=== PATIENT | female | born 1930 | race Caucasian/White ===

== ENCOUNTER 2017-06-04 07:03 | Inpatient (IN) ==
[2017-06-04] MEDS ORDERED: DiltiaZEM 25 MG/5 ML INJECTION IVP ONE ×3 (07:15→07:56)
[2017-06-04] MEDS ORDERED: NS 1,000 ML IV ONE (07:15)
--- OUTSIDE RECORDS SUMMARY | 2017-06-04 07:19 | External Medical Summary | Referral Summary ---
:1930 Author Organization [facility] [place] [address] Care Team Providers Name Role Phone Pankaj Arora V Primary Care Physician Encounter [facility] [id number] Date(s): 04/29/15 - 04/29/15 [facility] [place] [phone] [place] Discharge Diagnosis: Screening Discharge Diagnosis: Myalgia Discharge Diagnosis: Need for pneumococcal vaccination Discharge Diagnosis: Hyperlipidemia Discharge Diagnosis: Depression Discharge Diagnosis: Benign essential tremor Discharge Diagnosis: Urine frequency Discharge Diagnosis: Degenerative joint disease involving multiple joints Discharge Diagnosis: Night sweats Discharge Diagnosis: Benign essential hypertension Discharge Disposition: 01-Home or Self Care Attending Physician: Pankaj Arora MD Admitting Physician: Pankaj Arora MD Vital Signs Most recent to oldest [Reference Range]: 1 Temperature Tympanic [36.6-38.1 degC] 35.9 degC *LOW* (04/29/15 9:35 AM) Peripheral Pulse Rate [60-100 bpm] 69 bpm (04/29/15 9:35 AM) Blood Pressure [90-140/60-90 mmHg] 130/60 mmHg (04/29/15 9:35 AM) Problem List Condition Effective Dates Status Health Status Informant Acute cystitis (disorder)(Confirmed) Active Acute cystitis(Confirmed) Active Allergic rhinitis Active (disorder)(Confirmed) Allergic rhinitis(Confirmed) Active Allergies(Confirmed) Active Benign essential hypertension Active (disorder)(Confirmed) Benign essential tremor(Confirmed) Active Generalized osteoarthritis Active (disorder)(Confirmed) Depression(Confirmed) Active Diagnosis - PVSC(Confirmed) Active ESSENTIAL AND OTHER SPECIFIED FORMS OF Active TREMOR(Confirmed) H/O fracture of humerus Active left(Confirmed) Hyperlipidemia(Confirmed) Active Hypertension(Confirmed) Active Malignant neoplasm of skin(Confirmed) Active Normal pressure 2001 Active hydrocephalus(Confirmed) Normal pressure Active hydrocephalus(Confirmed) Osteoarthritis(Confirmed) Active OTHER PREMATURE BEATS(Confirmed) Active Postmenopausal(Confirmed)1 Active Postmenopausal state Active (finding)(Confirmed) Problems with sight(Confirmed) Active Recurrent cystitis(Confirmed) Active Skin cancer(Confirmed) Active 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 Vision problems(Confirmed) Active 1Age Related - natural Allergies, Adverse Reactions, Alerts No Known Medication Allergies Medications amLODIPine 5 mg oral tablet 5 mg, Oral, Daily, # 90 Each, 3 Refill(s), Pharmacy: [facility], 5 mg Oral Daily Start Date: 11/13/14 Status: Orderedatenolol 100 mg oral tablet 1 tabs, Oral, Daily, # 90 tabs, 3 Refill(s), Pharmacy: [facility], 1 tabs Oral Daily Start Date: 08/31/14 Status: OrderedCalcium 600+D See Instructions, 1 tabs Oral every other day, 0 Refill(s) Start Date: 04/23/14 Status: OrderedFish Oil oral capsule 1 caps, Oral, Daily, # 100 caps, 0 Refill(s) Start Date: 04/23/14 Status: OrderedFluvirin [id number] intramuscular suspension 0 Refill(s) Start Date: 04/23/14 Status: Orderedhydrochlorothiazide 12.5 mg oral capsule 12.5 mg 1 caps, Oral, Daily, # 90 caps, 3 Refill(s), Pharmacy: [facility], 1caps Oral Daily Start Date: 05/10/15 Status: Orderedlosartan 100 mg oral tablet 0.5 tabs, Oral, Daily, # 45 tabs, 3 Refill(s), Pharmacy: [facility], 0.5 tabs Oral Daily Start Date: 09/24/14 Status: Orderedpravastatin 40 mg oral tablet 40 mg, Oral, Bedtime (once a day), # 90 tabs, 0 Refill(s), Pharmacy: [facility], 40 mg Oral Bedtime (once a day) Start Date: 03/12/15 Status: Orderedsertraline 100 mg oral tablet 100 mg 1 tabs, Oral, Daily, # 90 tabs, 1 Refill(s), Pharmacy: [facility], 1 tabs Oral Daily Start Date: 04/10/15 Status: OrderedVitamin C 0 Refill(s) Start Date: 04/23/14 Status: Ordered Results No data available for this section Immunizations Vaccine Date Refusal Reason tetanus/diphth/pertuss (Tdap) adult/adol 03/15/13 hepatitis A adult vaccine 11/08/96 influenza virus vaccine, H1N1, inactivat 09/25/09 influenza virus vaccine, inactivated 07/02/15 influenza virus vaccine, inactivated 06/28/14 influenza virus vaccine, live 06/09/13 influenza virus vaccine, live 06/01/12 influenza virus vaccine, live 06/10/11 pneumococcal 13-valent conjugate vaccine 07/02/15 pneumococcal 13-valent conjugate vaccine 04/29/15 pneumococcal 23-polyvalent vaccine 05/21/03 tetanus-diphth toxoids (Td) adult/adol 03/18/01 Procedures Procedure Date Related Diagnosis Body Site Mammogram - screening 01/05/12 Open reduction with internal fixation 2010 DEXA - Diagnostic 04/25/09 Mammogram diagnostic 03/18/09 Colonoscopy 01/23/02 Shunt 2002 Appendectomy Cataract extraction Perineal tear repair Tonsillectomy Social History Social History Type Response Smoking Status Never smoker Assessment and Plan Extracted from: Title: CRMMP Author: Pankaj Arora MD Date: 04/29/15 Assessment/Plan Benign essential hypertension Stable. Continue present care. Ordered: Basic Metabolic Panel CBC w/ Differential Benign essential tremor Degenerative joint disease involving multiple joints Depression Hyperlipidemia Ordered: Lipid Panel Myalgia Ordered: Creatine Kinase Need for pneumococcal vaccination Ordered: pneumococcal 13-valent conjugate vaccine, 0.5 mL, IntraMuscular, Daily, Order Duration: 1 doses, First Dose: 04/29/15 10:26:00 CDT, Stop Date: 04/30/15 8:59: 00 CDT, Form: Syringe Night sweats Ordered: Sedimentation Rate Screening Ordered: MG Mammogram Routine Screening Bilat Urine frequency Ordered: Urinalysis with Culture if Indicated Orders: MG Mammogram Routine Screening Bilat She has multiple issues but overall seems to be fairly stable. The night sweats raise a concern about an inflammatory process and we will do CBC and sedimentation rate. Myalgias and arthralgias als o raises a concern about statin-induced myopathy and we will check a CPK level. Obtain urinalysis to rule out treatable/infectious cause of her urine frequency. She'll come in fasting another day fo r the labs. Continue current medications. Follow-up 6 months or sooner if needed.
--- OUTSIDE RECORDS SUMMARY | 2017-06-04 07:19 | External Medical Summary | Referral Summary ---
:1930 Author Organization [facility] [place] [address] Care Team Providers Name Role Phone Pankaj Arora V Primary Care Physician Encounter [facility] [id number] Date(s): 04/29/15 - 04/29/15 [facility] [address] [place] [phone] [place] Discharge Diagnosis: [...] Daily, # 90 Each, 3 Refill(s), [facility], 5 mg Oral Daily Start Date: 11/13/14 Status: Orderedatenolol 100 mg oral tablet 1 tabs, Oral, Daily, # 90 tabs, 3 Refill(s), Pharmacy: [facility], 1 tabs Oral Daily Start Date: 08/31/14 Status: OrderedCalcium 600+D See Instructions, 1 tabs Oral every other day, 0 Refill(s) Start Date: 04/23/14 Status: OrderedFish Oil oral capsule 1 caps, Oral, Daily, # 100 caps, 0 Refill(s) Start Date: 04/23/14 Status: OrderedFluvirin [id number] intramuscular suspension 0 Refill(s) Start Date: 04/23/14 Status: Orderedhydrochlorothiazide 12.5 mg oral capsule 12.5 mg 1 caps, Oral, Daily, # 90 caps, 3 Refill(s), Pharmacy: [facility], 1caps Oral Daily Start Date: 05/10/15 Status: Orderedlosartan 100 mg oral tablet 0.5 tabs, Oral, Daily, # 45 tabs, 3 Refill(s), [facility], 0.5 tabs Oral Daily Start Date: 09/24/14 Status: Orderedpravastatin 40 mg oral tablet 40 mg, Oral, Bedtime (once a day), # 90 tabs, 0 Refill(s), [facility], 40 mg Oral Bedtime (once a day) Start Date: 03/12/15 Status: Orderedsertraline 100 mg oral tablet 100 mg 1 tabs, Oral, Daily, # 90 tabs, 1 Refill(s), Pharmacy: [email or web address], 1 tabs Oral Daily [...]
--- OUTSIDE RECORDS SUMMARY | 2017-06-04 07:20 | External Medical Summary | Referral Summary ---
:1930 Author Organization [facility] [address] [place] [address] Care Team Providers Name Role Phone Pankaj Arora V Primary Care Physician Encounter [facility] [id number] Date(s): 07/18/15 - 07/18/15 [facility] [address] [place] [phone] [place] Discharge Diagnosis: Visit for wound care Discharge Disposition: 01-Home or Self Care Attending Physician: Pankaj Arora MD Admitting Physician: Pankaj Arora MD Vital Signs Most recent to oldest [Reference Range]: 1 Peripheral Pulse Rate [60-100 bpm] 69 bpm (07/18/15 1:55 PM) Blood Pressure [90-140/60-90 mmHg] 122/60 mmHg (07/18/15 1:55 PM) Problem List Condition Effective Dates Status Health [...] Malignant neoplasm of skin(Confirmed) Active Normal pressure Active hydrocephalus(Confirmed) Normal pressure 2001 Active hydrocephalus(Confirmed) Osteoarthritis(Confirmed) Active OTHER PREMATURE BEATS(Confirmed) Active Postmenopausal state Active (finding)(Confirmed) Postmenopausal(Confirmed)1 Active Problems with sight(Confirmed) Active Recurrent cystitis(Confirmed) Active Skin cancer(Confirmed) Active 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 Vision problems(Confirmed) Active 1Age Related - natural Allergies, Adverse Reactions, Alerts No Known Medication Allergies Medications amLODIPine 5 mg oral tablet See Instructions, TAKE 1 TABLET EVERY DAY, # 90 tabs, 3 Refill(s), eRx: [facility], TAKE 1 TABLET EVERY DAY Start Date: 08/14/15 Status: Orderedatenolol 100 mg oral tablet See Instructions, TAKE 1 TABLET EVERY DAY, # 90 tabs, 1 Refill(s), eRx: [facility], TAKE 1 TABLET EVERY DAY Start Date: 11/11/15 Status: OrderedCalcium 600+D See Instructions, 1 tabs Oral every other day, 0 Refill(s) Start Date: 04/23/14 Status: OrderedFish Oil oral capsule 1 caps, Oral, Daily, # 100 caps, 0 Refill(s) Start Date: 04/23/14 Status: OrderedFluvirin [id number] intramuscular suspension 0 Refill(s) Start Date: 04/23/14 Status: Orderedhydrochlorothiazide 12.5 mg oral capsule 12.5 mg 1 caps, Oral, Daily, # 90 caps, 3 Refill(s), Pharmacy: [facility], 1caps Oral Daily Start Date: 05/10/15 Status: Orderedlosartan 100 mg oral tablet See Instructions, TAKE 1/2 TABLET EVERY DAY, # 45 tabs, 1 Refill(s), eRx: [facility], TAKE 1/2 TABLET EVERY DAY Start Date: 11/11/15 Status: Orderedpravastatin 40 mg oral tablet 40 mg, Oral, Bedtime (once a day), # 90 tabs, 0 Refill(s), [facility]acy: [facility], 40 mg Oral Bedtime (once a day) Start Date: 03/12/15 Status: Orderedsertraline 100 mg oral tablet 100 mg 1 tabs, Oral, Daily, # 90 tabs, 1 Refill(s), Pharmacy: [facility], 1 tabs Oral Daily Start [...] smoker Assessment and Plan Extracted from: Title: Office Visit Note Author: Pankaj Arora MD Date: 07/18/15 Assessment/Plan Visit for wound care New Telfa dressing provided. Reassurance that this is proceeding as expected and I encouraged/described ongoing wound care for her at home. At this point I don't think any further follow-up is need ed in light she has further questions. Follow-up when necessary.
--- OUTSIDE RECORDS SUMMARY | 2017-06-04 07:20 | External Medical Summary | Referral Summary ---
:1930 Author Organization [facility] [place] [address] Care Team Providers Name Role Phone Pankaj Arora V Primary Care Physician Encounter [facility] Date(s): 06/17/15 - 06/17/15 [facility] [address] [place] [phone] [place] Discharge Diagnosis: Pain of right breast Discharge Disposition: 01-Home or Self Care Attending Physician: Dilan Beltran APRN Admitting Physician: Dilan Beltran APRN Referring Physician: Pankaj Arora MD Vital Signs Most recent to oldest [Reference Range]: 1 Peripheral Pulse Rate [60-100 bpm] 67 bpm (06/17/15 8:28 AM) Respiratory Rate [14-20 br/min] 16 br/min (06/17/15 8:28 AM) Blood Pressure [90-140/60-90 mmHg] 110/60 mmHg (06/17/15 8:28 AM) SpO2 96 % (06/17/15 8:28 AM) Problem List Condition Effective Dates Status [...] Active Normal pressure Active hydrocephalus(Confirmed) Normal pressure 2002 Active hydrocephalus(Confirmed) Osteoarthritis(Confirmed) Active OTHER PREMATURE BEATS(Confirmed) Active Postmenopausal state Active (finding)(Confirmed) Postmenopausal(Confirmed)1 Active Problems with sight(Confirmed) Active Recurrent cystitis(Confirmed) Active Skin cancer(Confirmed) Active 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 Vision problems(Confirmed) Active 1Age Related - natural Allergies, Adverse Reactions, Alerts No Known Medication Allergies Medications amLODIPine 5 mg oral tablet See Instructions, TAKE 1 TABLET EVERY DAY, # 90 tabs, 3 Refill(s), eRx: [facility], TAKE 1 TABLET EVERY DAY Start Date: 08/14/15 Status: Orderedatenolol 100 mg oral tablet See Instructions, TAKE 1 TABLET EVERY DAY, # 90 tabs, 1 Refill(s), eRx: [facility], TAKE 1 TABLET EVERY DAY Start Date: 11/11/15 Status: OrderedCalcium 600+D See Instructions, 1 tabs Oral every other day, 0 Refill(s) Start Date: 04/23/14 Status: OrderedFish Oil oral capsule 1 caps, Oral, Daily, # 100 caps, 0 Refill(s) Start Date: 04/23/14 Status: OrderedFluvirin [id number] intramuscular suspension 0 Refill(s) Start Date: 04/23/14 Status: Orderedhydrochlorothiazide 12.5 mg oral capsule 12.5 mg 1 caps, Oral, Daily, # 90 caps, 3 Refill(s), Pharmacy: [facility], 1caps Oral Daily Start Date: 05/10/15 Status: Orderedlosartan 100 mg oral tablet See Instructions, TAKE 1/2 TABLET EVERY DAY, # 45 tabs, 1 Refill(s), eRx: [facility], TAKE 1/2 TABLET EVERY DAY Start Date: 11/11/15 Status: Orderedpravastatin 40 mg oral tablet 40 mg, Oral, Bedtime (once a day), # 90 tabs, 0 Refill(s), Pharmacy: [facility], 40 mg Oral Bedtime (once a day) Start Date: 03/12/15 Status: Orderedsertraline 100 mg oral tablet 100 mg 1 tabs, Oral, Daily, # 90 tabs, 1 Refill(s), Pharmacy: [facility], 1 tabs Oral Daily [...] Extracted from: Title: Office Visit Note Author: Dilan Beltran WIRE WELDER Date: 06/17/15 Assessment/Plan 1.Pain of right breast Upon further review of her past medical history, it was found that a screening mammogram picked up a cyst in her right breast, not the left, in the 5 o'clock position. [facility] and[facility]ogram revealed a stable and well marginalized 3 mm cyst in the right breast at the 5 o'clock position as well as an additional cyst at the 9 o 'clock position. Both of these were determined to be benign in nature. These records were found in [facility]. I think it is likely that some of the discomfort she is experiencing is related to at least the cyst in the 5 o'clock position. This corresponds with the physical exam of her breast tissue. Additionally we discussed that at this time a bra without an underwire that instead uses elastic sup port may be helpful in alleviating some of the symptoms she is experiencing.
--- OUTSIDE RECORDS SUMMARY | 2017-06-04 07:20 | External Medical Summary | Referral Summary ---
:1930 Author Organization [facility] [address] [place] [address] Care Team Providers Name Role Phone Pankaj Arora V Primary Care Physician Encounter [facility] [id number] Date(s): 07/18/15 - 07/18/15 [facility] [address] [place] [phone] [place] Discharge Diagnosis: Visit for [...] Daily, # 90 Each, 3 Refill(s), Pharmacy: [facility], 5 mg Oral Daily Start Date: 11/13/14 Status: Orderedatenolol 100 mg oral tablet 1 tabs, Oral, Daily, # 90 tabs, 3 Refill(s), Pharmacy: [facility], 1 tabs Oral Daily Start Date: 08/31/14 Status: OrderedCalcium 600+D See Instructions, 1 tabs Oral every other day, 0 Refill(s) Start Date: 04/23/14 Status: OrderedFish Oil oral capsule 1 caps, Oral, Daily, # 100 caps, 0 Refill(s) Start Date: 04/23/14 Status: OrderedFluvirin [id number] intramuscular suspension 0 Refill(s) Start Date: 04/23/14 Status: Orderedhydrochlorothiazide 12.5 mg oral capsule 12.5 mg 1 caps, Oral, Daily, # 90 caps, 3 Refill(s), Pharmacy: [facility], 1caps Oral Daily Start Date: 05/10/15 Status: Orderedlosartan 100 mg oral tablet 0.5 tabs, Oral, Daily, # 45 tabs, 3 Refill(s), Pharmacy: [facility], 0.5 tabs Oral Daily Start Date: 09/24/14 Status: Orderedpravastatin 40 mg oral tablet 40 mg, Oral, Bedtime (once a day), # 90 tabs, 0 Refill(s), [facility], 40 mg Oral Bedtime (once a day) Start Date: 03/12/15 Status: Orderedsertraline 100 mg oral tablet 100 mg 1 tabs, Oral, Daily, # 90 tabs, 1 Refill(s), Pharmacy: [facility], 1 tabs Oral Daily Start Date: 04/10/15 Status: OrderedVitamin C 0 Refill(s) Start Date: 04/23/14 Status: Ordered Results No data available for this section Immunizations Vaccine Date Refusal Reason tetanus/diphth/pertuss (Tdap) adult/adol 03/15/13 hepatitis A adult vaccine 2/12/97 influenza virus vaccine, H1N1, inactivat 09/25/09 influenza [...] 04/25/09 Mammogram diagnostic 03/18/09 Colonoscopy 01/23/02 Shunt 2001 Appendectomy Cataract extraction Perineal tear repair Tonsillectomy [...]
--- OUTSIDE RECORDS SUMMARY | 2017-06-04 07:20 | External Medical Summary | Referral Summary ---
:1930 Author Organization [facility] [place] [address] Care Team Providers Name Role Phone Pankaj Arora V Primary Care Physician Encounter [facility] Date(s): 07/15/15 - 07/15/15 [facility] [address] [place] [address]- Discharge Diagnosis: Laceration of forearm Discharge Diagnosis: Traumatic hematoma of forearm Discharge Disposition: 01-Home or Self Care Attending Physician: Pankaj Arora MD Admitting Physician: Pankaj Arora MD Vital Signs Most recent to oldest [Reference Range]: 1 Temperature Tympanic [36.6-38.1 degC] 36.6 degC (07/15/15 2:16 PM) Peripheral Pulse Rate [60-100 bpm] 66 bpm (07/15/15 2:16 PM) Problem List Condition Effective Dates Status [...] Malignant neoplasm of skin(Confirmed) Active Normal pressure 2002 Active hydrocephalus(Confirmed) Normal pressure Active hydrocephalus(Confirmed) Osteoarthritis(Confirmed) [...] Daily, # 90 Each, 3 Refill(s), Pharmacy: [facility], 5 mg Oral Daily Start Date: [...] 0 Refill(s) Start Date: 04/23/14 Status: OrderedFluvirin [id number] intramuscular suspension 0 Refill(s) Start Date: 04/23/14 Status: Orderedhydrochlorothiazide 12.5 mg oral capsule 12.5 mg 1 caps, Oral, Daily, # 90 caps, 3 Refill(s), Pharmacy: [facility], 1caps Oral Daily Start Date: 05/10/15 Status: Orderedlosartan 100 mg oral tablet 0.5 tabs, Oral, Daily, # 45 tabs, 3 Refill(s), Pharmacy: [facility], 0.5 tabs Oral Daily Start Date: 09/24/14 Status: Orderedpravastatin 40 mg oral tablet 40 mg, Oral, Bedtime (once a day), # 90 tabs, 0 Refill(s), [facility], 40 mg Oral Bedtime (once a day) Start Date: 03/12/15 Status: Orderedsertraline 100 mg oral tablet 100 mg 1 tabs, Oral, Daily, # 90 tabs, 1 Refill(s), Pharmacy: [facility], 1 tabs Oral Daily [...] Visit Note Author: Pankaj Arora MD Date: 07/15/15 Assessment/Plan Laceration of forearm Traumatic hematoma of forearm We discussed wound care. Advised that she may carefully cleaned this with soap and water as needed. I placed a Telfa gauze over the laceration and wrapped it with cleaning. I advised that she may changes every 24-48 hours. She was quite uncomfortable with the moving management and we will see her back in a few days to check back on this. We reviewed signs of infection to watch for. We als o discussed the hematoma and the possibility that this could liquefy and possibly even need her seizure for drainage. We will have to watch this over time. Follow-up as above or sooner if needed.
--- OUTSIDE RECORDS SUMMARY | 2017-06-04 07:20 | External Medical Summary | Referral Summary ---
:1930 Author Organization [facility] [place] [address] Care Team Providers Name Role Phone Pankaj Arora V Primary Care Physician Encounter [facility] Date(s): 11/14/15 - 11/14/15 [facility] [address] [place] [phone] [place] Discharge Diagnosis: Abnormal ultrasound of breast Discharge Disposition: 01-Home or Self Care Attending Physician: Pankaj Arora MD Admitting Physician: Pankaj Arora MD Vital Signs Most recent to oldest [Reference Range]: 1 Temperature Tympanic [36.6-38.1 degC] 36.1 degC *LOW* (11/14/15 10:57 AM) Peripheral Pulse Rate [60-100 bpm] 77 bpm (11/14/15 10:57 AM) Blood Pressure [90-140/60-90 mmHg] 52/68 mmHg *LOW* (11/14/15 10:57 AM) Problem List Condition Effective Dates Status [...] DAY, # 90 tabs, 3 Refill(s), eRx: [facility], TAKE 1 TABLET EVERY DAY Start Date: 08/14/15 Status: Orderedatenolol 100 mg oral tablet See Instructions, TAKE 1 TABLET EVERY DAY, # 90 tabs, 1 Refill(s), eRx: [facility], TAKE 1 TABLET EVERY DAY Start Date: 11/11/15 Status: OrderedCalcium 600+D See Instructions, 1 tabs Oral every other day, 0 Refill(s) Start Date: 04/23/14 Status: OrderedFish Oil oral capsule 1 caps, Oral, Daily, # 100 caps, 0 Refill(s) Start Date: 04/23/14 Status: OrderedFluvirin [id number] intramuscular suspension 0 Refill(s) Start Date: 04/23/14 Status: Orderedhydrochlorothiazide 12.5 mg oral capsule 12.5 mg 1 caps, Oral, Daily, # 90 caps, 3 Refill(s), Pharmacy: [facility], 1caps Oral Daily Start Date: 05/10/15 Status: Orderedlosartan 100 mg oral tablet See Instructions, TAKE 1/2 TABLET EVERY DAY, # 45 tabs, 1 Refill(s), eRx: [facility], TAKE 1/2 TABLET EVERY DAY Start Date: 11/11/15 Status: Orderedpravastatin 40 mg oral tablet 40 mg, Oral, Bedtime (once a day), # 90 tabs, 0 Refill(s), Pharmacy: [facility], 40 mg Oral Bedtime (once a day) Start Date: 03/12/15 Status: Orderedsertraline 100 mg oral tablet 100 mg 1 tabs, Oral, Daily, # 90 tabs, 1 Refill(s), Pharmacy: [facility], 1 tabs Oral Daily [...] Visit Note Author: Pankaj Arora MD Date: 11/14/15 Assessment/Plan Abnormal ultrasound of breast Orders: US Breast Left Arrange follow-up repeat ultrasound as recommended by radiologist. Additional follow-up as needed based on those results.
--- OUTSIDE RECORDS SUMMARY | 2017-06-04 07:20 | External Medical Summary | Summary of Care ---
:1930 Author Name Thanh Vides M.D. 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 Refills: 0 Started ActiveCalcium 500 MG Oral Tablet Take 1 tablet daily Quantity: 0 Refills: 0 Started ActiveHydrochlorothiazide 12.5 MG Oral Tablet TAKE 1 TABLET DAILY. Refills: 0 Started ActiveFish Oil 1000 MG Oral Capsule TAKE 1 CAPSULE DAILY. Quantity: 0 Refills: 0 Started ActiveSertraline HCl - 100 MG Oral Tablet TAKE 1 TABLET DAILY. Quantity: 0 Refills: 0 Started ActiveAmLODIPine Besylate 5 MG Oral Tablet TAKE 1 TABLET DAILY. Refills: 0 Started 15-Jul-2010 ActiveVitamin D3 1000 UNIT Oral Capsule TAKE DIRECTED. Refills: 0 Started 15-Jul-2010 ActiveLosartan Potassium TABS Refills: 0 Started 27-Jul-2011 ActiveTylenol TABS Refills: 0 Started 27-Jul-2011 ActivePravastatin Sodium 40 MG Oral Tablet TAKE 1 TABLET DAILY. Refills: 0 Started 25-Jan-2012 Active Allergies and Adverse Reactions Name Dates Details No Known Drug Allergies Status: Active Procedures Procedure Dates Details Procedures not documented Immunization Name Dates Details Immunizations not documented Family History Mother Name Dates Details Family history of Healthy adult (V70.0, Z00.00) Status: Active Father Name Dates Details Family history of Healthy adult (V70.0, Z00.00) Status: Active Social History Name Dates Details Smoking StatusUnknown if ever smokedNever smoker Vital Signs Date Test Result Details 22-Jul-2015 09:05 BP Systolic 124 mm[Hg] Status: BP Diastolic 76 mm[Hg] Status: Heart Rate 72 /min Status: Height 64 in Status: Weight 156.4 lb Status: Body Mass Index Calculated 26.85 kg/m2 Status: Body Surface Area Calculated 1.76 m2 Status: Results Date Description Value Details Results not documented Plan of Care Planned Observations Name Dates Details Planned Goals not documented Goal Planned Encounters Appointment; Provider: Maxx Vides On 27-Jan-2016 08:45 Appointment; Provider: Maxx Vides On 20-Jan-2016 10:45 Instructions Instructions not documented Encounters Appointment; Maxx Vides On 22-Jul-2015 Encounter Diagnosis: Problem not documented 08:45 Appointment; Maxx Vides On 21-Jan-2015 Encounter Diagnosis: Problem not documented 10:45 Appointment; Maxx Vides On 22-Jan-2014 Encounter Diagnosis: Problem not documented 14:15
--- OUTSIDE RECORDS SUMMARY | 2017-06-04 07:20 | External Medical Summary | Referral Summary ---
:1930 Author Organization [facility] [place] [address] Care Team Providers Name Role Phone Pankaj Arora V Primary Care Physician Encounter [facility] [id number] Date(s): 04/29/15 - 04/29/15 [facility] [place] [phone] [place] Discharge Diagnosis: [...] Daily, # 90 Each, 3 Refill(s), Pharmacy: [facility], 5 mg Oral Daily Start Date: 11/13/14 Status: Orderedatenolol 100 mg oral tablet 1 tabs, Oral, Daily, # 90 tabs, 3 Refill(s), Pharmacy: [facility], 1 tabs Oral Daily Start Date: 08/31/14 Status: OrderedCalcium 600+D See Instructions, 1 tabs Oral every other day, 0 Refill(s) Start Date: 04/23/14 Status: OrderedFish Oil oral capsule 1 caps, Oral, Daily, # 100 caps, 0 Refill(s) Start Date: 04/23/14 Status: OrderedFluvirin [id number] intramuscular suspension 0 Refill(s) Start Date: 04/23/14 Status: Orderedhydrochlorothiazide 12.5 mg oral capsule 12.5 mg 1 caps, Oral, Daily, # 90 caps, 3 Refill(s), Pharmacy: [facility], 1caps Oral Daily Start Date: 05/10/15 Status: Orderedlosartan 100 mg oral tablet 0.5 tabs, Oral, Daily, # 45 tabs, 3 Refill(s), Pharmacy: [facility], 0.5 tabs Oral Daily Start Date: 09/24/14 Status: Orderedpravastatin 40 mg oral tablet 40 mg, Oral, Bedtime (once a day), # 90 tabs, 0 Refill(s), Pharmacy: [facility], 40 mg Oral Bedtime (once a day) Start Date: 03/12/15 Status: Orderedsertraline 100 mg oral tablet 100 mg 1 tabs, Oral, Daily, # 90 tabs, 1 Refill(s), Pharmacy: [facility], 1 tabs Oral Daily [...]
--- OUTSIDE RECORDS SUMMARY | 2017-06-04 07:20 | External Medical Summary | Referral Summary ---
:1930 Author Organization [facility] [address] [place] [address] Care Team Providers Name Role Phone Pankaj Arora V Primary Care Physician Encounter Date(s): 07/15/15 - 07/15/15 [facility] [address] [place] [phone] [place] Discharge Diagnosis: Laceration of forearm Discharge Diagnosis: [...] DAY, # 90 tabs, 3 Refill(s), eRx: [facility], TAKE 1 TABLET EVERY DAY Start Date: 08/14/15 Status: Orderedatenolol 100 mg oral tablet See Instructions, TAKE 1 TABLET EVERY DAY, # 90 tabs, 1 Refill(s), eRx: [facility], TAKE 1 TABLET EVERY DAY Start Date: 11/11/15 Status: OrderedCalcium 600+D See Instructions, 1 tabs Oral every other day, 0 Refill(s) Start Date: 04/23/14 Status: OrderedFish Oil oral capsule 1 caps, Oral, Daily, # 100 caps, 0 Refill(s) Start Date: 04/23/14 Status: OrderedFluvirin [id number] intramuscular suspension 0 Refill(s) Start Date: 04/23/14 Status: Orderedhydrochlorothiazide 12.5 mg oral capsule 12.5 mg 1 caps, Oral, Daily, # 90 caps, 3 Refill(s), Pharmacy: [facility], 1caps Oral Daily Start Date: 05/10/15 Status: Orderedlosartan 100 mg oral tablet See Instructions, TAKE 1/2 TABLET EVERY DAY, # 45 tabs, 1 Refill(s), eRx: [facility], TAKE 1/2 TABLET EVERY DAY Start Date: 11/11/15 Status: Orderedpravastatin 40 mg oral tablet 40 mg, Oral, Bedtime (once a day), # 90 tabs, 0 Refill(s), Pharmacy: [facility], 40 mg Oral Bedtime (once a day) Start Date: 03/12/15 Status: Orderedsertraline 100 mg oral tablet 100 mg 1 tabs, Oral, Daily, # 90 tabs, 1 Refill(s), Pharmacy: [facility], 1 tabs Oral Daily [...]
--- OUTSIDE RECORDS SUMMARY | 2017-06-04 07:20 | External Medical Summary | Referral Summary ---
:1930 Author Organization [facility] [place] [address] Care Team Providers Name Role Phone Pankaj Arora V Primary Care Physician Encounter [facility] [id number] Date(s): 04/27/16 - 04/27/16 [facility] [place] [phone] [place] Discharge Diagnosis: Urine frequency Discharge Diagnosis: Benign essential hypertension Discharge Diagnosis: Hyperlipidemia Discharge Diagnosis: Normal pressure hydrocephalus Discharge Diagnosis: Depression Discharge Diagnosis: Benign essential tremor Discharge Diagnosis: Encounter for medication monitoring Discharge Disposition: 01-Home or Self Care Attending Physician: Pankaj Arora MD Admitting Physician: Pankaj Arora MD Vital Signs Most recent to oldest [Reference Range]: 1 Temperature Tympanic [36.6-38.1 degC] 36.8 degC (04/27/16 10:25 AM) Peripheral Pulse Rate [60-100 bpm] 68 bpm (04/27/16 10:25 AM) Blood Pressure [90-140/60-90 mmHg] 126/70 mmHg (04/27/16 10:25 AM) SpO2 98 % (04/27/16 10:25 AM) Problem List Condition Effective Dates Status Health Status Informant Acute cystitis (disorder)(Confirmed) Active Acute cystitis(Confirmed) Active Allergic rhinitis Active (disorder)(Confirmed) Allergic rhinitis(Confirmed) Active Allergies(Confirmed) Active Benign essential hypertension Active (disorder)(Confirmed) Benign essential tremor(Confirmed) Active Generalized osteoarthritis Active (disorder)(Confirmed) Depression(Confirmed) Active Diagnosis - PVSC(Confirmed) Active ESSENTIAL AND OTHER SPECIFIED FORMS < 06/15/14 Resolved OF TREMOR(Confirmed) H/O fracture of humerus Active left(Confirmed) Hyperlipidemia(Confirmed) Active Hypertension(Confirmed) Active Malignant neoplasm of Active skin(Confirmed) Normal pressure Active hydrocephalus(Confirmed) Normal pressure 2001 Active hydrocephalus(Confirmed) Osteoarthritis(Confirmed) Active OTHER PREMATURE BEATS(Confirmed) Active Postmenopausal state Active (finding)(Confirmed) Postmenopausal(Confirmed)1 Active Problems with sight(Confirmed) Active Recurrent cystitis(Confirmed) Active Skin cancer(Confirmed) Active 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 Vision problems(Confirmed) Active 1Age Related - natural Allergies, Adverse Reactions, Alerts No Known Medication Allergies Medications Aleve mg, Oral, 0 Refill(s) Start Date: 04/27/16 Status: OrderedamLODIPine 5 mg oral tablet See Instructions, TAKE 1 TABLET EVERY DAY, # 90 tabs, 3 Refill(s), eRx: [facility], TAKE 1 TABLET EVERY DAY Start Date: 08/14/15 Status: Orderedaspirin 81 mg oral tablet mg tabs, Oral, Daily, 0 Refill(s) Start Date: 01/31/16 Status: Orderedatenolol 100 mg oral tablet See Instructions, TAKE 1 TABLET EVERY DAY, # 90 tabs, 1 Refill(s), eRx: [facility], TAKE 1 TABLET EVERY DAY Start Date: 11/11/15 Status: OrderedCalcium 600+D See Instructions, 1 tabs Oral every other day, 0 Refill(s) Start Date: 04/23/14 Status: OrderedFish Oil oral capsule 1 caps, Oral, Daily, # 100 caps, 0 Refill(s) Start Date: 04/23/14 Status: OrderedFluvirin 8209-0939 intramuscular suspension 0 Refill(s) Start Date: 04/23/14 Status: Orderedhydrochlorothiazide 12.5 mg oral capsule 12.5 mg 1 caps, Oral, Daily, # 90 caps, 3 Refill(s), Pharmacy: [facility], 1caps Oral Daily Start Date: 05/10/15 Status: Orderedlosartan 100 mg oral tablet See Instructions, TAKE 1/2 TABLET EVERY DAY, # 45 tabs, 1 Refill(s), eRx: [facility], TAKE 1/2 TABLET EVERY DAY Start Date: 11/11/15 Status: Orderedpravastatin 40 mg oral tablet See Instructions, TAKE 1 TABLET AT BEDTIME ONE TIME DAILY, # 90 tabs, eRx: [facility], TAKE 1 TABLET AT BEDTIME ONE TIME DAILY Start Date: 03/10/16 Status: Orderedsertraline 50 mg oral tablet 50 mg 1 tabs, Oral, Daily, # 90 tabs, 2 Refill(s), Pharmacy: [id number], 1 tabs OralDaily Start Date: 04/27/16 Status: OrderedValium 0 Refill(s) Start Date: 01/31/16 Status: OrderedVitamin C 0 Refill(s) Start Date: [...] Title: CRMMP Author: Pankaj Arora MD Date: 04/27/16 Impression and Plan Diagnosis Benign essential hypertension (RBF08-PW I10, Discharge, Medical). Depression (QFX81-HD F32.9, Discharge, Medical). Benign essential tremor (QRI06-JQ G25.0, Discharge, Medical). Hyperlipidemia (LUB46-KJ E78.5, Discharge, Medical). Urine frequency (SGK26-AB R35.0, Discharge, Medical). Normal pressure hydrocephalus (QYG56-GM G91.2, Discharge, Medical). Encounter for medication monitoring (NHG36-NG Z51.81, Discharge, Medical). Orders Orders (Selected) Outpatient Orders Future (On Hold) BMP: Fasting Lipid Profile: Prescriptions Prescribed sertraline 50 mg oral tablet: 50 mg=1 tabs, Oral, Daily, 90 tabs, 2 Refill(s).
--- OUTSIDE RECORDS SUMMARY | 2017-06-04 07:20 | External Medical Summary | Referral Summary ---
:1930 Author Organization [facility] [place] [address] Care Team Providers Name Role Phone Pankaj Arora V Primary Care Physician Encounter [facility] [id number] Date(s): 10/29/16 - 10/29/16 [facility] [place] [phone] [place] Discharge Diagnosis: Pulse irregularity Discharge Diagnosis: Polypharmacy Discharge Diagnosis: Benign essential hypertension Discharge Diagnosis: Frequent falls Discharge Diagnosis: Contusion of left hand Discharge Diagnosis: Normal pressure hydrocephalus Discharge Diagnosis: Chronic subdural hematoma Discharge Diagnosis: Urine frequency Discharge Diagnosis: Depression Discharge Diagnosis: Poor memory Discharge Disposition: 01-Home or Self Care Attending Physician: Pankaj Arora MD Vital Signs Most recent to oldest [Reference Range]: 1 Peripheral Pulse Rate [60-100 bpm] 91 bpm (10/29/16 2:26 PM) Blood Pressure [90-140/60-90 mmHg] 160/72 mmHg *HI* (10/29/16 2:26 PM) Problem List Condition Effective Dates Status [...] skin(Confirmed) Normal pressure Active hydrocephalus(Confirmed) Normal pressure 2002 [...] TAKE 1 TABLET EVERY DAY Start Date: 08/19/16 Status: Orderedaspirin 81 mg oral tablet mg [...] 0 Refill(s) Start Date: 04/23/14 Status: OrderedFluvirin [id number] intramuscular suspension 0 Refill(s) Start Date: 04/23/14 Status: Orderedhydrochlorothiazide 12.5 mg oral capsule See Instructions, TAKE 1 CAPSULE EVERY DAY, # 90 caps, 1 Refill(s), eRx: [facility], TAKE 1 CAPSULE EVERY DAY Start Date: 06/23/16 Status: Orderedlosartan 100 mg oral tablet See Instructions, TAKE 1 TABLET EVERY DAY, # 45 tabs, 1 Refill(s), eRx: [facility] Start Date: 11/11/15 Status: Orderedpravastatin 40 mg oral tablet See Instructions, TAKE 1 TABLET AT BEDTIME ONE TIME DAILY(DUE FOR LIPIDS IN APRIL), # 90 tabs, 1 Refill(s), eRx: [facility], TAKE 1 TABLET AT BEDTIME ONE TIME DAILY(DUE FOR LIPIDS IN APRIL) Start Date: 06/23/16 Status: Orderedsertraline 50 mg oral tablet 50 mg 1 tabs, Oral, Daily, # 90 tabs, 2 Refill(s), [id number], 1 tabs OralDaily Start Date: 04/27/16 Status: OrderedValium 0 Refill(s) Start Date: 01/31/16 Status: OrderedVitamin C 0 Refill(s) Start Date: 04/23/14 Status: Ordered Results Chemistry Most recent to oldest [Reference Range]: 1 Sodium Lvl [135-144 mEq/L] 145 mEq/L *HI* (10/29/16 4:15 PM) Potassium Lvl [3.5-5.2 mEq/L] 4.1 mEq/L (10/29/16 4:15 PM) Chloride [99-111 mEq/L] 105 mEq/L (10/29/16 4:15 PM) CO2 [22-31 mEq/L] 28 mEq/L (10/29/16 4:15 PM) AGAP [3-20] 12 (10/29/16 4:15 PM) BUN [10-20 mg/dL] 27 mg/dL *HI* (10/29/16 4:15 PM) Glucose Lvl [70-99 mg/dL] 102 mg/dL *HI* (10/29/16 4:15 PM) Creatinine Lvl [0.57-1.11 mg/dL] 0.92 mg/dL (10/29/16 4:15 PM) eGFR [>60 mL/min] 58 mL/min 1 *ABN* (10/29/16 4:15 PM) Calcium Lvl [8.9-10.5 mg/dL] 9.0 mg/dL (10/29/16 4:15 PM) 1Result Comment: Multiply eGFR results by 1.21 for race.Urinalysis Most recent to oldest [Reference Range]: 1 UA Color Yellow (10/29/16 4:20 PM) UA Appear Cloudy *ABN* (10/29/16 4:20 PM) UA pH [5.0-8.0] 7.0 (10/29/16 4:20 PM) UA Leuk Est [Negative] Negative (10/29/16 4:20 PM) UA Nitrite [Negative] Negative (10/29/16 4:20 PM) UA Protein [Negative] Pos 1+ *ABN* (10/29/16 4:20 PM) UA Glucose [Negative] Negative (10/29/16 4:20 PM) UA Ketones [Negative] Negative (10/29/16 4:20 PM) UA Urobilinogen [<1.0 mg/dL] 0.2 mg/dL (10/29/16 4:20 PM) UA Bili [Negative] Negative (10/29/16 4:20 PM) UA Blood [Negative] Pos 3+ *ABN* (10/29/16 4:20 PM) UA Spec Grav [1.003-1.030] 1.018 (10/29/16 4:20 PM) Type Clean Catch (10/29/16 4:20 PM) UA WBC [0-4] 5-10 *ABN* (10/29/16 4:20 PM) UA RBC [0-4 /HPF] >50 /HPF *ABN* (10/29/16 4:20 PM) Epithelial Cells 0-2 (10/29/16 4:20 PM) Immunizations Given and Recorded Vaccine Date Status Refusal Reason tetanus/diphth/pertuss (Tdap) adult/adol 03/15/13 Recorded hepatitis A adult vaccine 11/08/96 Given influenza virus vaccine, H1N1, inactivat 09/25/09 Given influenza virus vaccine, inactivated 06/25/16 Recorded influenza virus vaccine, inactivated 07/02/15 Recorded influenza virus vaccine, inactivated 06/28/14 Recorded influenza virus vaccine, live 06/09/13 Given influenza virus vaccine, live 06/01/12 Given influenza virus vaccine, live 06/10/11 Given pneumococcal 13-valent conjugate vaccine 07/02/15 Recorded pneumococcal 13-valent conjugate vaccine 04/29/15 Given pneumococcal 23-polyvalent vaccine 05/21/03 Recorded tetanus-diphth toxoids (Td) adult/adol 03/18/01 Given Procedures Procedure Date Related Diagnosis Body Site Mammogram - screening 01/05/12 Open reduction with internal fixation 2010 DEXA - Diagnostic 04/25/09 Mammogram diagnostic 03/18/09 Colonoscopy 01/23/02 Shunt 2002 Appendectomy Cataract extraction Perineal tear repair Tonsillectomy Social History Social History Type Response Smoking Status Never smoker Assessment and Plan Extracted from: Title: 6 Month CDM Author: Pankaj Arora MD Date: 10/29/16 Impression and Plan Diagnosis Benign essential hypertension ([id number]-IO I10, Discharge, Medical). Chronic subdural hematoma (AAV77-IJ I62.03, Discharge, Medical). Contusion of left hand (SXJ96-OB S60.222A, Discharge, Medical). Depression (AAU98-FE F32.9, Discharge, Medical). Frequent falls (FUJ35-TE R29.6, Discharge, Medical). Normal pressure hydrocephalus (OEI52-AQ G91.2, Discharge, Medical). Polypharmacy (IEO82-CH Z79.899, Discharge, Medical). Poor memory (VNY93-NE R41.3, Discharge, Medical). Pulse irregularity (BOU91-LS R09.89, Discharge, Medical). Urine frequency (EJI99-GS R35.0, Discharge, Medical). Patient Instructions: Counseled: Diet. Orders Orders (Selected) Outpatient Orders Future (On Hold) BMP: Urinalysis with Culture if Indicated: Prescriptions Prescribed amLODIPine 5 mg oral tablet: See Instructions, TAKE 1 TABLET EVERY DAY, 90 tabs , 1 Refill(s).
--- OUTSIDE RECORDS SUMMARY | 2017-06-04 07:20 | External Medical Summary | Summary of Care ---
:1930 Author Name Thanh Vides M.D. Address [address], [place] [id number] Care Team Providers Name Role Phone Pankaj Arora Primary Care Provider Unavailable Unavailable Unavailable Unavailable Functional Status Functional Status Health Issues Name Dates Details Functional status health issues are not documented Status: Cognitive Status Health Issues Name Dates Details Cognitive status health issues are not documented Status: Problems Name Dates Details Hydrocephalus (331.4, G91.9) Status: Active Urinary incontinence (788.30, R32) Status: Active Chronic subdural hematoma (432.1, I62.03) Status: Active Normal pressure hydrocephalus (331.5, G91.2) Status: Active Medications Name Dates Details Atenolol [...] Immunization Name Dates Details Immunizations not documented Social History Name Dates Details Smoking StatusUnknown if ever smokedNever smoker Vital Signs Date Test Result Details 21-Jan-2015 10:56 BP Systolic 120 mm[Hg] Status: BP Diastolic 62 mm[Hg] Status: Heart Rate 66 /min Status: Weight 154.6 lb Status: Results Date Description Value Details Results not documented Plan of Care Planned Observations Name Dates Details Planned Goals not documented Goal Instructions Instructions not documented Encounters Appointment; Maxx Vides On 21-Jan-2015 Encounter Diagnosis: Problem not documented 10:45 Appointment; Maxx Vides On 22-Jan-2014 Encounter Diagnosis: Problem not documented 14:15 Appointment; Maxx Vides On 23-Jan-2013 Encounter Diagnosis: Problem not documented 15:15
--- OUTSIDE RECORDS SUMMARY | 2017-06-04 07:21 | External Medical Summary | Referral Summary ---
:1930 Author Organization [facility] [place] [address] Care Team Providers Name Role Phone Pankaj Arora V Primary Care Physician Encounter [facility] Date(s): 01/31/16 - 01/31/16 [facility] [address] [place] [phone] [place] Discharge Diagnosis: Dizziness Discharge Disposition: 01-Home or Self Care Attending Physician: Pankaj Arora MD Admitting Physician: Pankaj Arora MD Vital Signs Most recent to oldest [Reference Range]: 1 Temperature Tympanic [36.6-38.1 degC] 36.2 degC *LOW* (01/31/16 10:41 AM) Peripheral Pulse Rate [60-100 bpm] 80 bpm (01/31/16 10:41 AM) Blood Pressure [90-140/60-90 mmHg] 150/69 mmHg *HI* (01/31/16 10:41 AM) Problem List Condition Effective Dates Status [...] DAY, # 90 tabs, 3 Refill(s), eRx: [facility], TAKE 1 TABLET EVERY DAY Start Date: 08/14/15 Status: Orderedaspirin 81 mg oral tablet mg tabs, Oral, Daily, 0 Refill(s) Start Date: 01/31/16 Status: Orderedatenolol 100 mg oral tablet See Instructions, TAKE 1 TABLET EVERY DAY, # 90 tabs, 1 Refill(s), eRx: [facility], TAKE 1 TABLET EVERY DAY Start Date: 11/11/15 Status: OrderedCalcium 600+D See Instructions, 1 tabs Oral every other day, 0 Refill(s) Start Date: 04/23/14 Status: OrderedFish Oil oral capsule 1 caps, Oral, Daily, # 100 caps, 0 Refill(s) Start Date: 04/23/14 Status: OrderedFluvirin [id number] intramuscular suspension 0 Refill(s) Start Date: 04/23/14 Status: Orderedhydrochlorothiazide 12.5 mg oral capsule 12.5 mg 1 caps, Oral, Daily, # 90 caps, 3 Refill(s), Pharmacy: [facility], 1caps Oral Daily Start Date: 05/10/15 Status: Orderedlosartan 100 mg oral tablet See Instructions, TAKE 1/2 TABLET EVERY DAY, # 45 tabs, 1 Refill(s), eRx: [facility], TAKE 1/2 TABLET EVERY DAY Start Date: 11/11/15 Status: Orderedpravastatin 40 mg oral tablet 40 mg, Oral, Bedtime (once a day), # 90 tabs, 0 Refill(s), Pharmacy: [facility], 40 mg Oral Bedtime (once a day) Start Date: 03/12/15 Status: Orderedsertraline 100 mg oral tablet 100 mg 1 tabs, Oral, Daily, # 90 tabs, 1 Refill(s), Pharmacy: [facility], 1 tabs Oral Daily Start Date: 04/10/15 Status: OrderedValium 0 Refill(s) Start Date: 01/31/16 [...] smoker Assessment and Plan Extracted from: Title: Post ER Follow Up Author: Pankaj Arora MD Date: 01/31/16 Impression and Plan Diagnosis Dizziness (TVH65-MU R42, Discharge, Medical). Plan: Reassurance that no major problem identified, observe and follow up as needed. I think the respiratory symptoms of taking a deep breath or just due to of physiologic "sigh". Home O2 not indicated at this time, patient is at 97% on room air. .
--- OUTSIDE RECORDS SUMMARY | 2017-06-04 07:21 | External Medical Summary | Summary of Care ---
:1930 Author Name Thanh Vides M.D. Address Unavailable Unavailable , Care Team Providers Name Role Phone Thanh Vides M.D. 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 Refills: 0 Start Active Calcium 500 MG TABS Take 1 tablet daily Quantity: 0 Refills: 0 Start Active HydroCHLOROthiazide 12.5 MG Oral Tablet TAKE 1 TABLET DAILY. Refills: 0 Start Active Fish Oil 1000 MG Oral Capsule TAKE 1 CAPSULE DAILY. Quantity: 0 Refills: 0 Start Active Sertraline HCl - 100 MG Oral Tablet TAKE 1 TABLET DAILY. Quantity: 0 Refills: 0 Start Active AmLODIPine Besylate 5 MG Oral Tablet TAKE 1 TABLET DAILY. Refills: 0 Start 15-Jul-2010 Active Vitamin D3 1000 UNIT Oral Capsule TAKE DIRECTED. Refills: 0 Start 15-Jul-2010 Active Losartan Potassium 100 MG Oral Tablet TAKE 1 TABLET DAILY. Refills: 0 Start 27-Jul-2011 Active Tylenol TABS Refills: 0 Start 27-Jul-2011 Active Pravastatin Sodium 40 MG Oral Tablet TAKE 1 TABLET DAILY. Refills: 0 Start 25-Jan-2012 Active Vitamin C 500 MG Oral Capsule Take 2 capsules a day. Refills: 0 Maxx Vides M.D. Start 20-Jan-2016 Active Donepezil HCl - 10 MG Oral Tablet Take one tab daily after completing 5mg daily times one month. Quantity: 30 Refills: 5 Maxx Vides M.D. Start 10-Nov-2016 Active Allergies and Adverse Reactions Name Dates Details No Known Drug Allergies (Allergy) Status: Active Procedures Procedure Dates Details Procedures not documented Immunization Name Dates Details Immunizations not documented Family History Mother Name Dates Details Family history of Healthy adult Status: Active Father Name Dates Details Family history of Healthy adult Status: Active Social History Name Dates Details - Status: Smoking Status Name Dates Details Unknown if ever smoked Never smoker Vital Signs Date Test Result Details 19-Jan-2017 16:03 BP Systolic 128 mm[Hg] Status: Comments: Location: LUE; Position: Sitting BP Diastolic 70 mm[Hg] Status: Comments: Location: LUE; Position: Sitting Heart Rate 72 /min Status: Comments: Location: ; Weight 157.0 lb Status: Physical Findings 98 Status: Comments: O2 Saturation Body Mass Index Calculated 26.95 kg/m2 Status: Body Surface Area Calculated 1.76 m2 Status: Results Date Description Value Details Results not documented Plan of Care Name Dates Details Planned Observations Planned Goals not documented Planned Encounters Appointment; Provider: Maxx Vides M.D. On 20-Jul-2017 15:15 Interventions Provided Medication ChangesDonepezil HCl - 5 MG Oral Tablet - Completed Instructions Name Dates Details Instructions not documented Encounters Appointment; Maxx Vides M.D. On 10-Nov-2016 Encounter Diagnosis: Problem not documented 16:15 Appointment; Maxx Vides M.D. On 20-Jan-2016 Encounter Diagnosis: Problem not documented 10:45 Appointment; Maxx Vides M.D. On 22-Jul-2015 Encounter Diagnosis: Problem not documented 08:45 Appointment; Maxx Vides M.D. On 21-Jan-2015 Encounter Diagnosis: Problem not documented 10:45
--- OUTSIDE RECORDS SUMMARY | 2017-06-04 07:21 | External Medical Summary | Referral Summary ---
:1930 Author Organization [facility] [place] [address] Care Team Providers Name Role Phone Pankaj Arora V Primary Care Physician Encounter [facility] [id number] Date(s): 10/28/15 - 10/28/15 [facility] [address] [place] [address] Discharge Diagnosis: Benign essential hypertension Discharge Diagnosis: Encounter for medication monitoring Discharge Diagnosis: Depression Discharge Diagnosis: Normal pressure hydrocephalus Discharge Diagnosis: Degenerative joint disease involving multiple joints Discharge Disposition: 01-Home or Self Care Attending Physician: Pankaj Arora MD Admitting Physician: Pankaj Arora MD Vital Signs Most recent to oldest [Reference Range]: 1 Temperature Tympanic [36.6-38.1 degC] 36 degC *LOW* (10/28/15 8:45 AM) Peripheral Pulse Rate [60-100 bpm] 75 bpm (10/28/15 8:45 AM) Blood Pressure [90-140/60-90 mmHg] 185/80 mmHg *HI* (10/28/15 8:45 AM) Problem List Condition Effective Dates Status [...] DAY, # 90 tabs, 3 Refill(s), eRx: [facility], TAKE 1 TABLET EVERY DAY Start Date: 08/14/15 Status: Orderedatenolol 100 mg oral tablet See Instructions, TAKE 1 TABLET EVERY DAY, # 90 tabs, eRx: [facility], TAKE 1 TABLET EVERY DAY Start Date: 09/12/15 Status: OrderedCalcium 600+D See Instructions, 1 tabs Oral every other day, 0 Refill(s) Start Date: 04/23/14 Status: OrderedFish Oil oral capsule 1 caps, Oral, Daily, # 100 caps, 0 Refill(s) Start Date: 04/23/14 Status: OrderedFluvirin [id number] intramuscular suspension 0 Refill(s) Start Date: 04/23/14 Status: Orderedhydrochlorothiazide 12.5 mg oral capsule 12.5 mg 1 caps, Oral, Daily, # 90 caps, 3 Refill(s), Pharmacy: [facility], 1caps Oral Daily Start Date: 05/10/15 Status: Orderedlosartan 100 mg oral tablet See Instructions, TAKE 1/2 TABLET EVERY DAY, # 45 tabs, eRx: [facility], TAKE 1/2TABLET EVERY DAY Start Date: 09/12/15 Status: Orderedpravastatin 40 mg oral tablet 40 mg, Oral, Bedtime (once a day), # 90 tabs, 0 Refill(s), Pharmacy: [facility], 40 mg Oral Bedtime (once a day) Start Date: 03/12/15 Status: Orderedsertraline 100 mg oral tablet 100 mg 1 tabs, Oral, Daily, # 90 tabs, 1 Refill(s), Pharmacy: [facility], 1 tabs Oral Daily Start Date: 04/10/15 Status: OrderedVitamin C 0 Refill(s) Start Date: 04/23/14 Status: Ordered Results Chemistry Most recent to oldest [Reference Range]: 1 Sodium Lvl [135-144 mEq/L] 139 mEq/L (10/28/15 10:45 AM) Potassium Lvl [3.5-5.2 mEq/L] 4.2 mEq/L (10/28/15 10:45 AM) Chloride [99-111 mEq/L] 100 mEq/L (10/28/15 10:45 AM) CO2 [22-31 mEq/L] 27 mEq/L (10/28/15 10:45 AM) AGAP [3-20] 12 (10/28/15 10:45 AM) BUN [10-20 mg/dL] 21 mg/dL *HI* (10/28/15 10:45 AM) Glucose Lvl [70-99 mg/dL] 98 mg/dL (10/28/15 10:45 AM) Creatinine Lvl [0.57-1.11 mg/dL] 0.80 mg/dL (10/28/15 10:45 AM) eGFR [>60 mL/min] >60 mL/min 1 (10/28/15 10:45 AM) Calcium Lvl [8.9-10.5 mg/dL] 8.7 mg/dL *LOW* (10/28/15 10:45 AM) 1Result Comment: Multiply eGFR results by 1.21 for race. Immunizations Vaccine Date Refusal Reason tetanus/diphth/pertuss (Tdap) [...] Visit Note Author: Pankaj Arora MD Date: 10/28/15 Assessment/Plan Benign essential hypertension Ordered: Basic Metabolic Panel Degenerative joint disease involving multiple joints Depression Encounter for medication monitoring Ordered: Basic Metabolic Panel Normal pressure hydrocephalus Today's blood pressure is elevated although it is likely an outlier. She's going to monitor blood pressures 2-3 times per week for a month and let us know how her blood pressures do. Otherwise we w ill continue present medications. Check BMP is monitoring. Follow-up 6 months or sooner if needed.
--- OUTSIDE RECORDS SUMMARY | 2017-06-04 07:21 | External Medical Summary | Referral Summary ---
:1930 Author Organization [facility] [address] [place] [address] Care Team Providers Name Role Phone Pankaj Arora V Primary Care Physician Encounter [facility] [id number] Date(s): 04/29/15 - 04/29/15 [facility] [address] [place] [address] [place] Discharge Diagnosis: [...] DAY, # 90 tabs, 3 Refill(s), eRx: [facility], TAKE 1 TABLET EVERY DAY Start Date: 08/14/15 Status: Orderedatenolol 100 mg oral tablet See Instructions, TAKE 1 TABLET EVERY DAY, # 90 tabs, eRx: [facility], TAKE 1 TABLET EVERY DAY Start Date: 09/12/15 Status: OrderedCalcium 600+D See Instructions, 1 tabs Oral every other day, 0 Refill(s) Start Date: 04/23/14 Status: OrderedFish Oil oral capsule 1 caps, Oral, Daily, # 100 caps, 0 Refill(s) Start Date: 04/23/14 Status: OrderedFluvirin [id number] intramuscular suspension 0 Refill(s) Start Date: 04/23/14 Status: Orderedhydrochlorothiazide 12.5 mg oral capsule 12.5 mg 1 caps, Oral, Daily, # 90 caps, 3 Refill(s), Pharmacy: [facility], 1caps Oral Daily Start Date: 05/10/15 Status: Orderedlosartan 100 mg oral tablet See Instructions, TAKE 1/2 TABLET EVERY DAY, # 45 tabs, eRx: [facility], TAKE 1/2TABLET EVERY DAY Start Date: 09/12/15 Status: Orderedpravastatin 40 mg oral tablet 40 mg, Oral, Bedtime (once a day), # 90 tabs, 0 Refill(s), Pharmacy: [facility], 40 mg Oral Bedtime (once a day) Start Date: 03/12/15 Status: Orderedsertraline 100 mg oral tablet 100 mg 1 tabs, Oral, Daily, # 90 tabs, 1 Refill(s), [facility], 1 tabs Oral [...]
--- OUTSIDE RECORDS SUMMARY | 2017-06-04 07:21 | External Medical Summary | Referral Summary ---
:1930 Author Organization [facility] [address] [place] [address] Care Team Providers Name Role Phone Pankaj Arora V Primary Care Physician Encounter [facility] [id number] Date(s): 04/29/15 - 04/29/15 [facility] [place] [address] [place] Discharge Diagnosis: [...] Daily, # 90 Each, 3 Refill(s), Pharmacy: [facility], 5 mg Oral Daily Start Date: 11/13/14 Status: Orderedatenolol 100 mg oral tablet 1 tabs, Oral, Daily, # 90 tabs, 3 Refill(s), Pharmacy: [facility], 1 tabs Oral Daily Start Date: 08/31/14 Status: OrderedCalcium 600+D See Instructions, 1 tabs Oral every other day, 0 Refill(s) Start Date: 04/23/14 Status: OrderedFish Oil oral capsule 1 caps, Oral, Daily, # 100 caps, 0 Refill(s) Start Date: 04/23/14 Status: OrderedFluvirin [id number] intramuscular suspension 0 Refill(s) Start Date: 04/23/14 Status: Orderedhydrochlorothiazide 12.5 mg oral capsule 12.5 mg 1 caps, Oral, Daily, # 90 caps, 3 Refill(s), Pharmacy: [facility], 1caps Oral Daily Start Date: 05/10/15 Status: Orderedlosartan 100 mg oral tablet 0.5 tabs, Oral, Daily, # 45 tabs, 3 Refill(s), Pharmacy: [facility], 0.5 tabs Oral Daily Start Date: 09/24/14 Status: Orderedpravastatin 40 mg oral tablet 40 mg, Oral, Bedtime (once a day), # 90 tabs, 0 Refill(s), Pharmacy: [facility], 40 mg Oral Bedtime (once a day) Start Date: 03/12/15 Status: Orderedsertraline 100 mg oral tablet 100 mg 1 tabs, Oral, Daily, # 90 tabs, 1 Refill(s), Pharmacy: [facility], 1 tabs Oral Daily [...]
--- OUTSIDE RECORDS SUMMARY | 2017-06-04 07:21 | External Medical Summary | Summary of Care ---
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 Start 20-Jan-2016 Active Donepezil HCl - 5 MG Oral Tablet 1 tablet daily x 1 mo x 4wks then increase to 10mg daily Quantity: 30 Refills: 0 Maxx Vides M.D. Start 10-Nov-2016 Active Donepezil HCl - 10 MG Oral [...] smoker Vital Signs Date Test Result Details 10-Nov-2016 16:17 BP Systolic 148 mm[Hg] Status: Comments: Location: LUE; Position: Sitting BP Diastolic 80 mm[Hg] Status: Comments: Location: LUE; Position: Sitting Heart Rate 98 /min Status: Comments: Location: ; Height 64 in Status: Weight 156.0 lb Status: Physical Findings 92 Status: Comments: O2 Saturation Body Mass Index Calculated 26.78 kg/m2 Status: Body Surface Area Calculated 1.76 m2 Status: Results Date Description Value Details Results not documented Plan of Care Name Dates Details Planned Observations Planned Goals not documented Planned Encounters Appointment; Provider: Mxax Vides M.D. On 19-Jan-2017 16:00 Interventions Provided Medication ChangesDonepezil HCl - 10 MG Oral Tablet - StartDonepezil HCl - 5 MG Oral Tablet - Start Instructions Name Dates Details Instructions not documented Encounters Appointment; Maxx Vides M.D. On 20-Jan-2016 Encounter Diagnosis: Problem not documented 10:45 Appointment; Maxx Vides M.D. On 22-Jul-2015 Encounter Diagnosis: Problem not documented 08:45 Appointment; Maxx Vides M.D. On 21-Jan-2015 Encounter Diagnosis: Problem not documented 10:45
--- OUTSIDE RECORDS SUMMARY | 2017-06-04 07:21 | External Medical Summary | Summary of Care ---
:1930 Author Name Thanh Vides M.D. 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
--- OUTSIDE RECORDS SUMMARY | 2017-06-04 07:21 | External Medical Summary | Referral Summary ---
:1930 Author Organization [facility] [address] [place] [address] Care Team Providers Name Role Phone Pankaj Arora V Primary Care Physician Encounter [facility] [id number] Date(s): 04/29/15 - 04/29/15 [facility] [address] [place] [address] [place] Discharge Diagnosis: [...] Daily, # 90 Each, 3 Refill(s), Pharmacy: [facility], 5 mg Oral Daily Start Date: 11/13/14 Status: Orderedatenolol 100 mg oral tablet 1 tabs, Oral, Daily, # 90 tabs, 3 Refill(s), Pharmacy: [facility], 1 tabs Oral Daily Start Date: 08/31/14 Status: OrderedCalcium 600+D See Instructions, 1 tabs Oral every other day, 0 Refill(s) Start Date: 04/23/14 Status: OrderedFish Oil oral capsule 1 caps, Oral, Daily, # 100 caps, 0 Refill(s) Start Date: 04/23/14 Status: OrderedFluvirin 4767-6115 intramuscular suspension 0 Refill(s) Start Date: 04/23/14 Status: Orderedhydrochlorothiazide 12.5 mg oral capsule 12.5 mg 1 caps, Oral, Daily, # 90 caps, 3 Refill(s), Pharmacy: [facility], 1caps Oral Daily Start Date: 05/10/15 Status: Orderedlosartan 100 mg oral tablet 0.5 tabs, Oral, Daily, # 45 tabs, 3 Refill(s), Pharmacy: [facility], 0.5 tabs Oral Daily Start Date: 09/24/14 Status: Orderedpravastatin 40 mg oral tablet 40 mg, Oral, Bedtime (once a day), # 90 tabs, 0 Refill(s), Pharmacy: [facility], 40 mg Oral Bedtime (once a day) Start Date: 03/12/15 Status: Orderedsertraline 100 mg oral tablet 100 mg 1 tabs, Oral, Daily, # 90 tabs, 1 Refill(s), Pharmacy: [facility], 1 tabs Oral Daily [...]
--- OUTSIDE RECORDS SUMMARY | 2017-06-04 07:21 | External Medical Summary | Referral Summary ---
:1930 Author Organization [facility] [place] [address] Care Team Providers Name Role Phone Pankaj Arora V Primary Care Physician Encounter [facility] [id number] Date(s): 04/29/15 - 04/29/15 [facility] [address] [place] [address] [place] Discharge Diagnosis: [...] Daily, # 90 Each, 3 Refill(s), Pharmacy: [facility], 5 mg Oral Daily Start Date: 11/13/14 Status: Orderedatenolol 100 mg oral tablet 1 tabs, Oral, Daily, # 90 tabs, 3 Refill(s), [facility], 1 tabs Oral Daily Start Date: 08/31/14 Status: OrderedCalcium 600+D See Instructions, 1 tabs Oral every other day, 0 Refill(s) Start Date: 04/23/14 Status: OrderedFish Oil oral capsule 1 caps, Oral, Daily, # 100 caps, 0 Refill(s) Start Date: 04/23/14 Status: OrderedFluvirin 9948-6639 intramuscular suspension 0 Refill(s) Start Date: 04/23/14 Status: Orderedhydrochlorothiazide 12.5 mg oral capsule 12.5 mg 1 caps, Oral, Daily, # 90 caps, 3 Refill(s), Pharmacy: [facility], 1caps Oral Daily Start Date: 05/10/15 Status: Orderedlosartan 100 mg oral tablet 0.5 tabs, Oral, Daily, # 45 tabs, 3 Refill(s), Pharmacy: [facility], 0.5 tabs Oral Daily Start Date: 09/24/14 Status: Orderedpravastatin 40 mg oral tablet 40 mg, Oral, Bedtime (once a day), # 90 tabs, 0 Refill(s), Pharmacy: [facility], 40 mg Oral Bedtime (once a day) Start Date: 03/12/15 Status: Orderedsertraline 100 mg oral tablet 100 mg 1 tabs, Oral, Daily, # 90 tabs, 1 Refill(s), Pharmacy: [facility], 1 tabs Oral Daily [...]
--- OUTSIDE RECORDS SUMMARY | 2017-06-04 07:21 | External Medical Summary | Summary of Care ---
:1930 Author Name Thanh Vides M.D. Address [address], [place] [id number] Care Team Providers Name Role Phone Thanh Vides M.D. Unavailable Unavailable Pankaj Arora Primary Care Provider Unavailable Unavailable [...] post ventriculoperitoneal shunt (V45.2, Z98.2) Status: Active Other urinary incontinence (788.39, N39.498) Status: Active Medications Name Dates Details Atenolol [...] 1 TABLET DAILY. Refills: 0 Started 25-Jan-2012 ActiveVitamin C 500 MG Oral Capsule Take 2 capsules a day. Refills: 0 Maxx Vides M.D. Started 20-Jan-2016 Active Allergies and Adverse Reactions Name Dates [...] smoker Vital Signs Date Test Result Details 20-Jan-2016 10:39 BP Systolic 118 mm[Hg] Status: BP Diastolic 64 mm[Hg] Status: Heart Rate 64 /min Status: Weight 164.0 lb Status: O2 SAT 98 % Status: Body Mass Index Calculated 28.15 kg/m2 Status: Body Surface Area Calculated 1.8 m2 Status: Results Date Description Value Details Results not documented Plan of Care Planned Observations Name Dates Details Planned Goals not documented Goal Planned Encounters Appointment; Provider: Maxx Vides On 18-Jan-2017 10:45 Instructions Instructions not documented Encounters Appointment; Maxx Vides On 20-Jan-2016 Encounter Diagnosis: Problem not documented 10:45 Appointment; Maxx Vides On 22-Jul-2015 Encounter Diagnosis: Problem not documented 08:45 Appointment; Maxx Vides On 21-Jan-2015 Encounter Diagnosis: Problem not documented 10:45 Appointment; Maxx Vides On 22-Jan-2014 Encounter Diagnosis: Problem not documented 14:15
[2017-06-04] MEDS: SALINE FLUSH 10ml SYRINGE IVF PRN ×2 (07:22→19:35)
[2017-06-04] MEDS ORDERED: METOPROLOL 5mg/5ml INJECTION IVP ONE (07:44)
[2017-06-04] MEDS: DiltiaZEM Drip 125 MG in NS 100 ML IV SCH ×2 (07:50→19:35)
--- NOTE | 2017-06-04 08:58 | Emergency Department Report ---
General Adult HPI - General Chief complaint: Arrhythmia/Palpitations Stated complaint: weak,cool,pale,diaphoretic Time Seen by Provider: 06/04/17 07:15 - History of Present Illness HPI narrative: 87-year-old female presents with shortness of breath and diaphoresis, onset this a.m. She was lying in bed, suddenly felt short of breath and felt like her heart was racing. Some very mild nausea, no vomiting. No chest pressure or pain. EMS was called and patient was brought to ER. On arrival in the ER she is very quiet, was obviously not feeling well, but pleasant. She states she has no history of heart problems, does take high blood pressure medication. She was uncertain what other medication she might take. Her found a couple bottles and wrote down hydrochlorothiazide, losartan, metoprolol. - Related Data Home Medications Medication Instructions Recorded Confirmed Atenolol 100 mg PO DAILY #0 08/30/11 Pravastatin Sodium 40 mg PO HS #0 08/30/11 hydroCHLOROthiazide 12.5 mg PO DAILY #0 08/30/11 [Hydrochlorothiazide] Cholecalciferol (Vitamin D) 400 unit PO 2XW #0 09/01/11 Calcium Carb/Vitamin D3/Vit K1 1 tab PO QOD #0 01/28/16 [Citracal Soft Chew] Losartan Potassium 50 mg PO HS #0 01/28/16 Aspirin 81 mg PO DAILY #0 01/30/16 Diazepam (Valium) 1 tab PO HS #0 01/30/16 Naproxen Sodium [Aleve] 220 mg PO BID PRN #0 01/30/16 Amlodipine Besylate 5 mg PO DAILY #0 11/09/16 Ascorbate Calcium [Vitamin C] 1 tab PO 2XW #0 11/09/16 [place]-3 Fatty Acids/Fish Oil [Fish 1,000 mg PO DAILY #0 11/09/16 Oil 1,000 mg Capsule] Sertraline HCl 100 mg PO DAILY #0 11/09/16 Allergies Allergy/AdvReac Type Severity Reaction Status Date / Time No Known Allergies Allergy Unverified 11/09/16 17:15 Review of Systems All systems: reviewed and negative except as stated PFSH Hypertension, hyperlipidemia. Other history uncertain. Surgical History: Uncertain - Social History Smoking status: Never smoker second hand exposure: No Substance use type: does not use Alcohol intake frequency: does not drink Physical Exam - Limitations Limitations: other (heart of hearing, personally uncertain of her health history.) - General General appearance: alert, other (quiet withdrawn) - Normal Exams: Head:: Normocephalic without trauma Chest/Respirations:: Clear all chow, with good airflow, and symmetry bilaterally Abdomen:: Bowel sounds positive, soft, non-tender, non-distended, no hepatosplenomegaly, masses or bruits noted Neurological:: Patient is alert, and oriented, cranial nerves, motor/sensory/ cerebellar, exams w/o gross deficits, to observation - Chest Chest inspection: Present: normal inspection, symmetric chest wall rise - Cardiovascular Cardiovascular exam: Present: tachycardia, irregular rhythm Course Vital Signs Pulse Rate 164 H 06/04/17 07:24 Temperature 97.0 F 06/04/17 08:12 Pulse Rate 71 06/04/17 08:27 Respiratory Rate 18 06/04/17 08:27 Blood Pressure 118/58 06/04/17 08:27 Pulse Oximetry 96 06/04/17 08:27 Medical Decision Making - [facility] Narrative Medical decision making narrative: Patient brought in by EMS, IV had been placed during transport, but it infiltrated. IV was replaced and 10 mg of Cardizem was given IV after labs were drawn. EKG obtained showing A. fib with RVR. Patient had minimal response to the 10 mg IV dose, 10 more milligrams of Cardizem was then given IV as well as 5 mg of metoprolol IV. Cardizem drip was ordered at 5 mg per hour. She did improve to approximately 120, having come in between 180 and 200. At 120 beats per minute, she was much more comfortable. Dr. Hudson was consulted and came immediately to see the patient. He recommended giving 5 more milligrams of Cardizem IV and increasing the Cardizem drip to 10 mg per hour. This was done. Patient has stabilized between 9000 bpm. Still in atrial fibrillation. Cardiac enzymes returned negative, CK is elevated as is d-dimer. These were discussed with the hospitalist. Patient is going to be admitted to ICU on Cardizem drip with consult to Dr. Hudson. - Lab Data Result diagrams: 06/04/17 08:27 06/04/17 08:27 Lab Results 06/04/17 06/04/17 06/04/17 Range/Units 08:27 08:27 08:27 WBC 9.0 (4.5-11.0) T/MM3 RBC 4.18 (4.00-5.20) M/MM3 Hgb 13.1 (12-16) GM/DL Hct 37.4 (36-46) % MCV 89.5 (80-100) UM3 MCH 31.3 (26-34) UUG MCHC 35.0 (31-37) GM/DL RDW Std Deviation 44.5 (36.9-50.2) FL Plt Count 164 (130-400) T/MM3 MPV 8.7 L (9.4-12.4) UM3 Immature Gran % (Auto) 0.2 (0.0-0.5) % Neut % (Auto) 79.5 H (33-66) % Lymph % (Auto) 11.3 L (23-45) % [place] % (Auto) 7.6 (0-9.0) % Eos % (Auto) 1.1 (0-4) % Baso % (Auto) 0.3 (0-2) % Neut # 7.1 (1.8-7.7) T/MM3 Lymph # 1.0 (1-4.8) T/MM3 [place] # 0.7 (0-0.8) T/MM3 Eos # 0.1 (0-0.5) T/MM3 Baso # 0.0 (0-0.2) T/MM3 Abs Immat Gran (auto) 0.02 (0.00-0.03) T/MM3 INR 1.06 (0.99-1.21) APTT 26.3 (24-36) SEC D-Dimer 336 H (0-230) NG/ML Turbidity < 20 (0-20) Sodium 146 H (134-144) MEQ/L Potassium 3.7 (3.6-5) MEQ/L Chloride 115 H (98-107) MEQ/L Carbon Dioxide 20 L (22-30) MEQ/L Anion Gap 11 (5-15) MEQ/L BUN 25.0 H (7-17) MG/DL Creatinine 1.1 (0.7-1.2) MG/DL GFR Calculation 47 BUN/Creatinine Ratio 23 (6-26) RATIO Glucose 110 (65-110) MG/DL Calculated Osmolality 286 H (261-280) MOSM/KG Calcium 8.7 (8.4-10.2) MG/DL Total Bilirubin 1.00 (0.20-1.30) MG/DL Icterus Index < 2 (0-7) AST 29 (14-36) U/L ALT 38 (9-52) U/L Alkaline Phosphatase 61 (38-126) U/L Creatine Kinase 312 H (30-135) U/L Troponin I 0.054 (0-0.12) ng/ml Total Protein 6.1 L (6.3-8.2) G/DL Albumin 3.9 (3.5-5.0) G/DL Globulin 2.2 L (2.4-3.6) G/DL Albumin/Globulin Ratio 1.8 (1.1-2.2) RATIO Specimen Hemolysis < 15 (0-25) Disposition Clinical Impression: Atrial fibrillation with RVR Disposition: 02 To [facility] Acute Care Condition: Improved Prescriptions: No Action Pravastatin Sodium 40 mg PO HS #0 Cholecalciferol (Vitamin D) 400 unit PO 2XW #0 Losartan Potassium 50 mg PO HS #0 Diazepam (Valium) 1 tab PO HS #0 Aspirin 81 mg PO DAILY #0 Amlodipine Besylate 5 mg PO DAILY #0 Sertraline HCl 100 mg PO DAILY #0 Ascorbate Calcium [Vitamin C] 1 tab PO 2XW #0 hydroCHLOROthiazide [Hydrochlorothiazide] 12.5 mg PO DAILY #0 Atenolol 100 mg PO DAILY #0 Calcium Carb/Vitamin D3/Vit K1 [Citracal Soft Chew] 1 tab PO QOD #0 Naproxen Sodium [Aleve] 220 mg PO BID PRN #0 PRN Reason: PAIN [place]-3 Fatty Acids/Fish Oil [Fish Oil 1,000 mg Capsule] 1,000 mg PO DAILY #0 Referrals: Pankaj Arora MD [Family Provider] - Time of Disposition: 09:13 - Seen By: physician
--- NOTE | 2017-06-04 09:55 | XRay Report ---
INDICATION: tachy PROCEDURE: CHEST 2-VIEWS UPRIGHT (PA & LAT) Encounter: Initial COMPARISON: January 28, 2016 FINDINGS: The lungs are clear without evidence of focal abnormal airspace opacity. There is no pleural effusion or pneumothorax. The heart size, mediastinal contours and pulmonary vascularity are within normal limits. Left humeral hardware. IMPRESSION: No acute cardiopulmonary disease. .
[2017-06-04] MEDS ORDERED: ONDANSETRON 4 MG/2 ML INJECTION IVP PRN (10:34)
--- NOTE | 2017-06-04 10:43 | History & Physical Report ---
<[address]marilis St - Last Filed: 06/04/17 11:43> History of Present Illness Date: 06/04/17 Chief complaint: fell at home and could not get up HPI: Mrs. Salguero is an 87-year-old female patient of Dr. Pankaj Arora. Her reports when she woke up this morning, she fell on her way to the bathroom. He could not get her up so he called EMS. She denies feeling lightheaded or dizzy. She is unaware of why she fell. In review of the ER notes , she had reported that she was lying in bed and suddenly felt short of breath and felt like her heart was racing. At the time of my interview, she has no complaints of chest pain, palpitations, shortness of breath, or nausea and vomiting. In the ER she received a total of 25 mg of IV diltiazem and is currently on a diltiazem drip (10 mg per hour) for atrial fibrillation with RVR. Her chest x-ray was negative. Her CBC was essentially normal. Sodium slightly elevated at 146. Creatinine 1.1. Creatinine kinase is elevated at 312. Troponin negative. TSH normal. Urinalysis was essentially negative. D-dimer is slightly elevated. Patient denies any history of heart issues beyond hypertension and hyperlipidemia. She does follow with Dr. Vides for normal pressure hydrocephalus. She and her live independently in a duplex on the [facility] in [place]. Based on the interaction during my interview, suspicion memory/ cognition deficits in both the patient and her . The majority of information gleaned from Dr. Arora's recent office notes and ER chart. Review of Systems Comprehensive ROS: completed and no additional positive findings except those as stated Review of systems: Negative review of symptoms except for slight complaint of left Hand pain from her fall this morning. She also has a bruise under her right eye and some bruising to the right lower leg which is slightly tender. Her reports she has some forgetfulness. Will frequently ask what day it is. PFSH Essential hypertension Hyperlipidemia Normal pressure hydrocephalus Depression Osteoarthritis Recurrent cystitis benign essential tremor Allergic rhinitis Surgical History: Appendectomy, tonsillectomy, cataract extraction, SUPERINTENDENT METER TESTS shunt- 2001, open reduction with internal fixation of left humerus-2010, perineal tear repair, colonoscopy-2001 Family History: Father-heart disease Mother-heart disease, depression - Social History Smoking status: Never smoker Substance use type: does not use Alcohol intake frequency: does not drink Household members: spouse Current occupational status: retired Current residence: Apartment/Private Home (lives in a [facility] on the [facility] in [place]) Social history: PCP-Dr. Pankaj Arora Neurologist-Dr. Maxx Vides Medications Home Medications Medication Instructions Recorded Confirmed Type Atenolol 100 mg PO DAILY #0 08/30/11 06/04/17 History hydroCHLOROthiazide 12.5 mg PO DAILY #0 08/30/11 06/04/17 History [Hydrochlorothiazide] Losartan Potassium 50 mg PO HS #0 01/28/16 06/04/17 History Amlodipine Besylate 5 mg PO DAILY #0 11/09/16 06/04/17 History [place]-3 Fatty Acids/Fish Oil [Fish 1,000 mg PO DAILY #0 11/09/16 06/04/17 History Oil 1,000 mg Capsule] Allergies Allergy/AdvReac Type Severity Reaction Status Date / Time No Known Allergies Allergy Unverified 11/09/16 17:15 Exam Vital Signs: Temperature 97.0 F 06/04/17 08:12 Pulse Rate 133 H 06/04/17 10:15 Respiratory Rate 13 06/04/17 10:15 Blood Pressure 118/58 06/04/17 08:27 Pulse Oximetry 96 06/04/17 10:15 - Constitutional Present: no acute distress, well nourished, well developed - Routine HEENT Exam Head: Present: normocephalic, atraumatic Eye: Present: EOMI, PERRL, periorbital ecchymosis (resolving bruising below right eye) ENT: Present: mucous membranes moist, dentition normal Comments: Ptosis bilaterally. Bony torus to upper palate. - Routine Neck Exam Present: supple, full ROM - Routine Respiratory Exam Present: CTA bilaterally. Absent: wheezes, crackles - Routine Cardiovascular Exam Present: tachycardia, irregularly irregular. Absent: murmur - Routine Abdominal Exam Present: soft, normoactive bowel sounds, non distended. Absent: tenderness - Routine Extremities Exam Present: no edema, normal capillary refill - Routine Back/Spine/Pelvis Exam Back/Spine: Absent: CVA tenderness - Routine Skin Exam Present: dry, warm, ecchymosis (below the right eye and right lower leg) - Routine Neurological Exam Present: alert, moving all extremities, hearing grossly intact. Absent: oriented X3 (she is alert and oriented to herself and place. She states today is Wednesday (it is Wednesday). She states her method of arrival to the emergency room was her ; however, she was brought by EMS.), pronator drift, facial asymmetry, normal speech (her speech is slow and she is somewhat slow to respond , but there is no slurring of speech) - Routine Psychiatric Exam Present: normal affect, cooperative Results - Labs CBC & Chem 7: 06/04/17 08:27 06/04/17 08:27 Labs: Laboratory Tests 06/04/17 08:27 INR 1.06 APTT 26.3 D-Dimer 336 H Laboratory Tests 06/04/17 08:27 Creatine Kinase 312 H Troponin I 0.054 Laboratory Tests 06/04/17 09:10 Ur Collection Type Urine, clean catch Urine Color Yellow Urine Clarity Clear Urine pH 5.5 Ur Specific [place] 1.015 Urine Protein Trace A Urine Glucose (UA) Negative Urine Ketones Negative Urine Occult Blood Negative Urine Nitrate Negative Urine Bilirubin Negative Urine Urobilinogen 0.2 Ur Leukocyte Esterase Negative - ECG Data Tracing #1 Arrhythmias present: afib (rate 162) - Imaging and Cardiology Chest x-ray Additional comments: FINDINGS: The lungs are clear without evidence of focal abnormal airspace opacity. There is no pleural effusion or pneumothorax. The heart size, mediastinal contours and pulmonary vascularity are within normal limits. Left humeral hardware. IMPRESSION: No acute cardiopulmonary disease. Assessment and Plan DVT Prophylaxis: SCD's, Eliquis Resuscitation Status: Full Code Assessment and Plan: Assessment New onset atrial fibrillation with RVR Essential hypertension Hyperlipidemia Normal pressure hydrocephalus - SUPERINTENDENT METER TESTS shunt (Dr. Vides) Benign essential tremor Osteo-arthritis Depression Recurrent cystitis Allergic rhinitis Plan Patient admitted to the CCU for new onset atrial fibrillation with RVR under the hospitalist service, Dr. Vazquez attending. Dr. Hudson has been consulted. Start Eliquis for anticoagulation. Also SCDs for DVT prevention. Continue Cardizem drip. Dr. Hudson to give certified rehabilitation counselor regarding cardiac meds. Serial troponins every 6 hours 3. EKG if there is a rhythm change. Check magnesium for laboratory completeness. Echocardiogram for further evaluation of cardiac structure/function Continue home medications for chronic health problems. Patient request full CODE STATUS. This order is written Discussed patient's case and further plan of care with Dr. Vazquez. Patient's care to be returned to Dr. Pankaj Arora upon discharge. Hospital Course Summary Disclaimer: The visit summary below is not to be considered part of the above Progress Note. Hospital Course: New onset atrial fibrillation with RVR Essential hypertension Hyperlipidemia Normal pressure hydrocephalus - SUPERINTENDENT METER TESTS shunt (Dr. Vides) Benign essential tremor Osteo-arthritis Depression Recurrent cystitis Allergic rhinitis 06/04/17 - CCU admission Patient admitted to the CCU for new onset atrial fibrillation with RVR under the hospitalist service, Dr. Vazquez attending. Dr. Hudson has been consulted. Start Eliquis for anticoagulation. Also SCDs for DVT prevention. Continue Cardizem drip. Dr. Hudson to give certified rehabilitation counselor regarding cardiac meds. Serial troponins every 6 hours 3. EKG if there is a rhythm change. Check magnesium for laboratory completeness. Echocardiogram for further evaluation of cardiac structure/function Continue home medications for chronic health problems. Patient request full CODE STATUS. This order is written Patient's care to be returned to Dr. Pankaj Arora upon discharge. <Zaina Vazquez - Last Filed: 06/04/17 15:06> History of Present Illness Date: 06/04/17 [facility] Patient Stated Medical History Hypertension Yes Hx Renal Disease No Depression Yes Exam Vital Signs: Temperature 97.0 F 06/04/17 08:12 Pulse Rate 125 H 06/04/17 13:20 Respiratory Rate 13 06/04/17 10:15 Blood Pressure 118/58 06/04/17 08:27 Pulse Oximetry 96 06/04/17 10:15 Results - Labs CBC & Chem 7: 06/04/17 08:27 06/04/17 08:27 Assessment and Plan Assessment and Plan: I have independently evaluated and examined this patient. I reviewed the chart, the patient's history, and the NET DEVEL[employer]/PA's documented findings as above. We discussed and formulated the assessment and plan as above with additions as below. Events reviewed. The patient reports she gets a yearly flu vaccine, she is not sure about her pneumococcal vaccine or Tdap. Nursing will follow up with Dr. De León's office with this. In general, the patient is pleasnt but a poor historian, cooperative with exam, and in no respiratory distress. HEENT: Head is normocephalic, right periorbital ecchymosis, no conjunctival petechiae, no oral thrush, mucous membranes are moist and pink. Lungs: Clear to auscultation without wheezes, crackles or rhonchi CV: Tachycardic Abdomen: Soft, nontender, bowel sounds are present, there is no guarding no rebound. Extremities: No clubbing, no cyanosis, no edema. Skin: Warm and dry no sign of rash Neuro: Patient is alert but not oriented With her history of falls and normal pressure hydrocephalus will check a CT scan of the head without contrast Appreciate Dr. Najera's help with her new onset atrial fibrillation with rapid ventricular response. Hospital Course Summary Disclaimer: The visit summary below is not to be considered part of the above Progress Note.
[2017-06-04] MEDS ORDERED: METOPROLOL 5mg/5ml INJECTION IVP STA (11:41)
--- NOTE | 2017-06-04 12:29 | Cardiology Consult Note ---
History of Present Illness Consult date: 06/04/17 <Monika Martinez 06/04/17 12:55> Requesting physician: Zaina Vazquez <Monika Martinez 06/04/17 12:55> Consult reason: atrial fibrillation <Monika Martinez 06/04/17 12:55> Chief complaint: palpitations <Monika Martinez 06/04/17 12:55> History of present illness: Mrs. Salguero is an 87-year-old female patient of Dr. Pankaj Arora who presented to the ED via EMS from her home with complaints of SOA and racing heartbeat which began this morning in bed. Her reports when she woke up this morning, she fell on her way to the bathroom. He could not get her up so he called EMS. She denied feeling lightheaded or dizzy. She is unaware of why she fell. In the ER she received a total of 25 mg of IV diltiazem and is currently on a diltiazem drip (10 mg per hour) for atrial fibrillation with RVR. Her chest x-ray was negative. Her CBC was essentially normal. Sodium slightly elevated at 146. Creatinine 1.1. Creatinine kinase is elevated at 312. Troponin negative. TSH normal. She denies any history of heart issues beyond hypertension and hyperlipidemia. She does follow with Dr. Vides for normal pressure hydrocephalus. She and her live independently in a duplex on the [facility] in [place]. She is examined in the ED by Dr. Hudson. She is a poor historian of her own health history. She is unable to say if she has been in the care of a shift commander and her is unsure as well. She denies chest pain or pressure, denies breathing difficulty, passing out or lightheadedness, denies N/ V. <Monika Martinez 06/04/17 12:55> Review of Systems - Constitutional Constitutional: Absent: chills, fever(s) <Monika Martinez 06/04/17 12:55> - EENMT Eyes: Absent: change in vision <Monika Martinez 06/04/17 12:55> Balance: Absent: vertigo <JuanMonika Law 06/04/17 12:55> Mouth/Throat: Absent: sore throat <Monika Martinez 06/04/17 12:55> - Cardiovascular Cardiovascular: Absent: chest pain, palpitations, syncope, dyspnea on exertion, heart murmur <Monika Martinez 06/04/17 12:55> - Respiratory Respiratory: Absent: cough, dyspnea <Monika Martinez 06/04/17 12:55> - Gastrointestinal Gastrointestinal: Absent: diarrhea, nausea, vomiting <Monika Martinez 12:55> - Genitourinary Genitourinary: Absent: dysuria <Monika Martinez 06/04/17 12:55> - Integumentary/Breasts Integumentary: Absent: rash <Monika Martinez 06/04/17 12:55> - Neurological Neurological: Absent: dizziness <Monika Martinez 06/04/17 12:55> - Endocrine Endocrine: Absent: palpitations <Monika Martinez 06/04/17 12:55> [facility] Patient Stated Medical History Hypertension Yes Hx Renal Disease No Depression Yes <Nilson Hudson - 06/07/17 13:12> Essential hypertension Hyperlipidemia Normal pressure hydrocephalus Depression Osteoarthritis Recurrent cystitis benign essential tremor Allergic rhinitis <Monika Martinez 06/04/17 12:55> Surgical History: Appendectomy, tonsillectomy, cataract extraction, FAMILY INDEPENDENCE CASE MANAGER shunt- 2001, open reduction with internal fixation of left humerus-2010, perineal tear repair, colonoscopy-2001 <Monika Martinez 06/04/17 12:55> Family History: Father-heart disease Mother-heart disease, depression <Monika Martinez 06/04/17 12:55> - Social History Smoking status: Never smoker <Monika Martinez 06/04/17 12:55> Substance use type: does not use <Monika Martinez 06/04/17 12:55> Alcohol intake frequency: does not drink <Monika Martinez 06/04/17 12:55> Housing: apartment <Monika Martinez 06/04/17 12:55> Household members: spouse <Monika Martinez 06/04/17 12:55> Current occupational status: retired <Monika Martinez - 06/04/17 12:55> Current residence: Apartment/Private Home <Monika Martinez - 06/04/17 12:55> Medications Home Medications Medication Instructions Recorded Confirmed Type Atenolol 100 mg PO DAILY #0 08/30/11 06/04/17 History hydroCHLOROthiazide 12.5 mg PO DAILY #0 08/30/11 06/04/17 History [Hydrochlorothiazide] Losartan Potassium 50 mg PO HS #0 01/28/16 06/04/17 History Amlodipine Besylate 5 mg PO DAILY #0 11/09/16 06/04/17 History [place]-3 Fatty Acids/Fish Oil [Fish 1,000 mg PO DAILY #0 11/09/16 06/04/17 History Oil 1,000 mg Capsule] <Nilson Hudson - 06/07/17 13:12> Allergies Allergy/AdvReac Type Severity Reaction Status Date / Time No Known Allergies Allergy Unverified 11/09/16 17:15 <Nilson Hudson - 06/07/17 13:12> Exam Vital signs: Temperature 95.2 F L 06/07/17 11:00 Pulse Rate 108 H 06/07/17 11:00 Respiratory Rate 20 06/07/17 11:00 Blood Pressure 126/68 06/07/17 11:00 Pulse Oximetry 96 06/07/17 11:00 <Nilson Hudson - 06/07/17 13:12> Temperature 97.0 F 06/04/17 08:12 Pulse Rate 133 H 06/04/17 10:15 Respiratory Rate 13 06/04/17 10:15 Blood Pressure 118/58 06/04/17 08:27 Pulse Oximetry 96 06/04/17 10:15 <Monika Martinez - 06/04/17 12:55> - Constitutional mild distress, well developed, cooperative <Monika Martinez - 06/04/17 12:55> - Routine HEENT Exam Head: Present: normocephalic <Monika Martinez - 06/04/17 12:55> ENT: Present: mucous membranes dry <Monika Martinez - 06/04/17 12:55> - Routine Neck Exam Absent: JVD, carotid bruit <Monika Martinez - 06/04/17 12:55> - Routine Chest/Breast/Axilla Exam Chest wall: Absent: tenderness <Monika Martinez - 06/04/17 12:55> - Routine Respiratory Exam Present: CTA bilaterally. Absent: rales, wheezes <Monika Martinez - 06/04/17 12:55> - Routine Cardiovascular Exam Present: tachycardia, irregularly irregular <Monika Martinez - 06/04/17 12:55> - Routine Abdominal Exam Present: soft, normoactive bowel sounds <Monika Martinez - 06/04/17 12:55> - Routine Skin Exam Present: intact, dry, warm <Monika Martinez - 06/04/17 12:55> - Routine Neurological Exam Present: alert. Absent: oriented X3, normal speech (slow) <Monika Martinez - 06/04/17 12:55> - Routine Psychiatric Exam Present: normal affect, cooperative <Monika Martinez 06/04/17 12:55> Results 06/07/17 12:17 06/07/17 12:17 <Nilson Hudson - 06/07/17 13:12> CBC 06/07/17 Range/Units 12:17 WBC 7.5 (4.5-11.0) T/MM3 RBC 3.89 L (4.00-5.20) M/MM3 Hgb 11.8 L (12-16) GM/DL Hct 35.3 L (36-46) % Plt Count 179 (130-400) T/MM3 Comprehensive Metabolic Panel 06/07/17 Range/Units 12:17 Sodium 144 (134-144) MEQ/L Potassium 4.3 D (3.6-5) MEQ/L Chloride 109 H (98-107) MEQ/L Carbon Dioxide 27 (22-30) MEQ/L BUN 31.0 H (7-17) MG/DL Creatinine 1.1 (0.7-1.2) MG/DL Glucose 86 (65-110) MG/DL Calcium 8.9 (8.4-10.2) MG/DL Intake and Output 06/06/17 06/07/17 06/07/17 22:59 06:59 14:59 Intake Total 180 / 180 50 / 50 240 / 240 Output Total 100 / 100 300 / 300 Balance 80 / 80 -250 / -250 240 / 240 Intake: Oral 180 / 180 50 / 50 240 / 240 Output: Urine 100 / 100 300 / 300 Other: Urine Appearance Clear Urine Color Yellow Weight 71.1 kg 71.1 kg Patient Weight 06/08/17 06:59 Weight 71.1 kg <Nilson Hudson - 06/07/17 13:12> Intake and Output 06/03/17 06/04/17 06/04/17 22:59 06:59 14:59 Intake Total 33.667 / 1035.167 Balance 33.667 / 1035.167 Intake: IV 33.667 / 35.167 Cardizem IV 125 mg In 33 / 35.167 Normal Saline 100 ml @ 5 mls/hr IV PRN [facility] Rx#: [id number] Laboratory Results - last 24 hr 06/04/17 06/04/17 06/04/17 08:27 08:27 08:27 WBC 9.0 RBC 4.18 Hgb 13.1 Hct 37.4 MCV 89.5 MCH 31.3 MCHC 35.0 RDW Std Deviation 44.5 Plt Count 164 MPV 8.7 L Immature Gran % (Auto) 0.2 Neut % (Auto) 79.5 H Lymph % (Auto) 11.3 L Camp % (Auto) 7.6 Eos % (Auto) 1.1 Baso % (Auto) 0.3 Neut # 7.1 Lymph # 1.0 Camp # 0.7 Eos # 0.1 Baso # 0.0 Abs Immat Gran (auto) 0.02 INR 1.06 APTT 26.3 D-Dimer 336 H Turbidity < 20 Sodium 146 H Potassium 3.7 Chloride 115 H Carbon Dioxide 20 L Anion Gap 11 BUN 25.0 H Creatinine 1.1 GFR Calculation 47 BUN/Creatinine Ratio 23 Glucose 110 Calculated Osmolality 286 H Calcium 8.7 Magnesium Total Bilirubin 1.00 Icterus Index < 2 AST 29 ALT 38 Alkaline Phosphatase 61 Creatine Kinase 312 H Troponin I 0.054 Total Protein 6.1 L Albumin 3.9 Globulin 2.2 L Albumin/Globulin Ratio 1.8 TSH 4.43 Specimen Hemolysis < 15 Ur Collection Type Urine Color Urine Clarity Urine pH Ur Specific [place] Urine Protein Urine Glucose (UA) Urine Ketones Urine Occult Blood Urine Nitrate Urine Bilirubin Urine Urobilinogen Ur Leukocyte Esterase Urinalysis Comment 06/04/17 06/04/17 08:27 09:10 WBC RBC Hgb Hct MCV MCH MCHC RDW Std Deviation Plt Count MPV Immature Gran % (Auto) Neut % (Auto) Lymph % (Auto) Camp % (Auto) Eos % (Auto) Baso % (Auto) Neut # Lymph # Camp # Eos # Baso # Abs Immat Gran (auto) INR APTT D-Dimer Turbidity Sodium Potassium Chloride Carbon Dioxide Anion Gap BUN Creatinine GFR Calculation BUN/Creatinine Ratio Glucose Calculated Osmolality Calcium Magnesium 2.2 Total Bilirubin Icterus Index AST ALT Alkaline Phosphatase Creatine Kinase Troponin I Total Protein Albumin Globulin Albumin/Globulin Ratio TSH Specimen Hemolysis Ur Collection Type Urine, clean catch Urine Color Yellow Urine Clarity Clear Urine pH 5.5 Ur Specific [place] 1.015 Urine Protein Trace A Urine Glucose (UA) Negative Urine Ketones Negative Urine Occult Blood Negative Urine Nitrate Negative Urine Bilirubin Negative Urine Urobilinogen 0.2 Ur Leukocyte Esterase Negative Urinalysis Comment Microscopic not ind. <Monika Martinez - 06/04/17 12:55> - Imaging and Cardiology Echo: pending <Monika Martinez - 06/04/17 12:55> EKG results: image reviewed <Monika Martinez - 06/04/17 12:55> Imaging & Cardiology Narrative: Date of Exam: 06/04/17 Ordering Provider: Sanju Ladd MD Type of Exam(s): XR chest 2V Reason for Exam(s): tachy INDICATION: tachy PROCEDURE: CHEST 2-VIEWS UPRIGHT (PA & LAT) Encounter: Initial COMPARISON: January 28, 2016 FINDINGS: The lungs are clear without evidence of focal abnormal airspace opacity. There is no pleural effusion or pneumothorax. The heart size, mediastinal contours and pulmonary vascularity are within normal limits. Left humeral hardware. IMPRESSION: No acute cardiopulmonary disease. 06/04/17 12:39 <Monika Martinez - 06/04/17 12:55> EKG interpretations - EKG EKG shows: atrial fibrillation (With RVR, HR 150, ST depression) <Monika Martinez - 06/04/17 12:55> Assessment and Plan (1) Atrial fibrillation with RVR Current visit: Yes Status: Acute (2) Essential (primary) hypertension Current visit: Yes Status: Acute (3) Mixed hyperlipidemia Current visit: Yes Status: Acute <Nilson Hudson - 06/07/17 13:12> (1) Atrial fibrillation with RVR Current visit: Yes Status: Acute CCU for Cardizem drip, titrate for HR >100. Currently on 15mg/hr after 25mg IV bolus given in ED. Metoprolol 5mg IV now and 5mg given in ED. Rate remains 120- 130s. Give Digoxin 250mcg IV X1 now and 250mcg IV in 6H Plan to change to oral Cardizem for rate control and oral anticoagulation with Eliquis if tolerated, watch Hgb. (2) Essential (primary) hypertension Current visit: Yes Status: Acute continue home Amlodipine, Losartan, Atenolol and HCTZ (3) Mixed hyperlipidemia Current visit: Yes Status: Acute <Monika Martinez - 06/07/17 11:47> - Attestation Attestation Narrative: 06/07/17 13:12 Recommendation After examining the patient I agree with the above assessment. I am involved in the formulation of the patient's plan of care. <Nilson Hudson - 06/07/17 13:12> Hospital Course Summary Disclaimer: The visit summary below is not to be considered part of the above Progress Note. <Nilson Hudson - 06/07/17 13:12> The visit summary below is not to be considered part of the above Progress Note. <Monika Martinez - 06/04/17 12:55> Hospital Course: New onset atrial fibrillation with RVR Essential hypertension Hyperlipidemia Normal pressure hydrocephalus - FAMILY INDEPENDENCE CASE MANAGER shunt (Dr. Vides) Benign essential tremor Osteo-arthritis Depression Recurrent cystitis Allergic rhinitis 06/04/17 - CCU admission Patient admitted to the CCU for new onset atrial fibrillation with RVR under the hospitalist service, Dr. Vazquez attending. Dr. Hudson has been consulted. Start Eliquis for anticoagulation. Also SCDs for DVT prevention. Continue Cardizem drip. Dr. Hudson to give certified travel counselor regarding cardiac meds. Serial troponins every 6 hours 3. EKG if there is a rhythm change. Check magnesium for laboratory completeness. Echocardiogram for further evaluation of cardiac structure/function Continue home medications for chronic health problems. Patient request full CODE STATUS. This order is written Patient's care to be returned to Dr. Pankaj Arora upon discharge. <Monika Martinez - 06/04/17 12:55>
[2017-06-04] MEDS ORDERED: DIGOXIN 500 MCG/2 ML INJECTION IVP ONE ×2 (13:01→19:00)
[2017-06-04] MEDS: DIGOXIN 500 MCG/2 ML INJECTION IVP ONE ×2 (13:25→14:29)
[2017-06-04] MEDS: APIXABAN 5 MG TABLET PO SCH ×2 (13:48→20:52)
[2017-06-04] MEDS: AMLODIPINE 5 MG TABLET PO SCH (14:31)
[2017-06-04] MEDS: ATENOLOL 100 MG TABLET PO SCH (14:32)
--- NOTE | 2017-06-04 16:19 | CT Scan Report ---
Indication: falls, NPH PROCEDURE: CT head/brain wo con: Encounter: Initial Comparison: November 28, 2015 Technique: Axial CT images through the head were performed without contrast. Iterative Reconstruction dose reducing technique was utilized. FINDINGS: Right parietal ventriculostomy catheter is stable in appearance. Chronic left frontal subdural collection is redemonstrated. The ventricles are unchanged. There are scattered areas of low attenuation in the white matter which most likely represent changes from chronic microvascular ischemia. The brainstem, cerebellum, and cerebral hemispheres otherwise have a normal morphology and CT attenuation. There is no evidence of midline displacement. No hemorrhage, signs of acute territorial stroke, mass effect, mass lesions, or edema is evident. The visualized portions of the skull base, midface, and calvarium demonstrate no abnormality. The paranasal sinuses are well aerated and free of significant disease. The tympanic and mastoid cavities appear normal. IMPRESSION: No acute intracranial abnormality or hemorrhage. Stable head CT. .
[2017-06-04] MEDS: LOSARTAN 50 MG TABLET PO SCH (20:52)
[2017-06-05] MEDS ORDERED: NS FLUSH BAG 500ml IV PRN (00:12)
[2017-06-05] MEDS: SALINE FLUSH 10ml SYRINGE IVF PRN ×3 (06:45→20:54)
[2017-06-05] MEDS: APIXABAN 5 MG TABLET PO SCH ×2 (10:28→20:54)
[2017-06-05] MEDS: AMLODIPINE 5 MG TABLET PO SCH (10:28)
[2017-06-05] MEDS: ATENOLOL 100 MG TABLET PO SCH (10:29)
--- NOTE | 2017-06-05 13:46 | Progress Note ---
Subjective: PT is currently in bed, had breakfast and is feeling fine. HR still irregular but pt has no tachycardia. Denies any CP/SOB, still on IV cardizem. Objective Vital signs: Temperature 98.1 F 06/05/17 08:00 Pulse Rate 79 06/05/17 11:00 Respiratory Rate 20 06/05/17 11:00 Blood Pressure 143/67 H 06/05/17 11:00 Pulse Oximetry 97 06/05/17 11:00 Rhythm: Atrial Fibrillation with Normal Ventricular Rate Height/Weight/BMI: Weight 69.5 kg - Constitutional Present: no acute distress, well nourished, well developed - Routine HEENT Exam Head: Present: normocephalic, atraumatic - Routine Respiratory Exam Present: CTA bilaterally - Routine Cardiovascular Exam Present: irregularly irregular - Routine Abdominal Exam Present: soft, non distended, non tender - Routine Extremities Exam Present: edema. Absent: cyanosis, clubbing - Routine Skin Exam Present: intact - Routine Neurological Exam Present: alert, oriented X3, CN II-XII intact - Routine Psychiatric Exam Present: normal affect, good insight, good judgment Results - Labs CBC & Chem 7: 06/05/17 04:54 06/05/17 04:54 Assessment and Plan Assessment and Plan: Summary: This is an 87 YO female that came with A fib and RVR and was placed in the ICU for Cardizem drip. She is being followed by Cardiology. She has not had any CT, her BNP was high probably due to her A fib. Pt has H.O NPH and a CT brain was done on admission due to falls, this did not show any ICH or bleed or CVA or mass. Diagnosis 1) New onset atrial fibrillation with rapid ventricular response on admission; now controlled. - TnI x 3 negative. - D-Dimer was a bit elevated on admission. Creatinine is 1.1 (Est CrCl = 38) - Check chest CTA (Pt is on Eliquis) to clarify if a PE may have precipitated A fib. 2) Essential hypertension - BP controlled - On Norvasc + BB + IV Cardizem. 3) Normal pressure hydrocephalus - S/P WHEY DEPARTMENT OPERATOR shunt (Dr. Vides) 4) Benign essential tremor - BB may help this tremmor improve. If not consider changing to propranolol ? 5) Osteo-arthritis 6) Depression - TSH a bit high per some guidelines this would be considered abnormal - Reccommend recheck in 10 weeks or so. Prevention PUD - Omeprazole DVT - On Eliquis - Time spent with patient 25 - 35 minutes Sepsis Assessment - Evaluation Sepsis screening result: No Definite Risk Hospital Course Summary Disclaimer: The visit summary below is not to be considered part of the above Progress Note. Hospital Course: New onset atrial fibrillation with RVR Essential hypertension Hyperlipidemia Normal pressure hydrocephalus - WHEY DEPARTMENT OPERATOR shunt (Dr. Vides) Benign essential tremor Osteo-arthritis Depression Recurrent cystitis Allergic rhinitis 06/04/17 - CCU admission Patient admitted to the CCU for new onset atrial fibrillation with RVR under the hospitalist service, Dr. Vazquez attending. Dr. Hudson has been consulted. Start Eliquis for anticoagulation. Also SCDs for DVT prevention. Continue Lam wildeip. Dr. Hudson to give certified rehabilitation counselor regarding cardiac meds. Serial troponins every 6 hours 3. EKG if there is a rhythm change. Check magnesium for laboratory completeness. Echocardiogram for further evaluation of cardiac structure/function Continue home medications for chronic health problems. Patient request full CODE STATUS. This order is written Patient's care to be returned to Dr. Pankaj Arora upon discharge.
[2017-06-05] MEDS ORDERED: SALINE FLUSH 10ml SYRINGE ONE (14:19)
[2017-06-05] MEDS ORDERED: IOHEXOL 350mg/ml 75ml INJECTION ONE (14:20)
[2017-06-05] MEDS ORDERED: NS 100 ML ONE (14:21)
[2017-06-05] MEDS ORDERED: IOHEXOL 350mg/ml 50ml INJECTION ONE (14:48)
[2017-06-05] MEDS: OMEPRAZOLE 20 MG CAPSULE PO SCH ×2 (17:04)
[2017-06-05] MEDS: LOSARTAN 50 MG TABLET PO SCH (20:53)
[2017-06-06] MEDS: SALINE FLUSH 10ml SYRINGE IVF PRN ×2 (04:43→18:38)
[2017-06-06] MEDS: OMEPRAZOLE 20 MG CAPSULE PO SCH ×2 (06:08→18:38)
[2017-06-06] MEDS: ATENOLOL 100 MG TABLET PO SCH (08:54)
[2017-06-06] MEDS: AMLODIPINE 5 MG TABLET PO SCH (08:54)
[2017-06-06] MEDS: APIXABAN 5 MG TABLET PO SCH ×2 (08:55→20:31)
--- NOTE | 2017-06-06 09:03 | Progress Note ---
Subjective: Pt states she has been doing well. Denies any CP or palpitations, no SOB. HR ranged from 90 to 130's last night. PO cardizem increased. IV cardizem stopped. Objective Vital signs: Temperature 97.8 F 06/06/17 04:00 Pulse Rate 117 H 06/06/17 06:00 Respiratory Rate 34 H 06/06/17 06:00 Blood Pressure 145/83 H 06/06/17 06:00 Pulse Oximetry 97 06/06/17 06:00 Rhythm: Atrial Fibrillation with Normal Ventricular Rate Height/Weight/BMI: Weight 69.5 kg - Constitutional Present: no acute distress, well nourished - Routine HEENT Exam Head: Present: normocephalic, atraumatic Eye: Present: EOMI, PERRL - Routine Respiratory Exam Present: CTA bilaterally - Routine Cardiovascular Exam Present: irregularly irregular - Routine Abdominal Exam Present: soft, non distended, non tender - Routine Extremities Exam Absent: cyanosis, clubbing, edema - Routine Neurological Exam Present: alert, oriented X3 - Routine Psychiatric Exam Present: normal affect, good insight, good judgment Results - Labs CBC & Chem 7: 06/05/17 04:54 06/05/17 04:54 Assessment and Plan Assessment and Plan: Summary: This is an 87 YO female that came with A fib and RVR and was placed in the ICU for Cardizem drip. She is being followed by Cardiology. She has not had any [place], her BNP was high probably due to her A fib. Pt has H.O NPH and a CT brain was done on admission due to falls, this did not show any ICH or bleed or CVA or mass. On 06/05 CTA did not show any evidence of a PE. Pt rate was better and Cardizem (IV) was stopped. Diagnosis 1) New onset atrial fibrillation with rapid ventricular response on admission; now controlled on PO cardizem/ PO BB - TnI x 3 negative. - D-Dimer was a bit elevated on admission; CTA was negative for PE. - Continue on Eliquis. 2) Essential hypertension - BP controlled - On Norvasc + BB + PO Cardizem. 3) Normal pressure hydrocephalus - S/P INSULATION ESTIMATOR shunt (Dr. Vides) 4) Benign essential tremor 5) Osteo-arthritis 6) Depression - TSH a bit high per some guidelines this would be considered abnormal - Reccommend recheck in 10 weeks or so. Prevention PUD - Omeprazole DVT - On Eliquis Sepsis Assessment - Evaluation Sepsis screening result: No Definite Risk Hospital Course Summary Disclaimer: The visit summary below is not to be considered part of the above Progress Note. Hospital Course: New onset atrial fibrillation with RVR Essential hypertension Hyperlipidemia Normal pressure hydrocephalus - INSULATION ESTIMATOR shunt (Dr. Vides) Benign essential tremor Osteo-arthritis Depression Recurrent cystitis Allergic rhinitis 06/04/17 - CCU admission Patient admitted to the CCU for new onset atrial fibrillation with RVR under the hospitalist service, Dr. Vazquez attending. Dr. Hudson has been consulted. Start Eliquis for anticoagulation. Also SCDs for DVT prevention. Continue Card[place] wildeip. Dr. Hudson to give drug counselor regarding cardiac meds. Serial troponins every 6 hours 3. EKG if there is a rhythm change. Check magnesium for laboratory completeness. Echocardiogram for further evaluation of cardiac structure/function Continue home medications for chronic health problems. Patient request full CODE STATUS. This order is written Patient's care to be returned to Dr. Pankaj Arora upon discharge.
--- NOTE | 2017-06-06 09:13 | CT Scan Report ---
Indication: Shortness of air, evaluate for PE PROCEDURE: CT angio pulm emboli: Encounter: Initial Comparison: None Technique: Axial CT pulmonary angiographic phase images were performed through the chest after the administration of intravenous contrast. Coronal and Sagittal MIP reconstructed images were created and reviewed. Automated Exposure Control and Iterative Reconstruction dose reducing techniques were utilized. Contrast: Omnipaque 350 75 mL Findings: Pulmonary arteries: Exam is diagnostic to the subsegmental pulmonary arterial level. No filling defects identified to suggest a pulmonary embolus. Other findings: No pneumonia, pleural effusion or pneumothorax. Minimal dependent atelectasis. The central airways are patent. No axillary or mediastinal adenopathy. Heart is mildly enlarged without pericardial effusion. The upper abdomen shows a left renal stone but no acute findings. Duodenal diverticulum. Tiny gallstone. Shunt catheter tubing in the right lateral abdomen. Impression: No pulmonary embolus or acute intrathoracic disease process seen. There is a preliminary report by [facility]. .
[2017-06-06] MEDS: LOSARTAN 50 MG TABLET PO SCH (20:31)
[2017-06-07] MEDS: OMEPRAZOLE 20 MG CAPSULE PO SCH ×2 (06:03→17:20)
[2017-06-07] MEDS: SALINE FLUSH 10ml SYRINGE IVF PRN ×2 (09:00→20:19)
[2017-06-07] MEDS: ATENOLOL 100 MG TABLET PO SCH (09:01)
[2017-06-07] MEDS: APIXABAN 5 MG TABLET PO SCH (09:01)
[2017-06-07] MEDS: AMLODIPINE 5 MG TABLET PO SCH (09:01)
--- NOTE | 2017-06-07 12:27 | Cardiology Progress Note ---
Subjective Principal diagnosis: AFib with RVR <Monika Martinez - 06/07/17 12:32> Interval history: Devyn is seen in follow up for atrial fibrillation with RVR. She is now on the Medical unit, sitting up in the recliner. She oriented to person and place. <JuanMonika friedman 06/07/17 12:32> Exam Vital signs: Temperature 97 F 06/08/17 07:22 Pulse Rate 133 H 06/08/17 08:00 Respiratory Rate 16 06/08/17 07:22 Blood Pressure 140/74 H 06/08/17 07:22 Pulse Oximetry 96 06/08/17 07:22 <TristanNilson - 06/08/17 11:05> Temperature 95.2 F L 06/07/17 11:00 Pulse Rate 108 H 06/07/17 11:00 Respiratory Rate 20 06/07/17 11:00 Blood Pressure 126/68 06/07/17 11:00 Pulse Oximetry 96 06/07/17 11:00 <Monika Martinez Thanh 06/07/17 12:32> - Constitutional no acute distress, well nourished, cooperative <Juan,Monika Law 06/07/17 12: 32> - Routine HEENT Exam Head: Present: normocephalic <JuanMonika nelson Thanh 06/07/17 12:32> ENT: Present: mucous membranes moist <JuanMonika nelson Thanh 06/07/17 12:32> - Routine Neck Exam Absent: JVD, carotid bruit <JuanMonika nelson Thanh 06/07/17 12:32> - Routine Chest/Breast/Axilla Exam Chest wall: Absent: tenderness, pacemaker <JuanMonika nelson Thanh 06/07/17 12:32> - Routine Respiratory Exam Present: CTA bilaterally. Absent: rales, wheezes <Monika Martinez Thanh 06/07/17 12:32> - Routine Cardiovascular Exam Present: no murmur, tachycardia, irregularly irregular <Monika Martinez 06/07 12:32> - Routine Abdominal Exam Present: soft, normoactive bowel sounds <Monika Martinez 06/07/17 12:32> - Routine Extremities Exam Present: no edema <Monika Martinez 06/07/17 12:32> - Routine Skin Exam Present: intact, dry, warm <Monika Martinez 06/07/17 12:32> - Routine Neurological Exam Present: alert, oriented X3 <Monika Martinez 06/07/17 12:32> - Routine Psychiatric Exam Present: normal affect, normal thought process <Monika Martinez 06/07/17 12: 32> Progress Note-A&P (1) Atrial fibrillation with RVR Status: Acute Current Visit: Yes (2) Essential (primary) hypertension Status: Acute Current Visit: Yes (3) Mixed hyperlipidemia Status: Acute Current Visit: Yes <TristanNilson 06/08/17 11:05> (1) Atrial fibrillation with RVR Status: Acute Assessment and plan: Currently taking Cardizem 240mg po daily, has had some pauses as high as 1.9 seconds, - rate suboptimally controlled on this dose. Increase to Cardizem 360mg daily - Hold Eliquis and continue to monitor for pauses. Current Visit: Yes (2) Essential (primary) hypertension Status: Acute Current Visit: Yes (3) Mixed hyperlipidemia Status: Acute Current Visit: Yes <JuanMonika friedman 06/08/17 10:47> - Time Spent With Patient Total time spent is greater than 50% in coordination of care (as documented) at patient's floor/unit and/or counseling patient: <GerriNilson jefferson 06/08/17 11:05> Total time spent is greater than 50% in coordination of care (as documented) at patient's floor/unit and/or counseling patient: <JuanMonika nelson 06/07/17 12:32> less than 15 minutes <Monika Martinez Thanh 06/08/17 10:48> - Attestation Attestation Narrative: Recommendation After examining the patient I agree with the above assessment. I am involved in the formulation of the patient's plan of care. <Nilson Hudson - 06/08/17 11:05> Sepsis Assessment - Evaluation Sepsis screening result: No Definite Risk <JuanMonika nelson 06/07/17 12:32> Hospital Course Summary Disclaimer: The visit summary below is not to be considered part of the above Progress Note. <Nilson Hudson - 06/08/17 11:05> The visit summary below is not to be considered part of the above Progress Note. <oMnika Martinez - 06/07/17 12:32> Hospital Course: New onset atrial fibrillation with RVR Essential hypertension Hyperlipidemia Normal pressure hydrocephalus - FIRE CONTROL ASSISTANT shunt (Dr. Vides) Benign essential tremor Osteo-arthritis Depression Recurrent cystitis Allergic rhinitis 06/04/17 - CCU admission Patient admitted to the CCU for new onset atrial fibrillation with RVR under the hospitalist service, Dr. Vazquez attending. Dr. Hudson has been consulted. Start Eliquis for anticoagulation. Also SCDs for DVT prevention. Continue Cardizem drip. Dr. Hudson to give group therapy counselor regarding cardiac meds. Serial troponins every 6 hours 3. EKG if there is a rhythm change. Check magnesium for laboratory completeness. Echocardiogram for further evaluation of cardiac structure/function Continue home medications for chronic health problems. Patient request full CODE STATUS. This order is written Patient's care to be returned to Dr. Pankaj Arora upon discharge. 06/04/17 Cardiology AFib with RVR: CCU for Cardizem drip, titrate for HR >100. Currently on 15mg/hr after 25mg IV bolus given in ED. Metoprolol 5mg IV now and 5mg given in ED. Rate remains 120-130s. Give Digoxin 250mcg IV X1 now and 250mcg IV in 6H Plan to change to oral Cardizem for rate control and oral anticoagulation with Eliquis if tolerated, watch Hgb. HTN: continue home Amlodipine, Losartan, Atenolol and HCTZ 06/07/17 Cardiology AFib: Currently taking Cardizem 240mg po daily, has had some pauses as high as 1.9 seconds, - rate suboptimally controlled on this dose. Increase to Cardizem 360mg daily - Hold Eliquis and continue to monitor for pauses. <Monika Martinez - 06/08/17 10:48>
--- NOTE | 2017-06-07 14:35 | Echocardiogram ---
DATE OF PROCEDURE June 04, [address] Zaina Vazquez This is a two-dimensional echo with spectral Doppler, color-flow and M-mode. It was obtained in a patient with atrial fibrillation. Left atrial dimension is increased. Left ventricle end-diastolic dimension is normal. Left ventricle wall thickness is increased. LV systolic function is normal with ejection fraction of 65%. Right atrium is dilated. Right ventricle is normal. Aortic root dimension is normal. Mitral valve annulus is calcified. Mitral valve leaflets are normal with [id number] mitral regurgitation. Aortic valve is a trileaflet structure with fibrocalcific changes with no stenosis. Trace of aortic insufficiency is present. Tricuspid valve shows mild tricuspid regurgitation with normal estimated pulmonary artery systolic pressure of 31. Pulmonary valve shows trace of pulmonary insufficiency. There is no pericardial effusion. IMPRESSION 1. Normal LV systolic function with ejection fraction of about 65%. 2. Biatrial dilation. 3. Left ventricular hypertrophy. 4. Mitral annulus calcification with [id number] mitral regurgitation. 5. Aortic sclerosis with trace of aortic insufficiency. 6. Mild tricuspid regurgitation with normal estimated pulmonary artery systolic pressure of 31. 7. Trace of pulmonary insufficiency. MTDD
--- NOTE | 2017-06-07 15:03 | Progress Note ---
Subjective: Pt states she is feeling fine. Requested evaluation for IRU and pt was accepted to go there, once stable Objective Vital signs: Temperature 95.2 F L 06/07/17 11:00 Pulse Rate 108 H 06/07/17 11:00 Respiratory Rate 20 06/07/17 11:00 Blood Pressure 126/68 06/07/17 11:00 Pulse Oximetry 96 06/07/17 11:00 Rhythm: Atrial Fibrillation with Normal Ventricular Rate Height/Weight/BMI: Weight 71.1 kg - Constitutional Present: no acute distress, cachectic - Routine HEENT Exam Head: Present: normocephalic, abrasion Eye: Present: EOMI, PERRL - Routine Cardiovascular Exam Present: irregular rhythm - Routine Abdominal Exam Present: soft, non distended, non tender - Routine Extremities Exam Absent: cyanosis, clubbing, edema - Routine Neurological Exam Present: alert Poor memmory - sugestive of advanced dementia - Routine Lymphatic Exam Lymphatic: Absent: adenopathy - Routine Psychiatric Exam Present: normal affect Results - Labs CBC & Chem 7: 06/07/17 12:17 06/07/17 12:17 Assessment and Plan Assessment and Plan: Summary: This is an 87 YO female that came with A fib and RVR and was placed in the ICU for Cardizem drip. She is being followed by Cardiology. She has not had any [place], her BNP was high probably due to her A fib. Pt has H.O NPH and a CT brain was done on admission due to falls, this did not show any ICH or bleed or CVA or mass. On 06/05 CTA did not show any evidence of a PE. Pt rate was better and Cardizem (IV) was stopped on 06/06 - pt was moved to the medical unit on and her HR has been more stable. Diagnosis 1) New onset atrial fibrillation with rapid ventricular response on admission; now controlled on PO cardizem/ PO BB - TnI x 3 negative. - D-Dimer was a bit elevated on admission; CTA was negative for PE. - Continue on Eliquis. - Transfer to IRU in the AM if HR remains stable (Had still some elevated HR in the 130's earlier today. 2) Essential hypertension - BP controlled - On Norvasc + BB + PO Cardizem. 3) Normal pressure hydrocephalus - S/P SUPERINTENDENT RENTING MANAGING shunt (Dr. Vides) 4) Benign essential tremor 5) Osteo-arthritis 6) Depression - TSH a bit high per some guidelines this would be considered abnormal - Reccommend recheck in 10 weeks or so. Prevention PUD - Omeprazole DVT - On Eliquis - Time spent with patient 25 - 35 minutes Sepsis Assessment - Evaluation Sepsis screening result: No Definite Risk Hospital Course Summary Disclaimer: The visit summary below is not to be considered part of the above Progress Note. Hospital Course: New onset atrial fibrillation with RVR Essential hypertension Hyperlipidemia Normal pressure hydrocephalus - SUPERINTENDENT RENTING MANAGING shunt (Dr. Vides) Benign essential tremor Osteo-arthritis Depression Recurrent cystitis Allergic rhinitis 06/04/17 - CCU admission Patient admitted to the CCU for new onset atrial fibrillation with RVR under the hospitalist service, Dr. Vazquez attending. Dr. Hudson has been consulted. Start Eliquis for anticoagulation. Also SCDs for DVT prevention. Continue Cardizem drip. Dr. Hudson to give group counselor regarding cardiac meds. Serial troponins every 6 hours 3. EKG if there is a rhythm change. Check magnesium for laboratory completeness. Echocardiogram for further evaluation of cardiac structure/function Continue home medications for chronic health problems. Patient request full CODE STATUS. This order is written Patient's care to be returned to Dr. Pankaj Arora upon discharge. 06/04/17 Cardiology AFib with RVR: CCU for Cardizem drip, titrate for HR >100. Currently on 15mg/hr after 25mg IV bolus given in ED. Metoprolol 5mg IV now and 5mg given in ED. Rate remains 120-130s. Give Digoxin 250mcg IV X1 now and 250mcg IV in 6H Plan to change to oral Cardizem for rate control and oral anticoagulation with Eliquis if tolerated, watch Hgb. HTN: continue home Amlodipine, Losartan, Atenolol and HCTZ
[2017-06-07] MEDS ORDERED: DiltiaZEM CD 360 MG CAPSULE PO SCH (17:07)
[2017-06-07] MEDS: LOSARTAN 50 MG TABLET PO SCH (20:18)
[2017-06-08] MEDS: OMEPRAZOLE 20 MG CAPSULE PO SCH (06:17)
[2017-06-08] MEDS: SALINE FLUSH 10ml SYRINGE IVF PRN (09:08)
[2017-06-08] MEDS: ATENOLOL 100 MG TABLET PO SCH (09:09)
[2017-06-08] MEDS: AMLODIPINE 5 MG TABLET PO SCH (09:09)
--- NOTE | 2017-06-08 12:02 | Progress Note ---
Subjective: Patient is seen sitting in a chair in her room. She states she is feeling well. She has no pain. No chest pain or shortness of breath. She is unaware of any rhythm abnormality with her heart. Her appetite is good. She is happy to be here , says everyone has been "very nice." Objective Vital signs: Temperature 97 F 06/08/17 07:22 Pulse Rate 133 H 06/08/17 08:00 Respiratory Rate 16 06/08/17 07:22 Blood Pressure 140/74 H 06/08/17 07:22 Pulse Oximetry 96 06/08/17 07:22 Height/Weight/BMI: Weight 71.7 kg - Constitutional Present: well nourished, well developed - Routine HEENT Exam ENT: Present: mucous membranes moist - Routine Respiratory Exam Present: CTA bilaterally. Absent: wheezes - Routine Cardiovascular Exam Present: irregularly irregular. Absent: murmur - Routine Abdominal Exam Present: soft, normoactive bowel sounds, non distended. Absent: tenderness - Routine Extremities Exam Present: no edema, normal capillary refill - Routine Skin Exam Present: dry, warm - Routine Neurological Exam Present: alert - Routine Lymphatic Exam Lymphatic: Absent: adenopathy - Routine Psychiatric Exam Present: normal affect Results - Labs CBC & Chem 7: 06/07/17 12:17 06/07/17 12:17 Assessment and Plan Assessment and Plan: Summary: This is an 87 YO female that came with A fib and RVR and was placed in the ICU for Cardizem drip. She is being followed by Cardiology. She has not had any [place], her BNP was high probably due to her A fib. Pt has H.O NPH and a CT brain was done on admission due to falls, this did not show any ICH or bleed or CVA or mass. On 06/05 CTA did not show any evidence of a PE. Pt rate was better and Cardizem (IV) was stopped on 06/06 - pt was moved to the medical unit on and her HR has been more stable. Her cardizem was increased to 360mg yesterday. Is having more pauses - may need pacer. Diagnosis 1) New onset atrial fibrillation with rapid ventricular response on admission; now controlled on PO cardizem/ PO BB - TnI x 3 negative. - D-Dimer was a bit elevated on admission; CTA was negative for PE. - Eliquis is on hold per cardiology in the event she is going to need a pacemaker. - Dr. Hudson will see patient later this afternoon 2) Essential hypertension - BP controlled - On Norvasc + BB + PO Cardizem. 3) Normal pressure hydrocephalus - S/P QUAL RESEARCH MANAGER shunt (Dr. Vides) 4) Benign essential tremor 5) Osteo-arthritis 6) Depression - TSH a bit high per some guidelines this would be considered abnormal - Recommend recheck in 10 weeks or so. Prevention PUD - Omeprazole DVT - On Eliquis Sepsis Assessment - Evaluation Sepsis screening result: No Definite Risk Hospital Course Summary Disclaimer: The visit summary below is not to be considered part of the above Progress Note. Hospital Course: New onset atrial fibrillation with RVR Essential hypertension Hyperlipidemia Normal pressure hydrocephalus - QUAL RESEARCH MANAGER shunt (Dr. Vides) Benign essential tremor Osteo-arthritis Depression Recurrent cystitis Allergic rhinitis 06/04/17 - CCU admission Patient admitted to the CCU for new onset atrial fibrillation with RVR under the hospitalist service, Dr. Vazquez attending. Dr. Hudson has been consulted. Start Eliquis for anticoagulation. Also SCDs for DVT prevention. Continue Cardizem drip. Dr. Hudson to give deputy chief counsel regarding cardiac meds. Serial troponins every 6 hours 3. EKG if there is a rhythm change. Check magnesium for laboratory completeness. Echocardiogram for further evaluation of cardiac structure/function Continue home medications for chronic health problems. Patient request full CODE STATUS. This order is written Patient's care to be returned to Dr. Pankaj Arora upon discharge. 06/04/17 Cardiology AFib with RVR: CCU for Cardizem drip, titrate for HR >100. Currently on 15mg/hr after 25mg IV bolus given in ED. Metoprolol 5mg IV now and 5mg given in ED. Rate remains 120-130s. Give Digoxin 250mcg IV X1 now and 250mcg IV in 6H Plan to change to oral Cardizem for rate control and oral anticoagulation with Eliquis if tolerated, watch Hgb. HTN: continue home Amlodipine, Losartan, Atenolol and HCTZ 06/07/17 Cardiology AFib: Currently taking Cardizem 240mg po daily, has had some pauses as high as 1.9 seconds, - rate suboptimally controlled on this dose. Increase to Cardizem 360mg daily - Hold Eliquis and continue to monitor for pauses.
--- NOTE | 2017-06-08 13:50 | Cardiology Progress Note ---
Subjective Principal diagnosis: AFib with RVR <Monika Martinez 06/08/17 13:50> Interval history: Devyn is seen in follow up for atrial fibrillation with RVR. She is sitting up in her room on the Medical unit. She states she's been getting something to "settle my heart". She denies chest pain or pressure, palpitations or dyspnea. <Juan,Amy [facility] 06/08/17 13:50> Exam Vital signs: Temperature 98.1 F 06/08/17 15:21 Pulse Rate 52 L 06/08/17 15:21 Respiratory Rate 18 06/08/17 15:21 Blood Pressure 99/57 06/08/17 15:21 Pulse Oximetry 97 06/08/17 15:21 <Nilson Hudson - 06/15/17 08:07> Temperature 97 F 06/08/17 07:22 Pulse Rate 133 H 06/08/17 08:00 Respiratory Rate 16 06/08/17 07:22 Blood Pressure 140/74 H 06/08/17 07:22 Pulse Oximetry 96 06/08/17 07:22 <JuanMonika 06/08/17 13:50> - Constitutional no acute distress, well nourished, cooperative <JuanMonika nelson [facility] 06/08/17 13: 50> - Routine HEENT Exam Head: Present: normocephalic <JuanMonika 06/08/17 13:50> ENT: Present: mucous membranes moist <JuanMonika nelson [facility] 06/08/17 13:50> - Routine Neck Exam Absent: JVD, carotid bruit <JuanMonika nelson [facility] 06/08/17 13:50> - Routine Chest/Breast/Axilla Exam Chest wall: Absent: tenderness <JuanMonika nelson [facility] 06/08/17 13:50> - Routine Respiratory Exam Present: CTA bilaterally. Absent: rales, wheezes <JuanMonika nelson Thanh 06/08/17 13:50> - Routine Cardiovascular Exam Present: no murmur, irregularly irregular. Absent: JVD <Monika Martinez 09/12 13:50> - Routine Abdominal Exam Present: soft, normoactive bowel sounds <Monika Martinez [facility] 06/08/17 13:50> - Routine Extremities Exam Present: no edema <Monika Martinez 06/08/17 13:50> - Routine Skin Exam Present: intact, dry, warm <Monika Martinez 06/08/17 13:50> - Routine Neurological Exam Present: alert, oriented X3 <Monika Martinez 06/08/17 13:50> - Routine Psychiatric Exam Present: normal affect, normal thought process <Monika Martinez 06/08/17 13: 50> Progress Note-A&P - Time Spent With Patient Total time spent is greater than 50% in coordination of care (as documented) at patient's floor/unit and/or counseling patient: <GerrironnyNilson 06/15/17 08:07> Total time spent is greater than 50% in coordination of care (as documented) at patient's floor/unit and/or counseling patient: <JuanMonika nelson Thanh 06/08/17 13:50> less than 15 minutes <JuanMonika Law 06/08/17 13:50> - Attestation Attestation Narrative: Recommendation After examining the patient I agree with the above assessment. I am involved in the formulation of the patient's plan of care. <Nilson Hudson 06/15/17 08:07> (1) Atrial fibrillation with RVR Status: Acute (2) Essential (primary) hypertension Status: Chronic (3) Mixed hyperlipidemia Status: Acute <GerriNilson jefferson 06/15/17 08:07> (1) Atrial fibrillation with RVR Status: Acute Assessment and plan: Tolerating increased Cardizem 360mg dose well without prolonged bradycardia - Resume Eliquis and continue to monitor telemetry. (2) Essential (primary) hypertension Status: Acute (3) Mixed hyperlipidemia Status: Acute <Monika Martinez 06/10/17 11:45> Sepsis Assessment - Evaluation Sepsis screening result: No Definite Risk <JuanMonika nelson Thanh 06/08/17 13:50> Hospital Course Summary Disclaimer: The visit summary below is not to be considered part of the above Progress Note. <Nilson Hudson 06/15/17 08:07> The visit summary below is not to be considered part of the above Progress Note. <Monika Martinez - 06/08/17 13:50> Hospital Course: New onset atrial fibrillation with RVR Essential hypertension Hyperlipidemia Normal pressure hydrocephalus - HUMAN RESOURCES OPERATIONS SPECIALIST shunt (Dr. Vides) Benign essential tremor Osteo-arthritis Depression Recurrent cystitis Allergic rhinitis 06/04/17 - CCU admission Patient admitted to the CCU for new onset atrial fibrillation with RVR under the hospitalist service, Dr. Vazquez attending. Dr. Hudson has been consulted. Start Eliquis for anticoagulation. Also SCDs for DVT prevention. Continue Cardizem drip. Dr. Hudson to give sexual assault counselor regarding cardiac meds. Serial troponins every 6 hours 3. EKG if there is a rhythm change. Check magnesium for laboratory completeness. Echocardiogram for further evaluation of cardiac structure/function Continue home medications for chronic health problems. Patient request full CODE STATUS. This order is written Patient's care to be returned to Dr. Pankaj Arora upon discharge. 06/04/17 Cardiology AFib with RVR: CCU for Cardizem drip, titrate for HR >100. Currently on 15mg/hr after 25mg IV bolus given in ED. Metoprolol 5mg IV now and 5mg given in ED. Rate remains 120-130s. Give Digoxin 250mcg IV X1 now and 250mcg IV in 6H Plan to change to oral Cardizem for rate control and oral anticoagulation with Eliquis if tolerated, watch Hgb. HTN: continue home Amlodipine, Losartan, Atenolol and HCTZ 06/07/17 Cardiology AFib: Currently taking Cardizem 240mg po daily, has had some pauses as high as 1.9 seconds, - rate suboptimally controlled on this dose. Increase to Cardizem 360mg daily - Hold Eliquis and continue to monitor for pauses. 06/08/17 Cardilogy AFib: Tolerating increased Cardizem 360mg dose well without prolonged bradycardia - Resume Eliquis and continue to monitor telemetry. <Monika Martinez - 06/08/17 13:50>
--- NOTE | 2017-06-08 14:39 | Discharge Instructions ---
Discharge Plan - Med Rec/Dispo Prescriptions: New Apixaban [Eliquis] 5 mg PO BID tablet Omeprazole [Prilosec] 20 mg PO ACBID capsule DiltiaZEM CD [Cardizem Cd] 360 mg PO DAILY capsule Continue Losartan Potassium 50 mg PO HS #0 Amlodipine Besylate 5 mg PO DAILY #0 hydroCHLOROthiazide [Hydrochlorothiazide] 12.5 mg PO DAILY #0 Atenolol 100 mg PO DAILY #0 [place]-3 Fatty Acids/Fish Oil [Fish Oil 1,000 mg Capsule] 1,000 mg PO DAILY #0 Discharge Instructions/Outpatient Orders: Final Provider Discharge Instructions Location: Determined By Patient - Disposition [address] [facility] [facility]
[2017-06-08 15:24] VITALS: BP 99/57; PULSE 52; RESP 18; TEMP 98.1; O2SAT 97
--- NOTE | 2017-06-08 17:27 | Discharge Summary ---
Discharge Information Date of admission: 06/04/17 10:01 Attending Physician: Jean-Claude Marx MD Primary care physician: Pankaj Arora MD Consults: 06/04/17 10:33 Physician Consult [CONS] Routine Consulting Provider: Nilson Hudson Reason For Exam: afib with RVR Ordering Provider has Notified Senior Tax Accountant: Yes 06/07/17 IRU Screening [Inpatient Rehab Screening] [CONS] Routine 06/07/17 14:30 Doctor [Physician Consult] [CONS] Routine Consulting Provider: Leobardo Figueroa Reason For Exam: CONTINUED CARE Ordering Provider has Notified Senior Tax Accountant: Yes - Laboratory Labs: 06/07/17 12:17 06/07/17 12:17 History of Present Illness HPI: Mrs. Salguero is an 87-year-old female patient of Dr. Pankaj Arora. Her reports when she woke up this morning, she fell on her way to the bathroom. He could not get her up so he called EMS. She denies feeling lightheaded or dizzy. She is unaware of why she fell. In review of the ER notes , she had reported that she was lying in bed and suddenly felt short of breath and felt like her heart was racing. At the time of my interview, she has no complaints of chest pain, palpitations, shortness of breath, or nausea and vomiting. In the ER she received a total of 25 mg of IV diltiazem and is currently on a diltiazem drip (10 mg per hour) for atrial fibrillation with RVR. Her chest x-ray was negative. Her CBC was essentially normal. Sodium slightly elevated at 146. Creatinine 1.1. Creatinine kinase is elevated at 312. Troponin negative. TSH normal. Urinalysis was essentially negative. D-dimer is slightly elevated. Patient denies any history of heart issues beyond hypertension and hyperlipidemia. She does follow with Dr. Vides for normal pressure hydrocephalus. She and her live independently in a duplex on the [facility] in [place]. Based on the interaction during my interview, suspicion memory/ cognition deficits in both the patient and her . The majority of information gleaned from Dr. Arora's recent office notes and ER chart. Objective Vital signs: Temperature 98.1 F 06/08/17 15:21 Pulse Rate 52 L 06/08/17 15:21 Respiratory Rate 18 06/08/17 15:21 Blood Pressure 99/57 06/08/17 15:21 Pulse Oximetry 97 06/08/17 15:21 Rhythm: Atrial Fibrillation with Normal Ventricular Rate Height/Weight/BMI: Weight 71.7 kg - Constitutional Present: no acute distress - Routine HEENT Exam Head: Present: normocephalic Eye: Present: EOMI, PERRL Comments: Has a resolving bruise on her R orbit - Routine Respiratory Exam Present: CTA bilaterally - Routine Cardiovascular Exam Present: irregularly irregular - Routine Abdominal Exam Present: soft, non distended, non tender - Routine Extremities Exam Absent: cyanosis, clubbing, edema - Routine Neurological Exam Present: alert, CN II-XII intact - Routine Psychiatric Exam Present: normal affect, good judgment Hospital Course Summary: This is an 87 YO female that came with A fib and RVR and was placed in the ICU for Cardizem drip. She was followed by Cardiology (Dr Hudson et al). She has not had any RI, her BNP was high probably due to her A fib. Pt has H.O NPH and a CT brain was done on admission due to falls, this did not show any ICH or bleed or CVA or mass. On 06/05 CTA did not show any evidence of a PE. Pt rate was better and Cardizem (IV) was stopped on 06/06 - pt was moved to the medical unit on 06/06 and her HR has been more stable. Her Cardizem was increased to 360mg yesterday and he was having pauses but cardiology advised pt will not be needing a pacemaker at present time. Diagnosis 1) New onset atrial fibrillation with rapid ventricular response on admission; now controlled on PO cardizem/ PO BB - TnI x 3 negative. - D-Dimer was a bit elevated on admission; CTA was negative for PE. - D/C on Eliquis 2) Essential hypertension - BP controlled - On Norvasc + BB + PO Cardizem. 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 Vides) 4) Benign essential tremor 5) Osteo-arthritis 6) Depression - TSH a bit high per some guidelines this would be considered abnormal - Recommend recheck in 10 weeks or so. 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 Vides) Benign essential tremor Osteo-arthritis Depression Recurrent cystitis Allergic rhinitis 06/04/17 - CCU admission Patient admitted to the CCU for new onset atrial fibrillation with RVR under the hospitalist service, Dr. Vazquez attending. Dr. Hudson has been consulted. Start Eliquis for anticoagulation. Also SCDs for DVT prevention. Continue Cardizem drip. Dr. Hudson to give auto club travel counselor regarding cardiac meds. Serial troponins every 6 hours 3. EKG if there is a rhythm change. Check magnesium for laboratory completeness. Echocardiogram for further evaluation of cardiac structure/function Continue home medications for chronic health problems. Patient request full CODE STATUS. This order is written Patient's care to be returned to Dr. Pankaj Arora upon discharge. 06/04/17 Cardiology AFib with RVR: CCU for Cardizem drip, titrate for HR >100. Currently on 15mg/hr after 25mg IV bolus given in ED. Metoprolol 5mg IV now and 5mg given in ED. Rate remains 120-130s. Give Digoxin 250mcg IV X1 now and 250mcg IV in 6H Plan to change to oral Cardizem for rate control and oral anticoagulation with Eliquis if tolerated, watch Hgb. HTN: continue home Amlodipine, Losartan, Atenolol and HCTZ 06/07/17 Cardiology AFib: Currently taking Cardizem 240mg po daily, has had some pauses as high as 1.9 seconds, - rate suboptimally controlled on this dose. Increase to Cardizem 360mg daily - Hold Eliquis and continue to monitor for pauses. 06/08/17 Cardilogy AFib: Tolerating increased Cardizem 360mg dose well without prolonged bradycardia - Resume Eliquis and continue to monitor telemetry. Time spent with patient: 25 - 35 minutes DVT Prophylaxis: Eliquis GI Prophylaxis: other Discharge Plan - Med Rec/Dispo Prescriptions: No Action HydroCHLOROthiazide [Microzide] 1 cap PO WB Atenolol [Tenormin] 1 tab PO DAILY Amlodipine [Norvasc] 5 mg PO DAILY Apixaban [Eliquis] 5 mg PO BID DiltiaZEM CD [Cardizem Cd] 360 mg PO DAILY Omeprazole [Prilosec] 1 cap PO ACBID Losartan Potassium [Cozaar] 50 mg PO HS Discharge Instructions/Outpatient Orders: Final Provider Discharge Instructions Location: Determined By Patient - Disposition [facility] [place] [facility]
[2017-06-08] MEDS ORDERED: APIXABAN 5 MG TABLET PO SCH (21:00)
== END 2017-06-08 15:40 | DRG 309 ==
LOC: ED 07:03 → CCU 10:01 → MED 06-06 18:52
PROVIDERS: ADMIT Internal Medicine Infectious Disease; ATTEND Internal Medicine

== ENCOUNTER 2017-06-08 15:39 | Inpatient (IN) ==
--- NOTE | 2017-06-08 16:13 | IRU History & Physical Report ---
[facility] Date: 606 Chief complaint: My heart was racing HPI: Ms. Salguero is an 87-year-old female followed by Dr. Pankaj Arora. She lives in [place], [place] with her . She was admitted to the [facility] hospital after having been seen in the emergency department on 06/04/2017. Reportedly she awakened from sleep, somewhat short of breath and with a sensation that her heart was racing. She had some nausea but no lightheadedness and no chest pain. She was brought by EMS to the emergency department at [facility]. Troponins were negative. She was given diltiazem intravenously in the emergency department. She was found to have atrial fibrillation with rapid ventricular response. She was admitted to the intensive care unit and was seen by the hospitalists as well as Dr. Hudson, cardiology. Echocardiogram revealed a normal ejection fraction with some biatrial enlargement and left ventricular hypertrophy. Pulmonary artery systolic pressure was estimated at only 31 mmHg. There were a few minor valvular abnormalities but nothing major. She continues in atrial fibrillation. She was on Eliquis but that is on hold because the possibility of needing a pacemaker at some point. She has fallen recently as well. She does have an ecchymosis around the right periorbital area. Exact date of the fall is not clear to me but possibly was on the same date as the atrial fibrillation. With regard to the current admission, her CK was elevated over 300. Troponins were negative 3. D-dimer was elevated. CT angiogram of the chest was negative for pulmonary embolus. The patient does have history of normal pressure hydrocephalus with a ASSOCIATE DENTIST shunt having been placed in the past. Her responses are somewhat slow and she clearly does have some decreased memory. In addition she states that she does fall frequently which may well be related to the normal pressure hydrocephalus. For these reasons, the patient will require an intensive individualized plan for therapy to include occupational therapy and physical therapy as well as medical management of several medical conditions. The following medical conditions are noted and require active monitoring and/or management: 1. New onset atrial fibrillation with rapid ventricular response: Patient is at risk for lightheadedness, hypotension and further cardiac decompensation. In addition she is on a new medication for this (diltiazem) for which will need to monitor side effects. 2. Normal pressure hydrocephalus: s/p ASSOCIATE DENTIST shunt but with ongoing falls and memory loss 3. Hypertension: Because of her recent onset of atrial fibrillation with rapid ventricular response, her blood pressure response to medications may be variable. She will be monitored for both hypo-and hypertension. The following therapies will be needed: 1. Physical therapy: for transfers and ambulation and stairs. 2. Occupational therapy: for ADL's and transfers. 3. Dietitian: To ensure adequate nutrition. 4. Medical management: for the above conditions. 5. 24 hour Rehabilitation Nursing to monitor and address the following: Monitoring of pulse, blood pressure, respiratory status. Review of Systems - Constitutional Constitutional: Present: fatigue, lethargy. Absent: fever(s), headache(s) - EENMT Eyes: Absent: blurry vision, change in vision, diplopia Ears: Absent: ear discharge Balance: Absent: vertigo Mouth/Throat: Absent: pain, sore throat, scratchy throat, painful swallowing - Cardiovascular Cardiovascular: Present: palpitations. Absent: chest pain, syncope, dyspnea on exertion, orthopnea, edema, cyanosis Rhythm: Present: abnormal rhythm Vascular: Absent: intermittent claudication, pedal edema, phlebitis - Respiratory Respiratory: Absent: cough, dyspnea, hemoptysis, dyspnea on exertion, pain on inspiration, chest congestion - Gastrointestinal Gastrointestinal: Present: constipation. Absent: abdominal pain, change in bowel habits, change in stool character, diarrhea, dyspepsia, hematemesis, hematochezia, melena - Musculoskeletal Musculoskeletal: Absent: abnormal gait, arthralgias, atrophy, back pain - Integumentary/Breasts Integumentary: Absent: alopecia - Neurological Neurological: Present: memory loss, weakness. Absent: abnormal gait, abnormal movements, abnormal speech, convulsions, numbness, paresthesias, vertigo [facility] Patient Stated Medical History Hypertension Yes Hx Renal Disease No Depression Yes Medical History Updates: 1. Normal pressure hydrocephalus status post ASSOCIATE DENTIST shunt. 2. Atrial fibrillation with rapid ventricular response. 3. Benign essential hypertension. 4. Left ventricular hypertrophy Surgical History: Appendectomy, tonsillectomy, cataract extraction, ASSOCIATE DENTIST shunt- 2001, open reduction with internal fixation of left humerus-2010, perineal tear repair, colonoscopy-2001 Family History: Patient is a bit unclear regarding her family history. She believes that her father of a "bad heart." He at an uncertain age. Mother apparently of old age but patient is not clear exactly what the situation was. 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 Medications Home Medications Medication Instructions Recorded Confirmed Type Atenolol 100 mg PO DAILY #0 08/30/11 06/04/17 History hydroCHLOROthiazide 12.5 mg PO DAILY #0 08/30/11 06/04/17 History [Hydrochlorothiazide] Losartan Potassium 50 mg PO HS #0 01/28/16 06/04/17 History Amlodipine Besylate 5 mg PO DAILY #0 11/09/16 06/04/17 History [place]-3 Fatty Acids/Fish Oil [Fish 1,000 mg PO DAILY #0 11/09/16 06/04/17 History Oil 1,000 mg Capsule] Allergies Allergy/AdvReac Type Severity Reaction Status Date / Time No Known Allergies Allergy Unverified 11/09/16 17:15 Results IRU - Labs Labs: I reviewed the chart from the acute hospitalization including chest x-ray, dictated reports, echocardiogram and lab work. Exam Vital Signs: Temperature 97.6 F 06/08/17 15:40 Pulse Rate 60 06/08/17 15:40 Respiratory Rate 12 06/08/17 15:40 Blood Pressure 107/60 06/08/17 15:40 Pulse Oximetry 97 06/08/17 15:40 Height/Weight/BMI: Weight 72.6 kg - Constitutional Present: no acute distress, well nourished. Absent: obese, cachectic - Routine HEENT Exam Head: Present: normocephalic, hematoma (has a couple small ecchymoses in the right periorbital area.) Eye: Present: EOMI, PERRL. Absent: conjunctival icterus, scleral injection ENT: Present: mucous membranes moist - Routine Neck Exam Present: supple, full ROM - Routine Respiratory Exam Present: decreased breath sounds, CTA bilaterally. Absent: accessory muscle use , dyspnea, prolonged expiratory phase, rhonchi, wheezes, crackles - Routine Cardiovascular Exam Present: S1, S2, no murmur, irregularly irregular - Routine Abdominal Exam Present: soft, normoactive bowel sounds, non distended, non tender. Absent: organomegaly, mass - Routine Extremities Exam Present: no edema, non tender, full ROM. Absent: cyanosis - Routine Skin Exam Present: intact, dry. Absent: erythema, petechiae - Routine Neurological Exam Present: alert, CN II-XII intact, normal speech (somewhat slow response. Memory deficit noted.). Absent: oriented X3, facial asymmetry - Routine Psychiatric Exam Present: normal affect, normal thought process, cooperative, anxious. Absent: suicidal ideation, good insight, good judgment Sepsis Assessment - Evaluation Sepsis screening result: No Definite Risk IRU A/P (1) Atrial fibrillation with RVR Current visit: No Status: Acute (2) Essential (primary) hypertension Current visit: No Status: Acute (3) Normal pressure hydrocephalus Current visit: Yes Status: Acute DVT Prophylaxis: SCD's, Lovenox Resuscitation Status: Full Code - Course Hospital Course: Solomon Walton MD: - Interventions to Obtain Goals Goals Progress/Modifications: Goals: Return patient safely to her prior living environment with modified independent functioning for ambulation, transfers, activities of daily living. Anticipated length of stay of one week. Barriers to improvement will be her cognition as well as possible medical issues of atrial fib with RVR
--- NOTE | 2017-06-08 16:25 | IRU 24Hr Post Admit Eval ---
24 Hr Post Admission Physical - Relevant Changes Relevant Changes: No Reviewed: I have reviewed the patient's information and concur with the finding and results of the pre-admission screen. Certification: I certify the patient for rehabilitation. - Patient Condition (1) Atrial fibrillation with RVR Status: Acute Code(s): I48.91 - Unspecified atrial fibrillation Classification: Present on IRF Admission, IRF Tx That Should Address Diagnosis, Diagnosis Requiring Medical Follow Up (2) Essential (primary) hypertension Status: Acute Code(s): I10 - Essential (primary) hypertension Classification: Present on IRF Admission, Diagnosis Requiring Medical Follow Up (3) Normal pressure hydrocephalus Status: Acute Code(s): G91.2 - (Idiopathic) normal pressure hydrocephalus Classification: Present on IRF Admission, IRF Tx That Should Address Diagnosis, Diagnosis Requiring Medical Follow Up - Prior Functional Status Lives With: Spouse Residence Type: Apartment/Private Home Assitive Devices: Front Wheeled Walker Prior Functional Status: Indep. at home or school, Used assistive device - Current Functional Status Failed Alternative Therapy: Arrived from Acute Care Patient Requirements: The patient requires oversight by rehabilitation physician to manage their rehabilitation treatment plan and multidisciplinary approach to care that can only be provided in an IRF and requires a multidisciplinary approach to care, provided by professional PTs, OTs, STs, dieticians, RTs, rehabilitation nurses and is not available in lesser levels of care. Limitiations Req: Mobility Impairment, ADL Impairment, Limited Mobility, Cognitive Impairment Physical Therapy Minutes: 90 Occupational Therapy Minutes: 90 Therapy: The patient is to receive therapy at least 5 days a week. - Complications/Comorbidities Impact on Functional Outcomes: Her atrial fibrillation with rapid ventricular response and new medication of diltiazem may impact her ability to ambulate and transfer. In addition her memory loss will likely impact her functional recovery. - Plan to Avoid Complications Plan to Avoid Complications: The patient cannot receive this care in a lesser intensive setting such as Halfway or Outpatient Therapy due to the patient requiring the following : Close telemetry monitoring of her atrial fibrillation, monitoring of blood pressure and pulse. .
--- NOTE | 2017-06-08 16:39 | Progress Note ---
Progress Note: On a previous note there was indication that Eliquis was being held for possible pacemaker placement. However that is not the case and she is on Eliquis. We will discontinue enoxeparin in this case and continue Eliquis.
[2017-06-08 16:43] VITALS: BMI 29.2
[2017-06-08] MEDS: OMEPRAZOLE 20 MG CAPSULE PO SCH (18:37)
[2017-06-08] MEDS: LOSARTAN 50 MG TABLET PO SCH (20:30)
[2017-06-08] MEDS: APIXABAN 5 MG TABLET PO SCH (20:30)
[2017-06-09] MEDS: OMEPRAZOLE 20 MG CAPSULE PO SCH ×2 (06:51→17:51)
[2017-06-09] MEDS: AMLODIPINE 5 MG TABLET PO SCH (08:56)
[2017-06-09] MEDS: ATENOLOL 100 MG TABLET PO SCH (08:56)
[2017-06-09] MEDS: APIXABAN 5 MG TABLET PO SCH ×2 (08:56→20:16)
[2017-06-09] MEDS ORDERED: ENOXAPARIN 40 MG/0.4 ML INJECTION SQ SCH (09:00)
[2017-06-09] MEDS: DiltiaZEM CD 360 MG CAPSULE PO SCH (09:15)
--- NOTE | 2017-06-09 10:13 | Consult Note ---
<[address] St - Last Filed: 06/09/17 10:22> Consult Information - Data of Consult Consult date: 06/09/17 Requesting Physician: Solomon Walton MD Primary Care Provider: Pankaj Arora MD Family Provider: Pankaj Arora MD - Consult Narrative Reason for consult: ongoing medical management of chronic health problems including atrial fib History of present illness: Patient is an 87-year-old female who was transferred from the medical unit to rehabilitation unit. She was initially admitted through the emergency room on 06/04/17 because she had some shortness of breath and had fallen at home. In the emergency room she was found to be in atrial fibrillation with rapid ventricular rate. Patient has history of NPH. CT was done on admission due to her falls, this did not show any acute process. She was admitted to the CCU initially for IV Cardizem. Her rate was controlled with Cardizem, she was moved to the medical floor on 06/06/17. She currently continues on Cardizem [address] Hudson has been following her. There was some talk of perhaps needing a pacemaker in the event she needed further rate control, and given the number of pauses she was having on telemetry, but she has done well, so at this point there will be no immediate plan of pacemaker implantation. Her Eliquis was on hold, but this was resumed today. Patient is seen sitting in her room today. She has no complaints. She reports she feels well and has no pain. No lightheadedness or dizziness. No chest pain or shortness of breath. She does admit to being weak. Is willing to participate in rehabilitation. She is pleasant. She does have some memory deficits. She is able to tell me she is in [place], but is unable to name the facility she is in. 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 Vides) Benign essential tremor Osteo-arthritis Depression Recurrent cystitis Allergic rhinitis Memory deficits Surgical History: Appendectomy, tonsillectomy, cataract extraction, CASE COORDINATOR shunt- 2001, open reduction with internal fixation of left humerus-2010, perineal tear repair, colonoscopy-2001 - Social History Smoking status: Never smoker Substance use type: does not use Alcohol intake frequency: does not drink Housing: other ([facility]) Household members: spouse Current occupational status: retired Social history: PCP-Dr. Pankaj Arora Neurologist-Dr. Maxx Vides Review of Systems Comprehensive ROS: completed and no additional positive findings except those as stated - Constitutional Constitutional: Present: weakness Medications Home Medications Medication Instructions Recorded Confirmed Type Amlodipine [Norvasc] 5 mg PO DAILY 06/08/17 06/08/17 History Apixaban [Eliquis] 5 mg PO BID 06/08/17 06/08/17 History Atenolol [Tenormin] 1 tab PO DAILY 06/08/17 06/08/17 History DiltiaZEM CD [Cardizem Cd] 360 mg PO DAILY 06/08/17 06/08/17 History HydroCHLOROthiazide [Microzide] 1 cap PO WB 06/08/17 06/08/17 History Losartan Potassium [Cozaar] 50 mg PO HS 06/08/17 06/08/17 History Omeprazole [Prilosec] 1 cap PO ACBID 06/08/17 06/08/17 History Allergies Allergy/AdvReac Type Severity Reaction Status Date / Time No Known Allergies Allergy Unverified 11/09/16 17:15 Exam Vital Signs: Temperature 97.4 F 06/08/17 20:12 Pulse Rate 111 H 06/09/17 08:00 Respiratory Rate 18 06/09/17 08:00 Blood Pressure 124/70 06/09/17 08:00 Pulse Oximetry 96 06/09/17 08:00 Height/Weight/BMI: Height 1.57 m Weight 72.6 kg Body Mass Index 29.2 - Constitutional Present: no acute distress, well nourished, well developed - Routine HEENT Exam Head: Present: normocephalic, atraumatic Eye: Present: EOMI ENT: Present: mucous membranes moist - Routine Neck Exam Present: supple, full ROM - Routine Respiratory Exam Present: CTA bilaterally. Absent: wheezes - Routine Cardiovascular Exam Present: no murmur, irregularly irregular - Routine Abdominal Exam Present: soft, normoactive bowel sounds, non distended. Absent: tenderness - Routine Extremities Exam Present: no edema, normal capillary refill - Routine Skin Exam Present: dry, warm Comments: Resolving bruise under the right eye - Routine Neurological Exam Present: alert. Absent: oriented X3 (oriented to self and to city.) - Routine Psychiatric Exam Present: normal affect Results - Labs CBC & Chem 7: 06/09/17 06:11 06/09/17 06:11 Assessment and Plan Assessment and Plan: Assessment New onset atrial fibrillation with RVR Essential hypertension Hyperlipidemia Normal pressure hydrocephalus - CASE COORDINATOR shunt (Dr. Vides) Benign essential tremor Osteo-arthritis Depression Recurrent cystitis Allergic rhinitis Memory deficits Plan Agree with admission to rehabilitation unit under the care of Dr. Walton. Continue current medications and telemetry. Blood pressures have been stable. Since admission to IRU, telemetry shows A. fib mostly running lower 100's with nonsustained rates up to 140s with activity. Consider cardiology consult if patient's rates are not controlled or other concerning findings arise. Bowel motivation with senna. Thank you for the consult. We will continue to follow along with you throughout patient's stay. Patient's care to return to Dr. Pankaj Arora on discharge. Hospital Course Summary Disclaimer: The visit summary below is not to be considered part of the above Progress Note. Hospital Course: New onset atrial fibrillation with RVR Essential hypertension Hyperlipidemia Normal pressure hydrocephalus - CASE COORDINATOR shunt (Dr. Vides) Benign essential tremor Osteo-arthritis Depression Recurrent cystitis Allergic rhinitis Memory deficits 06/09/17 -Hospitalist consultation Agree with admission to rehabilitation unit under the care of Dr. Walton. Continue current medications and telemetry. Blood pressures have been stable. Since admission to IRU, telemetry shows A. fib mostly running lower 100's with nonsustained rates up to 140s with activity. Consider cardiology consult if patient's rates are not controlled or other concerning findings arise. Bowel motivation with senna. Thank you for the consult. We will continue to follow along with you throughout patient's stay. Patient's care to return to Dr. Pankaj Arora on discharge. Sepsis Assessment - Evaluation Sepsis screening result: No Definite Risk <Gaudencio Akbar - Last Filed: 06/09/17 17:37> Consult Information - Data of Consult Requesting Physician: Solomon Walton MD Primary Care Provider: Pankaj Arora MD Family Provider: Pankaj Arora MD [facility] Patient Stated Medical History Hypertension Yes Constipation No Hx Incontinence No Hx Renal Disease No Depression Yes Exam Vital Signs: Temperature 97.5 F 06/09/17 16:00 Pulse Rate 78 06/09/17 16:00 Respiratory Rate 20 06/09/17 16:00 Blood Pressure 97/65 06/09/17 16:00 Pulse Oximetry 95 06/09/17 16:00 Height/Weight/BMI: Height 1.57 m Weight 72.6 kg Body Mass Index 29.2 Results - Labs CBC & Chem 7: 06/09/17 06:11 06/09/17 06:11 Assessment and Plan Assessment and Plan: Assessment New onset atrial fibrillation with RVR Essential hypertension Hyperlipidemia Normal pressure hydrocephalus - CASE COORDINATOR shunt (Dr. Vides) Benign essential tremor Osteo-arthritis Depression Recurrent cystitis Allergic rhinitis Memory deficits Have independently interviewed and examined pt. Chart reviewed. Case discussed with my PA. Above care plan developed with my supervision; agree with above. Doing well this evening. Tired form working with therapy. Denies chest pressure , pain, or palpitations. Breathing doing well-not SOA or congested. Eating well. No ab pain. Lungs; decreased, no distress CV: irregularly irregular AB; soft nt/nd +NS MSE: Awake alert appropriate Plan: Agree with admission of patient to IRU to maximize strength and functional status. Continue with meds from acute. Monitor HR. Encourage therapy and activities. Medically stable for IRU floor activities. Hospital Course Summary Disclaimer: The visit summary below is not to be considered part of the above Progress Note.
[2017-06-09] MEDS ORDERED: ACETAMINOPHEN 325 MG TABLET PO PRN (11:20)
--- NOTE | 2017-06-09 11:26 | IRU Progress Note ---
- Subjective/Serverity of Illness Ms. Slaguero was evaluated in her room today. She seems to be comfortable. When I asked her how she was doing she told me that I needed to advise her of how she was doing. Memory loss continues to be a significant issue. She denied any pain whatsoever when I interviewed her. However subsequently she was working with therapy and reported significant pain in the knee. This was a 7 out of 10. We will start with some Tylenol to see if that helps. Appreciate hospitalist input. Therapist observed her pocketing her food. We will involve speech therapy in this regard as well as for cognitive/linguistic evaluation and training. Update on medical issues as follows: 1. New onset atrial fibrillation with rapid ventricular response: Currently she is tolerating the diltiazem adequately. She is also on Eliquis without active bleeding. Denies lightheadedness. Denies shortness of breath or chest pain. Cardiology had been following the patient on acute. Pulse has ranged from the low 60s to 111. 2. Normal pressure hydrocephalus: She has experienced multiple falls at home as well as memory loss. She is chronically urinary incontinent. This is impacting her therapy and functional recovery. 3. Hypertension: Blood pressures are monitored. She has not been hypotensive. Exam Vital Signs: Temperature 97.4 F 06/08/17 20:12 Pulse Rate 109 H 06/09/17 08:00 Respiratory Rate 18 06/09/17 08:00 Blood Pressure 124/70 06/09/17 08:00 Pulse Oximetry 96 06/09/17 08:00 Height/Weight/BMI: Height 1.57 m Weight 72.6 kg Body Mass Index 29.2 Comments: The patient is awake, alert and in no acute distress. (Subsequently she did complain of knee pain when she was working with therapy). She clearly is not fully oriented. Oriented primarily to herself. Pupils are equal. The neck is supple. Chest: Clear to auscultation bilaterally. Cor: irregular rhythm with no gallop, click nor murmur. Abd: soft with normo-active bowel sounds. There are no masses, no tenderness and no guarding. Extremities: No edema is noted. There are good pulses in both ankles. No cyanosis is present. Results IRU - Labs Labs: Reviewed current lab. Hemoglobin down slightly at 11.9 although indices are normal. Sepsis Assessment - Evaluation Sepsis screening result: No Definite Risk IRU A/P (1) Atrial fibrillation with RVR Current visit: No Status: Acute She continues in atrial fibrillation clinically. This is fairly asymptomatic. I asked her if she could tell of her heart was irregular she indicated that she could from time to time. However denies any lightheadedness or shortness of breath or chest pain. (2) Essential (primary) hypertension Current visit: No Status: Acute Blood pressures are currently adequately controlled. (3) Normal pressure hydrocephalus Current visit: Yes Status: Chronic She does have history of normal pressure hydrocephalus status post shunt placement. Not certain how long ago that was. She has the typical triad of ataxia, incontinence and cognitive deficit. This is a factor in her progression. DVT Prophylaxis: SCD's, Lovenox Resuscitation Status: Full Code - Course Hospital Course: Solomon Walton MD: 06/09/17 11:27 Patient is settling into rehabilitation well. She is cooperative with therapy. She has developed some knee pain. Currently tolerating new medications adequately without lightheadedness. Continues in atrial fibrillation but this is relatively asymptomatic. - Interventions to Obtain Goals PT Treatment Plan: Balance/Proprioception, Functional Activities, Manual Therapy , Patient/Family Education, Therapeutic Exercise OT Treatment Plan: ADL (Basic Care), Balance Training, IADL, Pt./Family Education, Ther. Exercise for ADL Goals Progress/Modifications: Time spent with patient and on floor reviewing data and documentin minutes Barriers to dismissal: Cognition, knee pain, Medical decision-making: We started some pain medication today for her knee pain. In addition, because of the pocketing of food as well as cognitive deficit , we will involve speech therapy. Please note that the patient's individual plan of care was developed and documented today, requiring review of therapy notes, medical conditions and anticipated functional recovery. This required additional medical decision making with regard to interaction of the patient's medical issues with the anticipated functional recovery. Please see separate document
--- NOTE | 2017-06-09 11:33 | IRU Plan of Care ---
[facility] Overall Plan of Care - Date Date: 06/09/17 - Relevant Changes Relevant Changes: No Reviewed: I have reviewed the patient's information and concur with the finding and results of the pre-admission screen. Certification: I certify the patient for rehabilitation. - Medical Prognosis Medical Prognosis: Good Vital Signs: Last Vital Signs Temp 97.4 F 06/08/17 20:12 Pulse 109 H 06/09/17 08:00 Resp 18 06/09/17 08:00 BP 124/70 06/09/17 08:00 Pulse Ox 96 06/09/17 08:00 - Anticipated Interventions Anticipated Interventions: The patient requires inpatient IRF care for PT, OT, and/or ST for residuals remaining from new onset atrial fibrillation with institution of new medications as well as frequent falls at home resulting in muscular weakness and strength deficits. - FIM Ambulation Distance: 97 - Current Functional Status Failed Alternative Therapy: Arrived from Acute Care Patient Requires: The patient requires oversight by rehabilitation physician to manage their rehabilitation treatment plan and multidisciplinary approach to care that can only be provided in an IRF and requires a multidisciplinary approach to care, provided by professional PTs, OTs, STs, dieticians, RTs, rehabilitation nurses and is not available in lesser levels of care. Speech-Language Pathology Minutes: 30 Physical Therapy Minutes: 90 Occupational Therapy Minutes: 90 Therapy: The patient is to receive therapy at least [address] Treatment Plan: Swallow Retraining/Exercises, Oral Motor Exercise, Cognitive Linguistic Tx, Memory Retraining ST Treatment Plan Duration: Two Weeks ST Treatment Plan Frequency: Five Times Per Week - Anticipated LOS/Outcomes Anticipated Functional Outcome: It is anticipated the patient will be able to return to her home at modified independent level of functioning for grooming, dressing, ambulation and transfers. Anticipated Length of Stay: 14 Anticipated DC Destination: Home, Self Care, Home Health Service Home Safety Plan: The patient will be provided with the development of a Home Safety Plan for return to a home or home-like environment and and to ensure safety post discharge. - Plan to Avoid Complications Barriers to Attaining Goals: Weakness, Endurance, Comprehension Plan to Avoid Complications: The patient cannot receive this care in a lesser intensive setting such as Retirement or Outpatient Therapy due to the patient requiring the following : FPC and medical supervision of atrial fibrillation with rapid ventricular response to manage and monitor tolerance to new medication ( diltiazem and Eliquis).
[2017-06-09] MEDS ORDERED: FALL RISK - PHARMACY CONSULT MC PRN (17:19)
[2017-06-09] MEDS: LOSARTAN 50 MG TABLET PO SCH (20:16)
[2017-06-09] MEDS: SENNOSIDES 8.6 MG TABLET PO SCH (20:17)
[2017-06-10] MEDS ORDERED: ONDANSETRON 4 MG/2 ML INJECTION IVP PRN (02:28)
[2017-06-10] MEDS: OMEPRAZOLE 20 MG CAPSULE PO SCH ×2 (06:46→17:49)
[2017-06-10] MEDS: AMLODIPINE 5 MG TABLET PO SCH (09:00)
[2017-06-10] MEDS: ATENOLOL 100 MG TABLET PO SCH (09:00)
[2017-06-10] MEDS: DiltiaZEM CD 360 MG CAPSULE PO SCH (09:00)
[2017-06-10] MEDS: APIXABAN 5 MG TABLET PO SCH ×2 (09:00→20:38)
--- NOTE | 2017-06-10 10:45 | Progress Note ---
Subjective: Devyn is seen this morning in follow-up while finishing breakfast. She is noted to be tachycardic on auscultation in the 120s. Telemetry reviewed and patient is between 120 and 140 depending on activity. Devyn denies feeling chest pain or shortness of breath. She report that she did not sleep overnight because she could not get comfortable. Objective Vital signs: Temperature 97.8 F 06/10/17 08:00 Pulse Rate 143 H 06/10/17 09:03 Respiratory Rate 16 06/10/17 08:00 Blood Pressure 142/96 H 06/10/17 08:00 Pulse Oximetry 98 06/10/17 08:00 Rhythm: Atrial Fibrillation with RVR Height/Weight/BMI: Height 1.57 m Weight 72.6 kg Body Mass Index 29.2 - Constitutional Present: no acute distress, well nourished, well developed - Routine HEENT Exam Eye: Present: EOMI ENT: Present: mucous membranes moist, dentition normal - Routine Respiratory Exam Present: CTA bilaterally. Absent: wheezes - Routine Cardiovascular Exam Present: S1, S2, no murmur, irregular rhythm. Absent: murmur - Routine Abdominal Exam Present: soft, normoactive bowel sounds, non distended. 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 Vides) Benign essential tremor Osteo-arthritis Depression Recurrent cystitis Allergic rhinitis Memory deficits Plan Telemetry reviewed and A-fib rate increased 120-140's this morning. Currently on atenolol 100 milligrams, Cardizem 360 milligrams. Spoke with Cardiology team- Will consult for expertise and recommendations for better rate control Did review morning laboratory studies. Sodium is slightly up at 145, however, this has been chronic. Continues on all across twice a day for chronic anticoagulation. Encourage work with PT and OT for ongoing strengthening Sepsis Assessment - Evaluation Sepsis screening result: No Definite Risk Hospital Course Summary Disclaimer: The visit summary below is not to be considered part of the above Progress Note. 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 Vides) Benign essential tremor Osteo-arthritis Depression Recurrent cystitis Allergic rhinitis Memory deficits 06/09/17 -Hospitalist consultation Agree with admission to rehabilitation unit under the care of Dr. Walton. Continue current medications and telemetry. Blood pressures have been stable. Since admission to IRU, telemetry shows A. fib mostly running lower 100's with nonsustained rates up to 140s with activity. Consider cardiology consult if patient's rates are not controlled or other concerning findings arise. Bowel motivation with senna. Thank you for the consult. We will continue to follow along with you throughout patient's stay. Patient's care to return to Dr. Pankaj Arora on discharge. 06/10/17 Plan Telemetry reviewed and A-fib rate increased 120-140's this morning. Currently on atenolol 100 milligrams, Cardizem 360 milligrams. Spoke with Cardiology team- Will consult for expertise and recommendations for better rate control Did review morning laboratory studies. Sodium is slightly up at 145, however, this has been chronic. Continues on all across twice a day for chronic anticoagulation. Encourage work with PT and OT for ongoing strengthening
--- NOTE | 2017-06-10 12:30 | Cardiology Consult Note ---
History of Present Illness Consult date: 06/10/17 <Monika Martinez - 06/10/17 12:43> Requesting physician: Solomon Walton <Monika Martinez - 06/10/17 12:43> Consult reason: atrial fibrillation <Monika Martinez - 06/10/17 12:43> Chief complaint: AFib <Monika Martinez - 06/10/17 12:43> History of present illness: Ms. Salguero is an 87-year-old female followed by Dr. Pankaj Arora. She lives in [place], [place] with her . She was admitted to the [facility] hospital after having been seen in the emergency department on 06/04/2017. Reportedly she awakened from sleep, somewhat short of breath and with a sensation that her heart was racing. She had some nausea but no lightheadedness and no chest pain. She was brought by EMS to the emergency department at [facility]. Troponins were negative. She was found to have atrial fibrillation with rapid ventricular response. She was admitted to the intensive care unit and was seen by the hospitalists as well as Dr. Hudson , cardiology. Echocardiogram revealed a normal ejection fraction with some biatrial enlargement and left ventricular hypertrophy. Pulmonary artery systolic pressure was estimated at 31 mmHg and a few minor valvular abnormalities were noted. She continues in atrial fibrillation. She was on Eliquis. She has fallen recently as well. She does have an ecchymosis around the right periorbital area. 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 Her responses are somewhat slow and she clearly does have some decreased memory. In addition she states that she does fall frequently which may well be related to the normal pressure hydrocephalus. Today she has had a sustained rapid ventricular response, despite PO Cardizem, especially with activity up to the 140s. Dr. Hudson is again consulted for evaluation and medications management of AFib. <Monika Martinez - 06/10/17 12:43> Review of Systems - Constitutional Constitutional: Present: fatigue, weakness. Absent: chills, fever(s) < Monika Martinez 06/10/17 12:43> - EENMT Eyes: Absent: change in vision <Monika Martinez 06/10/17 12:43> Ears: Absent: ear discharge <Monika Martinez 06/10/17 12:43> Balance: Absent: vertigo <Monika Martinez 06/10/17 12:43> Mouth/Throat: Absent: pain, sore throat, scratchy throat, painful swallowing < Monika Martinez 06/10/17 12:43> - Cardiovascular Cardiovascular: Present: palpitations. Absent: chest pain, syncope, dyspnea on exertion <Monika Martinez 06/10/17 12:43> Rhythm: Present: abnormal rhythm <Monika Martinez 06/10/17 12:43> Vascular: Absent: intermittent claudication, pedal edema, phlebitis <Monika Martinez 06/10/17 12:43> - Respiratory Respiratory: Absent: cough, dyspnea <Monika Martinez 06/10/17 12:43> - Gastrointestinal Gastrointestinal: Absent: diarrhea, nausea, vomiting <JuanMonika 12:43> - Genitourinary Genitourinary: Absent: dysuria <Monika Martinez 06/10/17 12:43> - Integumentary/Breasts Integumentary: Absent: rash <Monika Martinez 06/10/17 12:43> - Neurological Neurological: Present: memory loss, weakness. Absent: dizziness <Monika Martinez 06/10/17 12:43> - Psychiatric Psychiatric: Absent: anxiety <Monika Martinez 06/10/17 12:43> - Endocrine Endocrine: Present: palpitations <JuanMonika 06/10/17 12:43> [facility] Patient Stated Medical History Hypertension Yes Constipation No Hx Incontinence No Hx Renal Disease No Depression Yes <Nilson Hudson - 06/16/17 08:01> Patient Stated Medical History Hypertension Yes Constipation No Hx Incontinence No Hx Renal Disease No Depression Yes <JuanMonika Law 06/10/17 12:43> Medical History Updates: 1. Normal pressure hydrocephalus status post TURN OPERATOR shunt. 2. Atrial fibrillation with rapid ventricular response. 3. Benign essential hypertension. 4. Left ventricular hypertrophy <JuanMonika nelson 06/10/17 12: 43> Surgical History: Appendectomy, tonsillectomy, cataract extraction, TURN OPERATOR shunt- 2001, open reduction with internal fixation of left humerus-2010, perineal tear repair, colonoscopy-2001 <Monika Martinez 06/10/17 12:43> Family History: Patient is a bit unclear regarding her family history. She believes that her father of a "bad heart." He at an uncertain age. Mother apparently of old age but patient is not clear exactly what the situation was. <Monika Martinez 06/10/17 12:43> - Social History Smoking status: Never smoker <Monika Martinez 06/10/17 12:43> Substance use type: does not use <Monika Martinez 06/10/17 12:43> Alcohol intake: never <Monika Martinez 06/10/17 12:43> Alcohol intake frequency: does not drink <Monika Martinez 06/10/17 12:43> Housing: apartment <Monika Martinez 06/10/17 12:43> Household members: spouse <Monika Martinez 06/10/17 12:43> Current occupational status: retired <Monika Martinez 06/10/17 12:43> Current residence: Independent Living <Monika Martinez 06/10/17 12:43> Medications Home Medications Medication Instructions Recorded Confirmed Type Amlodipine [Norvasc] 5 mg PO DAILY 06/08/17 06/08/17 History Apixaban [Eliquis] 5 mg PO BID 06/08/17 06/08/17 History Atenolol [Tenormin] 1 tab PO DAILY 06/08/17 06/08/17 History DiltiaZEM CD [Cardizem Cd] 360 mg PO DAILY 06/08/17 06/08/17 History HydroCHLOROthiazide [Microzide] 1 cap PO WB 06/08/17 06/08/17 History Losartan Potassium [Cozaar] 50 mg PO HS 06/08/17 06/08/17 History Omeprazole [Prilosec] 1 cap PO ACBID 06/08/17 06/08/17 History <Nilson Hudson - 06/16/17 08:01> Allergies Allergy/AdvReac Type Severity Reaction Status Date / Time No Known Allergies Allergy Unverified 11/09/16 17:15 <Nilson Hudson - 06/16/17 08:01> Exam Vital signs: Temperature 97.6 F 06/15/17 19:26 Pulse Rate 97 06/16/17 00:00 Respiratory Rate 16 06/16/17 07:34 Blood Pressure 120/66 06/15/17 19:26 Pulse Oximetry 96 06/16/17 07:34 <Nilson Hudson - 06/16/17 08:01> Temperature 97.8 F 06/10/17 08:00 Pulse Rate 115 H 06/10/17 11:56 Respiratory Rate 16 06/10/17 08:00 Blood Pressure 129/76 06/10/17 11:56 Pulse Oximetry 98 06/10/17 08:00 <Monika Martinez 06/10/17 12:43> - Constitutional no acute distress, well nourished, cooperative <Monika Martinez 06/10/17 12: 43> - Routine HEENT Exam Head: Present: normocephalic <Monika Martinez 06/10/17 12:43> ENT: Present: mucous membranes moist <Monika Martinez 06/10/17 12:43> - Routine Neck Exam Absent: JVD, carotid bruit <Monika Martinez 06/10/17 12:43> - Routine Chest/Breast/Axilla Exam Chest wall: Absent: tenderness <Monika Martinez 06/10/17 12:43> - Routine Respiratory Exam Present: CTA bilaterally. Absent: rales, wheezes <Monika Martinez 06/10/17 12:43> - Routine Cardiovascular Exam Present: no murmur, irregular rhythm. Absent: JVD <Monika Martinez 06/10/17 12:43> - Routine Abdominal Exam Present: soft, normoactive bowel sounds <Monika Martinez 06/10/17 12:43> - Routine Extremities Exam Present: no edema <Monika Martinez 06/10/17 12:43> - Routine Skin Exam Present: intact, dry, warm <Monika Martinez 06/10/17 12:43> - Routine Neurological Exam Present: alert, oriented X3 <Monika Martinez - 06/10/17 12:43> - Routine Psychiatric Exam Present: normal affect, normal thought process <Monika Martinez - 06/10/17 12: 43> Results 06/14/17 03:37 06/15/17 04:19 <Nilson Hudson - 06/16/17 08:01> Intake and Output 06/15/17 06/16/17 06/16/17 22:59 06:59 14:59 Other: Urine Appearance Clear Clear Urine Color Yellow Yellow # Voids 1 1 Weight 73.9 kg <Suzan Hudsonin - 06/16/17 08:01> Intake and Output 06/09/17 06/10/17 06/10/17 22:59 06:59 14:59 Intake Total 240 / 240 430 / 430 Output Total 100 / 100 100 / 100 Balance 140 / 140 -100 / -100 430 / 430 Intake: Oral 240 / 240 430 / 430 Output: Urine 100 / 100 100 / 100 Other: Urine Appearance Clear Clear Clear Urine Color Yellow Yellow Yellow Urine Odor Normal Normal Normal Stool Color Brown Brown Stool Consistency Soft Formed Size of Bowel Movement Small Moderate # Voids 1 1 1 # Incontinent Voids 1 # Bowel Movements 1 1 Laboratory Results - last 48 hr 06/09/17 06/09/17 06/10/17 06:11 06:11 02:02 WBC 7.8 RBC 3.89 L Hgb 11.9 L Hct 35.0 L MCV 90.0 MCH 30.6 MCHC 34.0 RDW Std Deviation 45.5 Plt Count 168 MPV 9.5 Immature Gran % (Auto) 0.3 Neut % (Auto) 71.3 H Lymph % (Auto) 17.0 L [place] % (Auto) 8.3 Eos % (Auto) 2.7 Baso % (Auto) 0.4 Neut # 5.6 Lymph # 1.3 [place] # 0.7 Eos # 0.2 Baso # 0.0 Abs Immat Gran (auto) 0.02 Turbidity < 20 Sodium 145 H Potassium 3.7 Chloride 109 H Carbon Dioxide 25 Anion Gap 11 BUN 36.0 H Creatinine 1.2 GFR Calculation 42 BUN/Creatinine Ratio 30 H Glucose 102 Glucometer 129 Calculated Osmolality 287 H Calcium 9.1 Icterus Index < 2 Specimen Hemolysis < 15 <JuanMonika Thanh - 06/10/17 12:43> Assessment and Plan - Attestation Attestation Narrative: 06/16/17 08:01 Recommendation After examining the patient I agree with the above assessment. I am involved in the formulation of the patient's plan of care. <Nilson Hudson - 06/16/17 08:01> - Assessment and Plan (1) Atrial fibrillation with RVR Current visit: No Status: Acute (2) Essential (primary) hypertension Current visit: No Status: Chronic (3) Mixed hyperlipidemia Current visit: No Status: Acute (4) Normal pressure hydrocephalus Current visit: Yes Status: Chronic (5) Dyspnea Current visit: Yes Status: Acute <Nilson Hudson - 06/16/17 08:01> (1) Atrial fibrillation with RVR Current visit: No Status: Acute Add Cardizem 120mg today to her daily 360mg Cardizem and continue to monitor for bradycardia or pauses. (2) Essential (primary) hypertension Current visit: No Status: Chronic well controlled on current therapy, continue current therapy (3) Mixed hyperlipidemia Current visit: No Status: Acute (4) Normal pressure hydrocephalus Current visit: Yes Status: Chronic <JuanMonika nelson - 06/11/17 12:42> Hospital Course Summary Disclaimer: The visit summary below is not to be considered part of the above Progress Note. <Nilson Hudson - 06/16/17 08:01> The visit summary below is not to be considered part of the above Progress Note. <Monika Martinez - 06/10/17 12:43> Hospital Course: New onset atrial fibrillation with RVR Essential hypertension Hyperlipidemia Normal pressure hydrocephalus - TURN OPERATOR shunt (Dr. Vides) Benign essential tremor Osteo-arthritis Depression Recurrent cystitis Allergic rhinitis Memory deficits 06/09/17 -Hospitalist consultation Agree with admission to rehabilitation unit under the care of Dr. Walton. Continue current medications and telemetry. Blood pressures have been stable. Since admission to IRU, telemetry shows A. fib mostly running lower 100's with nonsustained rates up to 140s with activity. Consider cardiology consult if patient's rates are not controlled or other concerning findings arise. Bowel motivation with senna. Thank you for the consult. We will continue to follow along with you throughout patient's stay. Patient's care to return to Dr. Pankaj Arora on discharge. 06/10/17 Plan Telemetry reviewed and A-fib rate increased 120-140's this morning. Currently on atenolol 100 milligrams, Cardizem 360 milligrams. Spoke with Cardiology team- Will consult for expertise and recommendations for better rate control Did review morning laboratory studies. Sodium is slightly up at 145, however, this has been chronic. Continues on all across twice a day for chronic anticoagulation. Encourage work with PT and OT for ongoing strengthening 06/10/17 Cardiology Add Cardizem 120mg today to her daily 360mg Cardizem and continue to monitor for bradycardia or pauses. Thank you for allowing us to participate in the care of this patient. <Monika Martinez - 06/11/17 12:45> Sepsis Assessment - Evaluation Sepsis screening result: No Definite Risk <Monika Martinez - 06/10/17 12:43>
[2017-06-10] MEDS: SENNOSIDES 8.6 MG TABLET PO SCH (20:38)
[2017-06-10] MEDS: LOSARTAN 50 MG TABLET PO SCH (20:38)
[2017-06-10] MEDS: SALINE FLUSH 10ml SYRINGE IV PRN (20:43)
[2017-06-11] MEDS: OMEPRAZOLE 20 MG CAPSULE PO SCH ×2 (05:15→18:22)
[2017-06-11] MEDS: DiltiaZEM CD 360 MG CAPSULE PO SCH (08:59)
[2017-06-11] MEDS: AMLODIPINE 5 MG TABLET PO SCH (08:59)
[2017-06-11] MEDS: APIXABAN 5 MG TABLET PO SCH ×2 (08:59→20:37)
[2017-06-11] MEDS: ATENOLOL 100 MG TABLET PO SCH (09:00)
--- NOTE | 2017-06-11 10:36 | IRU Progress Note ---
- Subjective/Serverity of Illness Ms. Salguero is cooperative with therapy although not terribly oriented. She says she knows she is in [place] but does not recognize that she is in the hospital. Continues to appear to be in atrial fibrillation. Had a recent spell of more rapid ventricular response and Dr. Hudson was reconsulted. It is not clear if this was symptomatic or not. She is now walking 237 feet with standby assistance with a front-wheeled walker. Unfortunately her cognition assessed that carryover from one day to the next is not great. 1. New onset atrial fibrillation with rapid ventricular response: Patient had another episode of rapid ventricular response. She remains on diltiazem [address] Hudson has been reconsulted 2. Normal pressure hydrocephalus: Her cognition is likely related to the normal pressure hydrocephalus. Unfortunately her memory continues to prevent good carryover from one day to the next. Despite that she is progressing in several areas. 3. Hypertension: Because of her recent onset of atrial fibrillation with rapid ventricular response, her blood pressure response to medications may be variable. She will be monitored for both hypo-and hypertension. Exam Vital Signs: Temperature 98.0 F 06/11/17 08:00 Pulse Rate 101 H 06/11/17 08:00 Respiratory Rate 14 06/11/17 08:00 Blood Pressure 132/70 06/11/17 08:00 Pulse Oximetry 94 06/11/17 08:00 Height/Weight/BMI: Height 1.57 m Weight 75 kg Body Mass Index 29.2 Comments: The patient is awake, alert but not oriented. She is in no acute distress. She is comfortable. Pupils are equal. The neck is supple. Chest: Clear to auscultation bilaterally. Cor: irregular rhythm with systolic murmur. Abd: soft with normo-active bowel sounds. There are no masses, no tenderness and no guarding. Extremities: No edema is noted. No cyanosis is present. Sepsis Assessment - Evaluation Sepsis screening result: No Definite Risk IRU A/P (1) Normal pressure hydrocephalus Current visit: Yes Status: Chronic Her normal pressure hydrocephalus likely has resulted in her dementia. This has decreased carryover from one day to the next. Despite this she is progressing in several areas. Able to ambulate now 237 feet with standby assistance. (2) Atrial fibrillation with RVR Current visit: No Status: Acute Continues to have episodes of rapid ventricular response. Cardiology has been consulted. Remains on Cardizem and metoprolol. (3) Essential (primary) hypertension Current visit: No Status: Chronic Her blood pressures have been well controlled. DVT Prophylaxis: SCD's, Lovenox Resuscitation Status: Full Code - Course Hospital Course: Solomon Walton MD: 06/09/17 11:27 Patient is settling into rehabilitation well. She is cooperative with therapy. She has developed some knee pain. Currently tolerating new medications adequately without lightheadedness. Continues in atrial fibrillation but this is relatively asymptomatic. 06/11/17 10:48 She is cooperative with therapy. Cognition issues limit progress. Able to ambulate better with standby assistance. Continues to have rapid ventricular response from time to time. Cardiology has been consulted. - Interventions to Obtain Goals PT Treatment Plan: Balance/Proprioception, Functional Activities, Manual Therapy , Patient/Family Education, Therapeutic Exercise OT Treatment Plan: ADL (Basic Care), Balance Training, IADL, Pt./Family Education, Ther. Exercise for ADL Goals Progress/Modifications: Time spent with patient and on floor reviewing data and documentin min Barriers to dismissal: Cognition, atrial fibrillation with rapid ventricular response Medical decision-making: Continued assessment is needed to make sure she can tolerate physical therapy in view of her atrial fibrillation with rapid ventricular response. In addition, we are working with cognition issues. Cardiology has been consulted. May need additional medication adjustment. This was also taken into account when we are planning therapy.
--- NOTE | 2017-06-11 12:02 | Progress Note ---
Progress Note: I was called to the patient's room because of report of dyspnea. While she was lying in bed she appeared to be more short of breath. We set her up in the chair and she did much better. She asked he states that she is not short of breath. She does not recall being short of breath. Her lung exam at the present time is unremarkable. Have discussed with the hospitalist service. Right now she appears to be quite stable.
[2017-06-11] MEDS ORDERED: FUROSEMIDE 40 MG/4 ML INJECTION IVP ONE (14:43)
--- NOTE | 2017-06-11 15:09 | Cardiology Progress Note ---
Subjective Principal diagnosis: atrial fibrillation <Monika Martinez - 06/11/17 15:12> Interval history: Devyn is sitting in her room in IRU. She states she doesn't feel very good, that her heart was too fast. Nursing staff reports SOA and 3 pound weight gain. When asked how her breathing is she says "Hard." She denies chest pain, pressure or tightness. <Monika Martinez - 06/11/17 15:12> Exam Vital signs: Temperature 98.3 F 06/16/17 08:00 Pulse Rate 114 H 06/16/17 08:00 Respiratory Rate 16 06/16/17 15:15 Blood Pressure 116/75 06/16/17 08:00 Pulse Oximetry 96 06/16/17 08:00 <GerrinikocliftonNilson - 06/18/17 13:53> Temperature 98.0 F 06/11/17 08:00 Pulse Rate 119 H 06/11/17 08:00 Respiratory Rate 14 06/11/17 08:00 Blood Pressure 132/70 06/11/17 08:00 Pulse Oximetry 94 06/11/17 08:00 <Monika Martinez - 06/11/17 15:12> - Constitutional mild distress, well nourished, cooperative <Monika Martinez 06/11/17 15:12> - Routine HEENT Exam Head: Present: normocephalic <Monika Martinez 06/11/17 15:12> ENT: Present: mucous membranes moist <JuanMonika Law 06/11/17 15:12> - Routine Neck Exam Present: JVD. Absent: carotid bruit <JuanMonika Law 06/11/17 15:12> - Routine Chest/Breast/Axilla Exam Chest wall: Absent: tenderness <JuanMonika Law 06/11/17 15:12> - Routine Respiratory Exam Present: CTA bilaterally. Absent: rales, wheezes, crackles <JuanMonika Law 06/11/17 15:12> - Routine Cardiovascular Exam Present: no murmur, tachycardia, irregular rhythm, JVD <JuanMonika nelson Thanh 06/11 15:12> - Routine Abdominal Exam Present: soft, normoactive bowel sounds <Monika Martinez - 06/11/17 15:12> - Routine Extremities Exam Present: edema <Monika Martinez - 06/11/17 15:12> - Routine Skin Exam Present: intact, dry, warm <Monika Martinez - 06/11/17 15:12> - Routine Neurological Exam Present: alert <Monika Martinez - 06/11/17 15:12> - Routine Psychiatric Exam Present: normal affect <Monika Martinez - 06/11/17 15:12> Assessment and Plan - Assessment and Plan (1) Atrial fibrillation with RVR Status: Acute (2) Essential (primary) hypertension Status: Chronic (3) Mixed hyperlipidemia Status: Acute (4) Normal pressure hydrocephalus Status: Chronic (5) Dyspnea Status: Acute <Nilson Hudson - 06/18/17 13:53> (1) Atrial fibrillation with RVR (2) Essential (primary) hypertension (3) Mixed hyperlipidemia (4) Normal pressure hydrocephalus (5) Dyspnea <Monika Martinez - 06/14/17 17:19> - Attestation Attestation Narrative: 06/18/17 13:53 Recommendation After examining the patient I agree with the above assessment. I am involved in the formulation of the patient's plan of care. <Suzan Hudsonin - 06/18/17 13:53> Sepsis Assessment - Evaluation Sepsis screening result: No Definite Risk <Monika Martinez - 06/11/17 15:12> Hospital Course Summary Disclaimer: The visit summary below is not to be considered part of the above Progress Note. <Nilson Hudson - 06/18/17 13:53> The visit summary below is not to be considered part of the above Progress Note. <Monika Martinez - 06/11/17 15:12> Hospital Course: New onset atrial fibrillation with RVR Essential hypertension Hyperlipidemia Normal pressure hydrocephalus - CLINICAL PROGRAM MANAGER shunt (Dr. Vides) Benign essential tremor Osteo-arthritis Depression Recurrent cystitis Allergic rhinitis Memory deficits 06/09/17 -Hospitalist consultation Agree with admission to rehabilitation unit under the care of Dr. Walton. Continue current medications and telemetry. Blood pressures have been stable. Since admission to IRU, telemetry shows A. fib mostly running lower 100's with nonsustained rates up to 140s with activity. Consider cardiology consult if patient's rates are not controlled or other concerning findings arise. Bowel motivation with senna. Thank you for the consult. We will continue to follow along with you throughout patient's stay. Patient's care to return to Dr. Pankaj Arora on discharge. 06/10/17 Plan Telemetry reviewed and A-fib rate increased 120-140's this morning. Currently on atenolol 100 milligrams, Cardizem 360 milligrams. Spoke with Cardiology team- Will consult for expertise and recommendations for better rate control Did review morning laboratory studies. Sodium is slightly up at 145, however, this has been chronic. Continues on all across twice a day for chronic anticoagulation. Encourage work with PT and OT for ongoing strengthening 06/10/17 Cardiology Add Cardizem 120mg today to her daily 360mg Cardizem and continue to monitor for bradycardia or pauses. Thank you for allowing us to participate in the care of this patient. 06/11/17 15:11 AFIB: still poor rate control at times. Increased Cardizem to 480mg daily. Gave additional 120mg today. Dyspnea: Reports SOA. weight up 3 pounds, agree with diuresis, Lasix 40mg IV ordered by hospitalist. <Monika Martinez - 06/11/17 15:12>
--- NOTE | 2017-06-11 15:45 | XRay Report ---
INDICATION: shortness of breath PROCEDURE: CHEST 2-VIEWS UPRIGHT (PA & LAT) Encounter: Initial COMPARISON: June 04, 2017 FINDINGS: Trace pleural effusions are new. Lungs are otherwise clear. No pneumothorax. Heart size and mediastinal contours are stable. Overlying monitoring leads. Right-sided CARE CONNECTOR shunt. Impression: New trace pleural effusions without evidence of focal pneumonia or overt congestive failure. .
[2017-06-11] MEDS: SALINE FLUSH 10ml SYRINGE IV PRN (15:52)
--- NOTE | 2017-06-11 16:45 | Progress Note ---
Subjective: Devyn was sitting in her chair, visibly short of breath. She was unable to speak more words at a time without dyspnea. She, however, denied feeling short of breath. No CP or palpitations. No abdominal pain or nausea. Mostly, complains of being very tired today - RN stated that she was able to walk well this am but after lunch was taking short, shuffling steps. Objective Vital signs: Temperature 98.0 F 06/11/17 16:00 Pulse Rate 89 06/11/17 16:00 Respiratory Rate 26 H 06/11/17 16:00 Blood Pressure 126/79 06/11/17 16:00 Pulse Oximetry 94 06/11/17 16:00 Rhythm: Atrial Fibrillation with RVR Height/Weight/BMI: Height 1.57 m Weight 75 kg Body Mass Index 29.2 - Constitutional Present: mild distress, well nourished, well developed - Routine HEENT Exam Eye: Absent: conjunctival icterus ENT: Present: oropharynx clear - Routine Respiratory Exam Present: decreased breath sounds - Routine Cardiovascular Exam Present: irregularly irregular - Routine Abdominal Exam Present: soft, normoactive bowel sounds, non distended, non tender - Routine Extremities Exam Present: pulses intact - Routine Skin Exam Present: dry, pallor, warm - Routine Neurological Exam Present: alert, normal speech - Routine Psychiatric Exam Present: normal affect, cooperative Results - Labs CBC & Chem 7: 06/09/17 06:11 06/11/17 15:37 Assessment and Plan (1) Atrial fibrillation with RVR Current visit: No Status: Acute DVT Prophylaxis: Eliquis GI Prophylaxis: other (PPI) Assessment and Plan: Assessment New onset atrial fibrillation with RVR Essential hypertension Hyperlipidemia Normal pressure hydrocephalus - 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 Vides) Benign essential tremor Osteo-arthritis Depression Recurrent cystitis Allergic rhinitis Memory deficits Plan Increasing dyspnea; conversational dyspnea - IV Lasix 40 mg ordered. CXR shows new trace pleural effusions. Monika Martinez APRN has already evaluated the patient today. A-fib - cardiology increased Cardizem to 480 mg daily. Labs - Na still elevated (mild); creatinine increased to 1.3 & BUN 46 - repeat in am; may go up after diuresis. Sepsis Assessment - Evaluation Sepsis screening result: No Definite Risk Hospital Course Summary Disclaimer: The visit summary below is not to be considered part of the above Progress Note. Hospital Course: New onset atrial fibrillation with RVR Essential hypertension Hyperlipidemia Normal pressure hydrocephalus - 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 Vdies) Benign essential tremor Osteo-arthritis Depression Recurrent cystitis Allergic rhinitis Memory deficits 06/09/17 -Hospitalist consultation Agree with admission to rehabilitation unit under the care of Dr. Walton. Continue current medications and telemetry. Blood pressures have been stable. Since admission to IRU, telemetry shows A. fib mostly running lower 100's with nonsustained rates up to 140s with activity. Consider cardiology consult if patient's rates are not controlled or other concerning findings arise. Bowel motivation with senna. Thank you for the consult. We will continue to follow along with you throughout patient's stay. Patient's care to return to Dr. Pankaj Arora on discharge. 06/10/17 Plan Telemetry reviewed and A-fib rate increased 120-140's this morning. Currently on atenolol 100 milligrams, Cardizem 360 milligrams. Spoke with Cardiology team- Will consult for expertise and recommendations for better rate control Did review morning laboratory studies. Sodium is slightly up at 145, however, this has been chronic. Continues on all across twice a day for chronic anticoagulation. Encourage work with PT and OT for ongoing strengthening 06/10/17 Cardiology Add Cardizem 120mg today to her daily 360mg Cardizem and continue to monitor for bradycardia or pauses. Thank you for allowing us to participate in the care of this patient. 06/11/17 15:11 AFIB: still poor rate control at times. Increased Cardizem to 480mg daily. Gave additional 120mg today. Dyspnea: Reports SOA. weight up 3 pounds, agree with diuresis, Lasix 40mg IV ordered by hospitalist. Labs - Na still elevated (mild); creatinine increased to 1.3 & BUN 46 - repeat in am; may go up after diuresis.
[2017-06-11] MEDS ORDERED: FALL RISK - PHARMACY CONSULT MC PRN (18:13)
[2017-06-11] MEDS: SENNOSIDES 8.6 MG TABLET PO SCH (20:38)
[2017-06-11] MEDS: LOSARTAN 50 MG TABLET PO SCH (20:38)
[2017-06-12] MEDS: OMEPRAZOLE 20 MG CAPSULE PO SCH ×2 (06:12→17:40)
[2017-06-12] MEDS: ATENOLOL 100 MG TABLET PO SCH (08:40)
[2017-06-12] MEDS: APIXABAN 5 MG TABLET PO SCH ×2 (08:40→20:27)
[2017-06-12] MEDS: AMLODIPINE 5 MG TABLET PO SCH (08:40)
--- NOTE | 2017-06-12 09:19 | Progress Note ---
Progress Note: Devyn was seen before breakfast. She was sitting in her chair, and denied feeling short of breath whatsoever, but was breathing slightly fast and using accessory muscles. She rested well last night. No cough or chest pain/ palpitations.
--- NOTE | 2017-06-12 09:22 | Progress Note ---
Subjective: Devyn was seen before breakfast. She was sitting in her chair, and denied feeling short of breath whatsoever, but was breathing slightly fast and using accessory muscles. She rested well last night. No cough or chest pain/ palpitations. Objective Vital signs: Temperature 98.5 F 06/12/17 08:00 Pulse Rate 78 06/12/17 08:00 Respiratory Rate 24 06/12/17 08:00 Blood Pressure 134/65 06/12/17 08:00 Pulse Oximetry 94 06/12/17 08:00 Rhythm: Atrial Fibrillation with RVR Height/Weight/BMI: Height 1.57 m Weight 75 kg Body Mass Index 29.2 - Constitutional Present: well nourished, well developed, thin - Routine HEENT Exam ENT: Present: oropharynx clear - Routine Respiratory Exam Present: accessory muscle use, prolonged expiratory phase, diminished air movement (bases) - Routine Cardiovascular Exam Present: murmur, irregularly irregular - Routine Abdominal Exam Present: soft, normoactive bowel sounds, non distended, non tender - Routine Extremities Exam Present: no edema, pulses intact - Routine Skin Exam Present: intact, dry, warm - Routine Neurological Exam Present: alert, normal speech - Routine Psychiatric Exam Present: normal affect, cooperative Results - Labs CBC & Chem 7: 06/09/17 06:11 06/12/17 04:21 Assessment and Plan (1) Atrial fibrillation with RVR Current visit: No Status: Acute Assessment and Plan: Assessment New onset atrial fibrillation with RVR Hypokalemia Essential hypertension Hyperlipidemia Normal pressure hydrocephalus - 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 Vides) Benign essential tremor Osteo-arthritis Depression Recurrent cystitis Allergic rhinitis Memory deficits Plan Pt still appears slightly tachypneic with accessory muscle use and prolonged exp phase, but denies dyspnea. Yesterday's CXR showed trace pleural effusions but no failure. Hypokalemia of 3.2 post-diuresis yesterday - KDur 40 mEq ordered. Na down slightly to 144. Renal function stable. A-fib rate improving with increased Cardizem dose Will discuss with attending. Repeat BMP in am. Sepsis Assessment - Evaluation Sepsis screening result: No Definite Risk Hospital Course Summary Disclaimer: The visit summary below is not to be considered part of the above Progress Note. Hospital Course: New onset atrial fibrillation with RVR Essential hypertension Hyperlipidemia Normal pressure hydrocephalus - 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 Vides) Benign essential tremor Osteo-arthritis Depression Recurrent cystitis Allergic rhinitis Memory deficits 06/09/17 -Hospitalist consultation Agree with admission to rehabilitation unit under the care of Dr. Walton. Continue current medications and telemetry. Blood pressures have been stable. Since admission to IRU, telemetry shows A. fib mostly running lower 100's with nonsustained rates up to 140s with activity. Consider cardiology consult if patient's rates are not controlled or other concerning findings arise. Bowel motivation with senna. Thank you for the consult. We will continue to follow along with you throughout patient's stay. Patient's care to return to Dr. Pankaj Arora on discharge. 06/10/17 Plan Telemetry reviewed and A-fib rate increased 120-140's this morning. Currently on atenolol 100 milligrams, Cardizem 360 milligrams. Spoke with Cardiology team- Will consult for expertise and recommendations for better rate control Did review morning laboratory studies. Sodium is slightly up at 145, however, this has been chronic. Continues on all across twice a day for chronic anticoagulation. Encourage work with PT and OT for ongoing strengthening 06/10/17 Cardiology Add Cardizem 120mg today to her daily 360mg Cardizem and continue to monitor for bradycardia or pauses. Thank you for allowing us to participate in the care of this patient. 06/11/17 15:11 AFIB: still poor rate control at times. Increased Cardizem to 480mg daily. Gave additional 120mg today. Dyspnea: Reports SOA. weight up 3 pounds, agree with diuresis, Lasix 40mg IV ordered by hospitalist. Labs - Na still elevated (mild); creatinine increased to 1.3 & BUN 46 - repeat in am; may go up after diuresis. 06/12/17 09:22 Pt still appears slightly tachypneic with accessory muscle use and prolonged exp phase, but denies dyspnea. Hypokalemia of 3.2 post-diuresis yesterday - KDur 40 mEq ordered. Na down slightly to 144. Renal function stable.
[2017-06-12] MEDS: LOSARTAN 50 MG TABLET PO SCH (20:26)
[2017-06-12] MEDS: SENNOSIDES 8.6 MG TABLET PO SCH (20:26)
[2017-06-12] MEDS: SALINE FLUSH 10ml SYRINGE IV PRN (20:27)
[2017-06-13] MEDS: OMEPRAZOLE 20 MG CAPSULE PO SCH (06:13)
[2017-06-13] MEDS: APIXABAN 5 MG TABLET PO SCH ×2 (09:03→22:21)
[2017-06-13] MEDS: AMLODIPINE 5 MG TABLET PO SCH (09:03)
[2017-06-13] MEDS: ATENOLOL 100 MG TABLET PO SCH (09:03)
[2017-06-13] MEDS ORDERED: FALL RISK - PHARMACY CONSULT MC PRN (15:33)
--- NOTE | 2017-06-13 17:19 | Progress Note ---
Subjective: Devyn is seen today in follow up due to recently reported dyspnea. RN reports pt has continued to be tachypneic. Patient states that she does not feel SOA. Denies cough. RN reports that her O2 sats have been 90-92%. I have asked her to place O2 to see if that will help with respiratory drive. Pt. is watching TV w/o any distress despite increased respiratory rate. Her abdomen appears distended; she denies any abdominal pain. RN reports adequate BM. Objective Vital signs: Temperature 97.9 F 06/13/17 16:00 Pulse Rate 66 06/13/17 16:00 Respiratory Rate 26 H 06/13/17 16:00 Blood Pressure 133/71 06/13/17 16:00 Pulse Oximetry 91 06/13/17 16:00 Rhythm: Atrial Fibrillation with RVR Height/Weight/BMI: Height 1.57 m Weight 76.5 kg Body Mass Index 29.2 - Constitutional Present: mild distress (Tachypneic at rest. ), obese, cooperative - Routine HEENT Exam Head: Present: normocephalic, atraumatic Eye: Present: EOMI, PERRL ENT: Present: mucous membranes dry - Routine Respiratory Exam Present: accessory muscle use, dyspnea, rhonchi (Faint rhonchi posteriorly only left lung. Clear anteriorly. ), distant breath sounds - Routine Cardiovascular Exam Present: RRR, S1, S2, no murmur, irregular rhythm - Routine Abdominal Exam Present: soft, normoactive bowel sounds, non tender, distended - Routine Extremities Exam Present: edema (Some peripheral edema of arms. ), non tender - Routine Musculoskeletal Exam Musculoskeletal: Present: no clubbing or cyanosis, no erythema - Routine Skin Exam Present: intact, dry, warm - Routine Neurological Exam Present: alert - Routine Psychiatric Exam Present: normal affect, cooperative Comments: Confused. Results - Labs CBC & Chem 7: 06/09/17 06:11 06/13/17 04:09 - Impressions CXR 06/11 Impression: New trace pleural effusions without evidence of focal pneumonia or overt congestive failure. Assessment and Plan (1) Atrial fibrillation with RVR Current visit: No Status: Acute DVT Prophylaxis: Eliquis GI Prophylaxis: other Resuscitation Status: Full Code Assessment and Plan: Assessment New onset atrial fibrillation with RVR HFpEF with biatrial enlargement. 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 Vides) Benign essential tremor Osteo-arthritis Depression Recurrent cystitis Allergic rhinitis Memory deficits Plan 06/13/17 *Dyspnea with accessory muscle use. Repeat CXR, PA & LAT- afebrile. Normal CBC with last draw, but several days ago. Repeat CBC today. She is in no distress. Check KUB/Upright and post void bladder scan to R/O abdominal distention causing decrease lung expansion. Will try O2 as her sats are low normal. Try xopenex nebs as well for expansions. Labs appear intravascularly dry- Hold HCTZ. She did receive a dose of IV lasix with good response per RN, but labs don't indicate acute fluid overload. She has been anticoagulated since arrival, very low risk of PE. *Recent Fall, EXECUTIVE VICE PRESIDENT AND CHIEF FINANCIAL OFFICER shunt- CT ok. Follows with neurology. *HTN- BP is well controlled. She is on high dose Cardizem, beta-eleni and Losartan. Monitor HR closely to avoid excessive lowering. *AFib with RVR BB/CCB/Eliquis. *Weakness/deconditioning Continue PT/OT per rehab therapies. Repeat labs in AM for stability. - Time spent with patient 25 - 35 minutes Coordination of Care: >50% of visit spent providing counseling/coordination of care Sepsis Assessment - Evaluation Sepsis screening result: No Definite Risk Hospital Course Summary Disclaimer: The visit summary below is not to be considered part of the above Progress Note. 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 Vides) Benign essential tremor Osteo-arthritis Depression Recurrent cystitis Allergic rhinitis Memory deficits 06/09/17 -Hospitalist consultation Agree with admission to rehabilitation unit under the care of Dr. Walton. Continue current medications and telemetry. Blood pressures have been stable. Since admission to IRU, telemetry shows A. fib mostly running lower 100's with nonsustained rates up to 140s with activity. Consider cardiology consult if patient's rates are not controlled or other concerning findings arise. Bowel motivation with senna. Thank you for the consult. We will continue to follow along with you throughout patient's stay. Patient's care to return to Dr. Pankaj Arora on discharge. 06/10/17 Plan Telemetry reviewed and A-fib rate increased 120-140's this morning. Currently on atenolol 100 milligrams, Cardizem 360 milligrams. Spoke with Cardiology team- Will consult for expertise and recommendations for better rate control Did review morning laboratory studies. Sodium is slightly up at 145, however, this has been chronic. Continues on all across twice a day for chronic anticoagulation. Encourage work with PT and OT for ongoing strengthening 06/10/17 Cardiology Add Cardizem 120mg today to her daily 360mg Cardizem and continue to monitor for bradycardia or pauses. Thank you for allowing us to participate in the care of this patient. 06/11/17 15:11 AFIB: still poor rate control at times. Increased Cardizem to 480mg daily. Gave additional 120mg today. Dyspnea: Reports SOA. weight up 3 pounds, agree with diuresis, Lasix 40mg IV ordered by hospitalist. Labs - Na still elevated (mild); creatinine increased to 1.3 & BUN 46 - repeat in am; may go up after diuresis. 06/12/17 09:22 Pt still appears slightly tachypneic with accessory muscle use and prolonged exp phase, but denies dyspnea. Hypokalemia of 3.2 post-diuresis yesterday - KDur 40 mEq ordered. Na down slightly to 144. Renal function stable. 06/13/17 17:30 *Dyspnea with accessory muscle use. Repeat CXR, PA & LAT- afebrile. Normal CBC with last draw, but several days ago. Repeat CBC today. She is in no distress. Check KUB/Upright and post void bladder scan to R/O abdominal distention causing decrease lung expansion. Will try O2 as her sats are low normal. Try xopenex nebs as well for expansions. Labs appear intravascularly dry- Hold HCTZ. She did receive a dose of IV lasix with good response per RN, but labs don't indicate acute fluid overload. She has been anticoagulated since arrival, very low risk of PE. *Recent Fall, EXECUTIVE VICE PRESIDENT AND CHIEF FINANCIAL OFFICER shunt- CT ok. Follows with neurology. *HTN- BP is well controlled. She is on high dose Cardizem, beta-eleni and Losartan. Monitor HR closely to avoid excessive lowering. *AFib with RVR BB/CCB/Eliquis. *Weakness/deconditioning Continue PT/OT per rehab therapies. Repeat labs in AM for stability.
[2017-06-13] MEDS: LOSARTAN 50 MG TABLET PO SCH (22:20)
[2017-06-13] MEDS: SENNOSIDES 8.6 MG TABLET PO SCH (22:21)
[2017-06-13] MEDS: SALINE FLUSH 10ml SYRINGE IV PRN (22:22)
[2017-06-14] MEDS: OMEPRAZOLE 20 MG CAPSULE PO SCH (06:08)
[2017-06-14] MEDS ORDERED: DiltiaZEM CD 360 MG CAPSULE PO ONE (08:00)
--- NOTE | 2017-06-14 08:32 | XRay Report ---
Indication: Dyspnea Procedure: XR chest 2V: Encounter: Initial Comparison: Chest radiographs 06/11/2017, pulmonary CT angiogram 06/05/2017 Technique: PA and lateral radiographs of the chest were obtained. Findings: Lungs and airways: Low lung volumes. Increased interstitial and hazy alveolar left greater than right opacities.. Pulmonary vascular congestion. Pleura: Small bilateral pleural effusions. No pneumothorax. Heart and mediastinum: The cardiomediastinal silhouette and great vessels appear unchanged with redemonstration of cardiomegaly and aortic atherosclerosis. Osseous structures and soft tissues: No acute osseous abnormality is seen. Postoperative changes of the left humerus. Degenerative disc disease of the visualized spine. Impression: Congestive changes with mild left greater than right interstitial/alveolar edema and small pleural effusions. .
--- NOTE | 2017-06-14 08:33 | XRay Report ---
EXAM: XR KUB w upright DATE: 06/13/2017 12:00 AM Encounter: Initial INDICATION: Abdominal distention COMPARISON: 06/14/2014 Technique: Upright and supine AP abdominal radiographs were obtained. Findings: Non-obstructive bowel gas pattern. Mild to moderate colonic gas and stool. No intraperitoneal free air. No acute osseous abnormality identified. Degenerative spondylosis of the visualized spine. The visualized lung bases demonstrate small pleural effusions with basilar atelectasis. Impression: Mild to moderate colonic gas and stool with a nonobstructive bowel gas pattern. .
[2017-06-14] MEDS: AMLODIPINE 5 MG TABLET PO SCH (08:56)
[2017-06-14] MEDS: ATENOLOL 100 MG TABLET PO SCH (08:57)
--- NOTE | 2017-06-14 09:41 | IRU Progress Note ---
- Subjective/Serverity of Illness Ms. Salguero was evaluated in her room today. She does not appear to be short of breath. Therapist who has walked her this morning said that she was not particularly short of breath. Did have some easy fatigability. She denies any cough or sputum. I have reviewed the extensive notes from the last several days including laboratory results etc. She did receive Lasix 40 mg IV and did have over 1000 cc diuresis. However weight went up if accurate. Chest x-ray did show new pleural effusions and evidence of heart failure. Has been followed by hospitalists as well as cardiology. Denies any chest pain. She does report memory issues which is certainly obvious. From a therapy standpoint, she requires total assistance for lower extremity dressing. She is able to ambulate some 252 feet however. She is cooperative with therapy. Cognition is a significant barrier. Update on medical conditions: 1. New onset atrial fibrillation with rapid ventricular response: Patient had another episode of rapid ventricular response. Cardizem dose has been increased. Continues to be in atrial fibrillation. Ventricular response may be improved. 2. Normal pressure hydrocephalus: Her cognition is likely related to the normal pressure hydrocephalus. She is aware of her poor memory. This is a barrier to her progress. 3. Hypertension: Blood pressures are monitored and are stable. 4. Heart failure: She had evidence of heart failure on the basis of clinical exam (basilar crackles) as well as chest radiograph and weight increase. She received 40 mg of Lasix IV 3 days ago. Symptomatically this helped her. However her weight is actually up. She is being followed by hospitalists as well as cardiology. Today her lungs appear to be clearer. Previous echocardiogram reviewed. Ejection fraction is normal at 65%. Does have LVH and likely a degree of diastolic heart failure. Obviously also made worse by her atrial fibrillation. Exam Vital Signs: Temperature 97.8 F 06/14/17 07:50 Pulse Rate 77 06/14/17 07:50 Respiratory Rate 24 06/14/17 07:50 Blood Pressure 137/81 06/14/17 07:50 Pulse Oximetry 94 06/14/17 07:50 Height/Weight/BMI: Height 1.57 m Weight 76 kg Body Mass Index 29.2 Comments: The patient is awake, alert in no acute distress. She is not oriented. She however, is cooperative. Pupils are equal. The neck is supple. Chest: Clear to auscultation bilaterally. Her previously noted crackles in the bases are significantly improved. May have just a few but not nearly fully her last Wednesday. Cor: irregular rhythm with no gallop, click nor murmur Abd: soft with normo-active bowel sounds. There are no masses, no tenderness and no guarding. Extremities: No edema is noted. There are good pulses in both ankles. No cyanosis is present. Results IRU - Labs Labs: Chest radiograph, KUB, lab work and progress notes of been reviewed. Sepsis Assessment - Evaluation Sepsis screening result: No Definite Risk IRU A/P (1) Normal pressure hydrocephalus Current visit: Yes Status: Chronic Continues to have difficulty with her memory which at least in part is likely due to normal pressure hydrocephalus. No headache. (2) Atrial fibrillation with RVR Current visit: No Status: Acute She continues to have atrial fibrillation with occasional episodes of rapid ventricular response. However she is on a fairly significant dose of Cardizem. (3) Essential (primary) hypertension Current visit: No Status: Chronic (4) Diastolic CHF, acute Current visit: Yes Status: Acute Previous echocardiogram reviewed. Ejection fraction 65%. Does have LVH and likely has element of diastolic heart failure. This is exacerbated by her atrial fibrillation. Her lungs are more clear today. She received Lasix last week. Interestingly, her weight is actually up a bit. We will continue to monitor carefully. She was on Cardizem 480 mg daily for the atrial fibrillation. However this is reduced to 360 mg daily today. Apparently had a pause. DVT Prophylaxis: Eliquis Resuscitation Status: Full Code - Course Hospital Course: Soloomn Walton MD: 06/09/17 11:27 Patient is settling into rehabilitation well. She is cooperative with therapy. She has developed some knee pain. Currently tolerating new medications adequately without lightheadedness. Continues in atrial fibrillation but this is relatively asymptomatic. 06/11/17 10:48 She is cooperative with therapy. Cognition issues limit progress. Able to ambulate better with standby assistance. Continues to have rapid ventricular response from time to time. Cardiology has been consulted. 06/14/17 09:47 She is slowly progressing with therapy. However cognition is a barrier to her progress. She is walking 250 feet. Has an element of diastolic heart failure exacerbated by her atrial fibrillation. Was given Lasix 40 mg 3 days ago. Weight is actually up a bit. However lungs are clear. Diltiazem reduced due to reported 3 second pause. May be in sinus mechanism according to telemetry. However sounded fairly irregular today to me. - Interventions to Obtain Goals PT Treatment Plan: Balance/Proprioception, Functional Activities, Manual Therapy , Patient/Family Education, Therapeutic Exercise OT Treatment Plan: ADL (Basic Care), Balance Training, IADL, Pt./Family Education, Ther. Exercise for ADL Goals Progress/Modifications: Time spent with patient and on floor reviewing data and documentin minutes Barriers to dismissal: Evidence of heart failure, atrial fibrillation with RVR control, cognition, endurance Medical decision-making: We're assessing degree of exercise available in view of the history of diastolic heart failure and atrial fibrillation with rapid ventricular response. Seems to be tolerating therapy reasonably well. However these items and to be balanced. In addition, working with hospitalist and cardiology regarding the issue of diuresis. If she can stay in sinus mechanism, I think her fluid balance weren't to improve as well.
--- NOTE | 2017-06-14 10:06 | Progress Note ---
Subjective: Devyn is seen today in follow up. She is evaluated while ambulating to the dining room. She complains of feeling mildly short of breath with exertion however this resolves at rest. She denies having any pain on exmiantions. Staff report she had a cardiac pause overnight for 3 seconds. Room air sats were in the low 90's, she was placed on oxygen for comfort. Objective Vital signs: Temperature 97.8 F 06/14/17 07:50 Pulse Rate 77 06/14/17 07:50 Respiratory Rate 24 06/14/17 07:50 Blood Pressure 137/81 06/14/17 07:50 Pulse Oximetry 94 06/14/17 07:50 Height/Weight/BMI: Height 1.57 m Weight 76 kg Body Mass Index 29.2 - Constitutional Present: mild distress - Routine HEENT Exam Eye: Present: EOMI ENT: Present: mucous membranes moist - Routine Respiratory Exam Present: crackles, diminished air movement (bases) - Routine Cardiovascular Exam Present: RRR, S1, S2. Absent: murmur - Routine Abdominal Exam Present: soft, normoactive bowel sounds, non distended. Absent: tenderness - Routine Extremities Exam Present: full ROM - Routine Skin Exam Present: intact, dry, warm - Routine Neurological Exam Present: alert, CN II-XII intact, moving all extremities - Routine Psychiatric Exam Present: normal affect, cooperative Results - Labs CBC & Chem 7: 06/14/17 03:37 06/14/17 03:37 Assessment and Plan (1) Atrial fibrillation with RVR Current visit: No Status: Acute Assessment and Plan: Assessment New onset atrial fibrillation with RVR HFpEF with biatrial enlargement. Hypokalemia Essential hypertension Hyperlipidemia Normal pressure hydrocephalus - C[employer]IL [employer]INEER shunt (Dr. Vides) Benign essential tremor Osteo-arthritis Depression Recurrent cystitis Allergic rhinitis Memory deficits Plan 06/13/17 Dyspnea- Have asked Cardiology to see her again today. She could benefit from increased Diuresis. Changed HCTZ for Chlorthalidone 25 daily. Monitor urinary output and daily weight Recommendations by Cardiology regarding cardizem dosing. Currently on 480 however had a 3 second pause overnight. Placed on hold currently. Chest x-ray from yesterday did reveal small pleural effusions Increase aggressive bowel motivation. Noted increase in LFTs. Recheck labs in the am. Continue PT/OT per rehab therapies. Sepsis Assessment - Evaluation Sepsis screening result: No Definite Risk Hospital Course Summary Disclaimer: The visit summary below is not to be considered part of the above Progress Note. Hospital Course: New onset atrial fibrillation with RVR Essential hypertension Hyperlipidemia Normal pressure hydrocephalus - CIVIL ENGINEER shunt (Dr. Vides) Benign essential tremor Osteo-arthritis Depression Recurrent cystitis Allergic rhinitis Memory deficits 06/09/17 -Hospitalist consultation Agree with admission to rehabilitation unit under the care of Dr. Walton. Continue current medications and telemetry. Blood pressures have been stable. Since admission to IRU, telemetry shows A. fib mostly running lower 100's with nonsustained rates up to 140s with activity. Consider cardiology consult if patient's rates are not controlled or other concerning findings arise. Bowel motivation with senna. Thank you for the consult. We will continue to follow along with you throughout patient's stay. Patient's care to return to Dr. Pankaj Arora on discharge. 06/10/17 Plan Telemetry reviewed and A-fib rate increased 120-140's this morning. Currently on atenolol 100 milligrams, Cardizem 360 milligrams. Spoke with Cardiology team- Will consult for expertise and recommendations for better rate control Did review morning laboratory studies. Sodium is slightly up at 145, however, this has been chronic. Continues on all across twice a day for chronic anticoagulation. Encourage work with PT and OT for ongoing strengthening 06/10/17 Cardiology Add Cardizem 120mg today to her daily 360mg Cardizem and continue to monitor for bradycardia or pauses. Thank you for allowing us to participate in the care of this patient. 06/11/17 15:11 AFIB: still poor rate control at times. Increased Cardizem to 480mg daily. Gave additional 120mg today. Dyspnea: Reports SOA. weight up 3 pounds, agree with diuresis, Lasix 40mg IV ordered by hospitalist. Labs - Na still elevated (mild); creatinine increased to 1.3 & BUN 46 - repeat in am; may go up after diuresis. 06/12/17 09:22 Pt still appears slightly tachypneic with accessory muscle use and prolonged exp phase, but denies dyspnea. Hypokalemia of 3.2 post-diuresis yesterday - KDur 40 mEq ordered. Na down slightly to 144. Renal function stable. 06/13/17 17:30 *Dyspnea with accessory muscle use. Repeat CXR, PA & LAT- afebrile. Normal CBC with last draw, but several days ago. Repeat CBC today. She is in no distress. Check KUB/Upright and post void bladder scan to R/O abdominal distention causing decrease lung expansion. Will try O2 as her sats are low normal. Try xopenex nebs as well for expansions. Labs appear intravascularly dry- Hold HCTZ. She did receive a dose of IV lasix with good response per RN, but labs don't indicate acute fluid overload. She has been anticoagulated since arrival, very low risk of PE. *Recent Fall, CIVIL ENGINEER shunt- CT ok. Follows with neurology. *HTN- BP is well controlled. She is on high dose Cardizem, beta-eleni and Losartan. Monitor HR closely to avoid excessive lowering. *AFib with RVR BB/CCB/Eliquis. *Weakness/deconditioning Continue PT/OT per rehab therapies. Repeat labs in AM for stability. Plan 06/13/17 Dyspnea- Have asked Cardiology to see her again today. She could benefit from increased Diuresis. Changed HCTZ for Chlorthalidone 25 daily. Monitor urinary output and daily weight Recommendations by Cardiology regarding cardizem dosing. Currently on 480 however had a 3 second pause overnight. Placed on hold currently. Chest x-ray from yesterday did reveal small pleural effusions Increase aggressive bowel motivation. Noted increase in LFTs. Recheck labs in the am. Continue PT/OT per rehab therapies.
[2017-06-14] MEDS: CHLORTHALIDONE 25 MG TABLET PO SCH (12:13)
--- NOTE | 2017-06-14 17:14 | Cardiology Progress Note ---
Subjective Principal diagnosis: atrial fibrillation <Monika Martinez Thanh - 06/14/17 17:18> Interval history: Devyn is seen in follow up for AFib RVR. She is laying in bed and is quite short of breath when she tries to speak. Nursing reported 3 second pause early this morning, Cardizem reduced to 360mg daily. She denies chest pain, pressure or tightness. <Monika Martinez - 06/14/17 17:18> Exam Vital signs: Temperature 98.3 F 06/16/17 08:00 Pulse Rate 114 H 06/16/17 08:00 Respiratory Rate 16 06/16/17 15:15 Blood Pressure 116/75 06/16/17 08:00 Pulse Oximetry 96 06/16/17 08:00 <Nilson Hudson - 06/18/17 13:53> Temperature 98 F 06/14/17 15:00 Pulse Rate 64 06/14/17 15:00 Respiratory Rate 18 06/14/17 15:22 Blood Pressure 128/66 06/14/17 15:00 Pulse Oximetry 89 L 06/14/17 15:22 <JuanMonika - 06/14/17 17:18> - Constitutional mild distress, well nourished, well developed, cooperative <JuanMonika nelson 06/14/17 17:18> - Routine HEENT Exam Head: Present: normocephalic <JuanMonika Law - 06/14/17 17:18> ENT: Present: mucous membranes moist <UjanMonika nelson Thanh 06/14/17 17:18> - Routine Neck Exam Present: JVD. Absent: carotid bruit <JuanMonika nelson Thanh 06/14/17 17:18> - Routine Chest/Breast/Axilla Exam Chest wall: Absent: tenderness <JuanMonika nelson Thanh 06/14/17 17:18> - Routine Respiratory Exam Present: CTA bilaterally, rales (bibasilar) <Monika Martinez Thanh 06/14/17 17:18> - Routine Cardiovascular Exam Present: irregular rhythm, JVD <Monika Martinez 06/14/17 17:18> - Routine Abdominal Exam Present: soft, normoactive bowel sounds <Monika Martinez 06/14/17 17:18> - Routine Extremities Exam Present: no edema <Monika Martinez - 06/14/17 17:18> - Routine Skin Exam Present: intact, dry, warm <Monika Martinez - 06/14/17 17:18> - Routine Neurological Exam Present: alert <Monika Martinez - 06/14/17 17:18> - Routine Psychiatric Exam Present: normal affect <Monika Martinez - 06/14/17 17:18> - Additional findings Additional findings: Laboratory Results - last 48 hr 06/13/17 06/14/17 06/14/17 04:09 03:37 03:37 WBC 9.2 RBC 3.32 L Hgb 10.2 L Hct 30.6 L MCV 92.2 MCH 30.7 MCHC 33.3 RDW Std Deviation 47.5 Plt Count 163 MPV 10.0 Immature Gran % (Auto) 0.8 H Neut % (Auto) 75.0 H Lymph % (Auto) 11.5 L [place] % (Auto) 10.4 H Eos % (Auto) 2.1 Baso % (Auto) 0.2 Neut # 6.9 Lymph # 1.1 [place] # 1.0 H Eos # 0.2 Baso # 0.0 Abs Immat Gran (auto) 0.07 H Turbidity < 20 < 20 Sodium 145 H 145 H Potassium 4.0 D 3.8 Chloride 110 H 110 H Carbon Dioxide 25 25 Anion Gap 10 10 BUN 50.0 H 42.0 H Creatinine 1.4 H D 1.2 D GFR Calculation 35 42 BUN/Creatinine Ratio 36 H 35 H Glucose 129 H 114 H Calculated Osmolality 294 H 291 H Calcium 8.7 8.5 Magnesium 2.0 Total Bilirubin 0.90 Icterus Index < 2 < 2 AST 70 H ALT 156 H Alkaline Phosphatase 182 H B-Natriuretic Peptide 4850 H Total Protein 6.1 L Albumin 3.5 Globulin 2.6 Albumin/Globulin Ratio 1.3 Specimen Hemolysis < 15 < 15 Acetaminophen (Tylenol) 650 mg PO Q6H PRN PRN Reason: Pain Last Admin: 06/09/17 12:06 Dose: 650 mg Amlodipine Besylate (Norvasc) 5 mg PO DAILY [facility] Last Admin: 06/14/17 08:56 Dose: 5 mg Apixaban (Eliquis) 5 mg PO BID [facility] Last Admin: 06/13/17 22:21 Dose: 5 mg Atenolol (Tenormin) 100 mg PO DAILY [facility] Last Admin: 06/14/17 08:57 Dose: 100 mg Chlorthalidone (Hygroton) 25 mg PO WB [facility] Last Admin: 06/14/17 12:13 Dose: 25 mg Diltiazem HCl (Cardizem Cd) 480 mg PO DAILY [facility] Last Admin: 06/13/17 09:03 Dose: 480 mg Diltiazem HCl (Cardizem Cd) 360 mg PO DAILY [facility] Furosemide (Lasix) 40 mg IVP Q12HR [facility] Levalbuterol HCl (Xopenex 1.25mg/3ml) 1.25 mg AEROSOL RTTID [facility] Last Admin: 06/13/17 19:21 Dose: 1.25 mg Losartan Potassium (Cozaar) 50 mg PO HS [facility] Last Admin: 06/13/17 22:20 Dose: 50 mg Omeprazole (Prilosec) 20 mg PO ACB [facility] Last Admin: 06/14/17 06:08 Dose: 20 mg Ondansetron HCl (Zofran) 8 mg IVP Q6H PRN PRN Reason: Nausea Senna (Senna Lax) 17.2 mg PO HS [facility] Last Admin: 06/13/17 22:21 Dose: 17.2 mg Sodium Chloride (Iv Flush) 10 - 80 ml IV PRN PRN PRN Reason: Flushing Last Admin: 06/13/17 22:22 Dose: 10 ml Date of Exam: 06/13/17 Ordering Provider: Simran Isabel APRN Type of Exam(s): XR chest 2V Reason for Exam(s): Dyspnea Indication: Dyspnea Procedure: XR chest 2V: Encounter: Initial Comparison: Chest radiographs 06/11/2017, pulmonary CT angiogram 06/05/2017 Technique: PA and lateral radiographs of the chest were obtained. Findings: Lungs and airways: Low lung volumes. Increased interstitial and hazy alveolar left greater than right opacities.. Pulmonary vascular congestion. Pleura: Small bilateral pleural effusions. No pneumothorax. Heart and mediastinum: The cardiomediastinal silhouette and great vessels appear unchanged with redemonstration of cardiomegaly and aortic atherosclerosis. Osseous structures and soft tissues: No acute osseous abnormality is seen. Postoperative changes of the left humerus. Degenerative disc disease of the visualized spine. Impression: Congestive changes with mild left greater than right interstitial/alveolar edema and small pleural effusions. Date of Exam: 06/13/17 Ordering Provider: Simran Isabel APRN Type of Exam(s): XR KUB w upright Reason for Exam(s): Abdominal distention EXAM: XR KUB w upright DATE: 06/13/2017 12:00 AM Encounter: Initial INDICATION: Abdominal distention COMPARISON: 06/14/2014 Technique: Upright and supine AP abdominal radiographs were obtained. Findings: Non-obstructive bowel gas pattern. Mild to moderate colonic gas and stool. No intraperitoneal free air. No acute osseous abnormality identified. Degenerative spondylosis of the visualized spine. The visualized lung bases demonstrate small pleural effusions with basilar atelectasis. Impression: Mild to moderate colonic gas and stool with a nonobstructive bowel gas pattern. <Monika Martinez - 06/14/17 17:18> Assessment and Plan - Assessment and Plan (1) Atrial fibrillation with RVR Status: Acute (2) Essential (primary) hypertension Status: Chronic (3) Mixed hyperlipidemia Status: Acute (4) Normal pressure hydrocephalus Status: Chronic (5) Dyspnea Status: Acute <Nilson Hudson - 06/18/17 13:53> (1) Atrial fibrillation with RVR (2) Essential (primary) hypertension (3) Mixed hyperlipidemia (4) Normal pressure hydrocephalus (5) Dyspnea <Monika Martinez - 06/14/17 17:10> - Attestation Attestation Narrative: 06/18/17 13:53 Recommendation After examining the patient I agree with the above assessment. I am involved in the formulation of the patient's plan of care. <Nilson Hudson - 06/18/17 13:53> Sepsis Assessment - Evaluation Sepsis screening result: No Definite Risk <Monika Martinez - 06/14/17 17:18> Hospital Course Summary Disclaimer: The visit summary below is not to be considered part of the above Progress Note. <Nilson Hudson - 06/18/17 13:53> The visit summary below is not to be considered part of the above Progress Note. <Monika Martinez - 06/14/17 17:18> Hospital Course: New onset atrial fibrillation with RVR Essential hypertension Hyperlipidemia Normal pressure hydrocephalus - PHYSICAL THERAPY AID shunt (Dr. Vides) Benign essential tremor Osteo-arthritis Depression Recurrent cystitis Allergic rhinitis Memory deficits 06/09/17 -Hospitalist consultation Agree with admission to rehabilitation unit under the care of Dr. Walton. Continue current medications and telemetry. Blood pressures have been stable. Since admission to IRU, telemetry shows A. fib mostly running lower 100's with nonsustained rates up to 140s with activity. Consider cardiology consult if patient's rates are not controlled or other concerning findings arise. Bowel motivation with senna. Thank you for the consult. We will continue to follow along with you throughout patient's stay. Patient's care to return to Dr. Pankaj Arora on discharge. 06/10/17 Plan Telemetry reviewed and A-fib rate increased 120-140's this morning. Currently on atenolol 100 milligrams, Cardizem 360 milligrams. Spoke with Cardiology team- Will consult for expertise and recommendations for better rate control Did review morning laboratory studies. Sodium is slightly up at 145, however, this has been chronic. Continues on all across twice a day for chronic anticoagulation. Encourage work with PT and OT for ongoing strengthening 06/10/17 Cardiology Add Cardizem 120mg today to her daily 360mg Cardizem and continue to monitor for bradycardia or pauses. Thank you for allowing us to participate in the care of this patient. 06/11/17 15:11 AFIB: still poor rate control at times. Increased Cardizem to 480mg daily. Gave additional 120mg today. Dyspnea: Reports SOA. weight up 3 pounds, agree with diuresis, Lasix 40mg IV ordered by hospitalist. Labs - Na still elevated (mild); creatinine increased to 1.3 & BUN 46 - repeat in am; may go up after diuresis. 06/12/17 09:22 Pt still appears slightly tachypneic with accessory muscle use and prolonged exp phase, but denies dyspnea. Hypokalemia of 3.2 post-diuresis yesterday - KDur 40 mEq ordered. Na down slightly to 144. Renal function stable. 06/13/17 17:30 *Dyspnea with accessory muscle use. Repeat CXR, PA & LAT- afebrile. Normal CBC with last draw, but several days ago. Repeat CBC today. She is in no distress. Check KUB/Upright and post void bladder scan to R/O abdominal distention causing decrease lung expansion. Will try O2 as her sats are low normal. Try xopenex nebs as well for expansions. Labs appear intravascularly dry- Hold HCTZ. She did receive a dose of IV lasix with good response per RN, but labs don't indicate acute fluid overload. She has been anticoagulated since arrival, very low risk of PE. *Recent Fall, PHYSICAL THERAPY AID shunt- CT ok. Follows with neurology. *HTN- BP is well controlled. She is on high dose Cardizem, beta-eleni and Losartan. Monitor HR closely to avoid excessive lowering. *AFib with RVR BB/CCB/Eliquis. *Weakness/deconditioning Continue PT/OT per rehab therapies. Repeat labs in AM for stability. Plan 06/13/17 Dyspnea- Have asked Cardiology to see her again today. She could benefit from increased Diuresis. Changed HCTZ for Chlorthalidone 25 daily. Monitor urinary output and daily weight Recommendations by Cardiology regarding cardizem dosing. Currently on 480 however had a 3 second pause overnight. Placed on hold currently. Chest x-ray from yesterday did reveal small pleural effusions Increase aggressive bowel motivation. Noted increase in LFTs. Recheck labs in the am. Continue PT/OT per rehab therapies. 06/14/17 Cardiology AFIB: had 3 second pause, decrease Cardizem to 360mg daily. Dyspneic, tachypneic. Reports SOA. Lasix 40mg IV Q12h for diuresis. <Monika Martinez - 06/14/17 17:18>
[2017-06-14] MEDS ORDERED: FUROSEMIDE 40 MG/4 ML INJECTION IVP SCH (18:00)
[2017-06-14] MEDS: SALINE FLUSH 10ml SYRINGE IV PRN ×2 (18:06→20:54)
[2017-06-14] MEDS: LOSARTAN 50 MG TABLET PO SCH (20:52)
[2017-06-14] MEDS: SENNOSIDES 8.6 MG TABLET PO SCH (20:52)
[2017-06-15] MEDS: OMEPRAZOLE 20 MG CAPSULE PO SCH ×2 (05:23→19:37)
[2017-06-15] MEDS: FUROSEMIDE 40 MG/4 ML INJECTION IVP SCH ×2 (05:34→14:52)
[2017-06-15] MEDS: SALINE FLUSH 10ml SYRINGE IV PRN ×2 (05:35→21:03)
[2017-06-15] MEDS ORDERED: FALL RISK - PHARMACY CONSULT MC PRN (08:05)
[2017-06-15] MEDS: AMLODIPINE 5 MG TABLET PO SCH (08:32)
[2017-06-15] MEDS: DiltiaZEM CD 360 MG CAPSULE PO SCH (08:33)
[2017-06-15] MEDS: ATENOLOL 100 MG TABLET PO SCH (08:33)
[2017-06-15] MEDS: CHLORTHALIDONE 25 MG TABLET PO SCH (08:38)
--- NOTE | 2017-06-15 10:47 | IRU Progress Note ---
- Subjective/Serverity of Illness Her memory continues to be a significant roadblock to progress. She is able to ambulate some turn 50 feet. She requires maximal assistance for lower extremity dressing. In addition to her memory, her shortness of breath is an impediment to dismissal. She has been seen by cardiology. Was increased on her Lasix to twice daily intravenously. Reviewed telemetry strips. She is in and out of atrial fibrillation/flutter. Sometimes she is in sinus mechanism with PACs. Update on medical issues as follows: 1. New onset atrial fibrillation with rapid ventricular response: Cardizem was decreased due to a 3 second positive. Telemetry strips indicate that she is in an out of sinus mechanism. 2. Normal pressure hydrocephalus: Her cognition is likely related to the normal pressure hydrocephalus. She is aware of her poor memory. This is a barrier to her progress. 3. Hypertension: Blood pressures are monitored and are stable. 4. Heart failure: She had evidence of heart failure on the basis of clinical exam (basilar crackles) as well as chest radiograph and weight increase. She received 40 mg of Lasix IV 3 days ago. Symptomatically this helped her. However her weight is actually up. She is being followed by hospitalists as well as cardiology. Today her lungs appear to be clearer. Previous echocardiogram reviewed. Ejection fraction is normal at 65%. Does have LVH and likely a degree of diastolic heart failure. Obviously also made worse by her atrial fibrillation. She is on Lasix twice daily IV. Continues to experience shortness of breath. Exam Vital Signs: Temperature 98 F 06/15/17 08:00 Pulse Rate 103 H 06/15/17 08:03 Respiratory Rate 16 06/15/17 09:27 Blood Pressure 134/78 06/15/17 08:00 Pulse Oximetry 94 06/15/17 09:27 Height/Weight/BMI: Height 1.57 m Weight 76 kg Body Mass Index 29.2 Comments: The patient is awake, alert and oriented and in no acute distress. She clearly has poor memory. Pupils are equal. The neck is supple. Chest: This have basilar crackles. Cor: irregular rhythm with no gallop, click nor murmur Abd: soft with normo-active bowel sounds. There are no masses, no tenderness and no guarding. Extremities: No edema is noted. There are good pulses in both ankles. No cyanosis is present. Results IRU - Labs Labs: Review telemetry strips as well as other progress notes. Sepsis Assessment - Evaluation Sepsis screening result: No Definite Risk IRU A/P (1) Normal pressure hydrocephalus Current visit: Yes Status: Chronic Memory continues to be an issue. She is ambulating reasonably well however. (2) Atrial fibrillation with RVR Current visit: No Status: Acute Has intermittent episodes of sinus mechanism. Cardizem was decreased. Recently had a 3 second cause which led to the decrease in Cardizem. (3) Essential (primary) hypertension Current visit: No Status: Chronic (4) Diastolic CHF, acute Current visit: Yes Status: Acute Has evidence of fluid excess. Receiving intravenous Lasix. Weight remained stable. She does have some dyspnea with activity. DVT Prophylaxis: Eliquis Resuscitation Status: Full Code - Course Hospital Course: Solomon Walton MD: 06/09/17 11:27 Patient is settling into rehabilitation well. She is cooperative with therapy. She has developed some knee pain. Currently tolerating new medications adequately without lightheadedness. Continues in atrial fibrillation but this is relatively asymptomatic. 06/11/17 10:48 She is cooperative with therapy. Cognition issues limit progress. Able to ambulate better with standby assistance. Continues to have rapid ventricular response from time to time. Cardiology has been consulted. 06/14/17 09:47 She is slowly progressing with therapy. However cognition is a barrier to her progress. She is walking 250 feet. Has an element of diastolic heart failure exacerbated by her atrial fibrillation. Was given Lasix 40 mg 3 days ago. Weight is actually up a bit. However lungs are clear. Diltiazem reduced due to reported 3 second pause. May be in sinus mechanism according to telemetry. However sounded fairly irregular today to me. 06/15/17 10:48 Patient continues to be followed by hospitalists and cardiology. Telemetry strips do reveal occasional episodes of sinus mechanism with PACs. She does have shortness of breath with activity. Does have a few crackles in her lungs today. She is ambulate reasonably well. Requires maximal assistance for lower extremity dressing. - Interventions to Obtain Goals PT Treatment Plan: Balance/Proprioception, Functional Activities, Manual Therapy , Patient/Family Education, Therapeutic Exercise OT Treatment Plan: ADL (Basic Care), Balance Training, IADL, Pt./Family Education, Ther. Exercise for ADL Goals Progress/Modifications: Time spent with patient and on floor reviewing data and documentin m inutes Barriers to dismissal: Cognition, atrial fibrillation with rapid ventricular response, fluid excess. Medical decision-making: We are balancing benefits of therapy with her shortness of breath and evidence of fluid excess. In addition, we are monitoring her cardiac and respiratory status.
--- NOTE | 2017-06-15 11:18 | Cardiology Progress Note ---
Subjective Principal diagnosis: atrial fibrillation <Monika Martinez - 06/15/17 11:18> Interval history: Devyn is seen in follow up for atrial fibrillation. <Monika Martinez 06/15/17 11:18> Exam Vital signs: Temperature 98.3 F 06/16/17 08:00 Pulse Rate 114 H 06/16/17 08:00 Respiratory Rate 16 06/16/17 15:15 Blood Pressure 116/75 06/16/17 08:00 Pulse Oximetry 96 06/16/17 08:00 <Nilson Hudson - 06/18/17 14:05> Temperature 98 F 06/15/17 08:00 Pulse Rate 103 H 06/15/17 08:03 Respiratory Rate 16 06/15/17 09:27 Blood Pressure 134/78 06/15/17 08:00 Pulse Oximetry 94 06/15/17 09:27 <Monika Martinez 06/15/17 11:18> - Constitutional no acute distress, cooperative <Monika Martinez 06/15/17 11:45> - Routine HEENT Exam Head: Present: normocephalic <Monika Martinez 06/15/17 11:45> ENT: Present: mucous membranes moist <Monika Martinez 06/15/17 11:45> - Routine Neck Exam Absent: JVD, carotid bruit <Monika Martinez 06/15/17 11:45> - Routine Chest/Breast/Axilla Exam Chest wall: Absent: tenderness <Monika Martinez 06/15/17 11:45> - Routine Respiratory Exam Present: CTA bilaterally. Absent: rales, crackles <Monika Martinez 06/15/17 11:45> - Routine Cardiovascular Exam Present: irregularly irregular. Absent: JVD <Monika Martinez 06/15/17 11:45> - Routine Abdominal Exam Present: soft, normoactive bowel sounds <Monika Martinez 06/15/17 11:45> - Routine Extremities Exam Present: no edema <Monika Martinez 06/15/17 11:45> - Routine Skin Exam Present: intact, dry, warm <Monika Martinez 06/15/17 11:45> - Routine Neurological Exam Present: alert, oriented X3 <Monika Martinez - 06/15/17 11:45> - Routine Psychiatric Exam Present: normal affect <Monika Martinez M - 06/15/17 11:45> - Additional findings Additional findings: Laboratory Results - last 24 hr 06/15/17 04:19 Turbidity < 20 Sodium 143 Potassium 3.9 Chloride 107 Carbon Dioxide 26 Anion Gap 10 BUN 47.0 H Creatinine 1.4 H D GFR Calculation 35 BUN/Creatinine Ratio 34 H Glucose 108 Calculated Osmolality 288 H Calcium 8.5 Total Bilirubin 0.50 Icterus Index < 2 AST 39 H ALT 116 H Alkaline Phosphatase 151 H Total Protein 5.7 L Albumin 3.3 L Globulin 2.4 Albumin/Globulin Ratio 1.4 Specimen Hemolysis < 15 Acetaminophen (Tylenol) 650 mg PO Q6H PRN PRN Reason: Pain Last Admin: 06/09/17 12:06 Dose: 650 mg Amlodipine Besylate (Norvasc) 5 mg PO DAILY [facility] Last Admin: 06/15/17 08:32 Dose: 5 mg Apixaban (Eliquis) 5 mg PO BID [facility] Last Admin: 06/13/17 22:21 Dose: 5 mg Atenolol (Tenormin) 100 mg PO DAILY [facility] Last Admin: 06/15/17 08:33 Dose: 100 mg Chlorthalidone (Hygroton) 25 mg PO WB [facility] Last Admin: 06/15/17 08:38 Dose: 25 mg Diltiazem HCl (Cardizem Cd) 360 mg PO DAILY [facility] Last Admin: 06/15/17 08:33 Dose: 360 mg Furosemide (Lasix) 40 mg IVP 0600,1400 [facility] Last Admin: 06/15/17 05:34 Dose: 40 mg Levalbuterol HCl (Xopenex 1.25mg/3ml) 1.25 mg AEROSOL RTTID [facility] Last Admin: 06/15/17 09:24 Dose: 1.25 mg Losartan Potassium (Cozaar) 50 mg PO HS [facility] Last Admin: 06/14/17 20:52 Dose: 50 mg Omeprazole (Prilosec) 20 mg PO ACB [facility] Last Admin: 06/15/17 05:23 Dose: 20 mg Ondansetron HCl (Zofran) 8 mg IVP Q6H PRN PRN Reason: Nausea Senna (Senna Lax) 17.2 mg PO HS [place] Last Admin: 06/14/17 20:52 Dose: 17.2 mg Sodium Chloride (Iv Flush) 10 - 80 ml IV PRN PRN PRN Reason: Flushing Last Admin: 06/15/17 05:35 Dose: 30 ml <Monika Martinez - 06/15/17 11:18> Assessment and Plan - Assessment and Plan (1) Atrial fibrillation with RVR Status: Acute (2) Essential (primary) hypertension Status: Chronic (3) Mixed hyperlipidemia Status: Acute (4) Normal pressure hydrocephalus Status: Chronic (5) Dyspnea Status: Acute <Nilson Hudson - 06/18/17 14:05> (1) Atrial fibrillation with RVR Status: Acute (2) Essential (primary) hypertension Status: Chronic (3) Mixed hyperlipidemia Status: Acute (4) Normal pressure hydrocephalus Status: Chronic (5) Dyspnea Status: Acute improved with diuresis. Change Lasix to 40mg PO BID today <Monika Martinez - 06/16/17 13:17> - Attestation Attestation Narrative: 06/18/17 14:05 Recommendation After examining the patient I agree with the above assessment. I am involved in the formulation of the patient's plan of care. <Nilson Hudson - 06/18/17 14:05> Sepsis Assessment - Evaluation Sepsis screening result: No Definite Risk <Monika Martinez - 06/15/17 11:18> Hospital Course Summary Disclaimer: The visit summary below is not to be considered part of the above Progress Note. <Nilson Hudson - 06/18/17 14:05> The visit summary below is not to be considered part of the above Progress Note. <Monika Martinez - 06/15/17 11:18> Hospital Course: New onset atrial fibrillation with RVR Essential hypertension Hyperlipidemia Normal pressure hydrocephalus - [employer] shunt (Dr. Vides) Benign essential tremor Osteo-arthritis Depression Recurrent cystitis Allergic rhinitis Memory deficits 06/09/17 -Hospitalist consultation Agree with admission to rehabilitation unit under the care of Dr. Walton. Continue current medications and telemetry. Blood pressures have been stable. Since admission to IRU, telemetry shows A. fib mostly running lower 100's with nonsustained rates up to 140s with activity. Consider cardiology consult if patient's rates are not controlled or other concerning findings arise. Bowel motivation with senna. Thank you for the consult. We will continue to follow along with you throughout patient's stay. Patient's care to return to Dr. Pankaj Arora on discharge. 06/10/17 Plan Telemetry reviewed and A-fib rate increased 120-140's this morning. Currently on atenolol 100 milligrams, Cardizem 360 milligrams. Spoke with Cardiology team- Will consult for expertise and recommendations for better rate control Did review morning laboratory studies. Sodium is slightly up at 145, however, this has been chronic. Continues on all across twice a day for chronic anticoagulation. Encourage work with PT and OT for ongoing strengthening 06/10/17 Cardiology Add Cardizem 120mg today to her daily 360mg Cardizem and continue to monitor for bradycardia or pauses. Thank you for allowing us to participate in the care of this patient. 06/11/17 15:11 AFIB: still poor rate control at times. Increased Cardizem to 480mg daily. Gave additional 120mg today. Dyspnea: Reports SOA. weight up 3 pounds, agree with diuresis, Lasix 40mg IV ordered by hospitalist. 06/15/17 improved with diuresis. Change Lasix to 40mg PO BID today <Monika Martinez - 06/16/17 13:19>
--- NOTE | 2017-06-15 14:37 | IRU Team Meeting ---
IRU Team Meeting - Nursing Vital Signs: Vital Signs - 24 hr 06/14/17 15:00 06/14/17 15:22 06/14/17 16:00 Temperature 98 F Pulse Rate 64 62 Respiratory Rate 28 H 18 Blood Pressure 128/66 Pulse Oximetry 92 89 L 06/14/17 19:32 06/14/17 20:33 06/15/17 00:00 Temperature 98.4 F Pulse Rate 62 65 Respiratory Rate 16 20 Blood Pressure 113/57 Pulse Oximetry 94 06/15/17 00:20 06/15/17 08:00 06/15/17 08:03 Temperature 98 F Pulse Rate 66 84 103 H Respiratory Rate 28 H 16 Blood Pressure 134/78 Pulse Oximetry 94 97 06/15/17 09:27 Temperature Pulse Rate Respiratory Rate 16 Blood Pressure Pulse Oximetry 94 Current Medications: Acetaminophen (Tylenol) 650 mg PO Q6H PRN PRN Reason: Pain Last Admin: 06/09/17 12:06 Dose: 650 mg Amlodipine Besylate (Norvasc) 5 mg PO DAILY [facility] Last Admin: 06/15/17 08:32 Dose: 5 mg Apixaban (Eliquis) 5 mg PO BID [facility] Last Admin: 06/13/17 22:21 Dose: 5 mg Atenolol (Tenormin) 100 mg PO DAILY [facility] Last Admin: 06/15/17 08:33 Dose: 100 mg Chlorthalidone (Hygroton) 25 mg PO WB [facility] Last Admin: 06/15/17 08:38 Dose: 25 mg Diltiazem HCl (Cardizem Cd) 360 mg PO DAILY [facility] Last Admin: 06/15/17 08:33 Dose: 360 mg Furosemide (Lasix) 40 mg IVP 0600,1400 [facility] Last Admin: 06/15/17 05:34 Dose: 40 mg Levalbuterol HCl (Xopenex 1.25mg/3ml) 1.25 mg AEROSOL RTTID [facility] Last Admin: 06/15/17 09:24 Dose: 1.25 mg Losartan Potassium (Cozaar) 50 mg PO HS [facility] Last Admin: 06/14/17 20:52 Dose: 50 mg Omeprazole (Prilosec) 20 mg PO ACB [facility] Last Admin: 06/15/17 05:23 Dose: 20 mg Ondansetron HCl (Zofran) 8 mg IVP Q6H PRN PRN Reason: Nausea Senna (Senna Lax) 17.2 mg PO HS [place] Last Admin: 06/14/17 20:52 Dose: 17.2 mg Sodium Chloride (Iv Flush) 10 - 80 ml IV PRN PRN PRN Reason: Flushing Last Admin: 06/15/17 05:35 Dose: 30 ml Current Medical Issues: 1. Atrial fibrillation with rapid ventricular response 2. Reduced cognition secondary to normal pressure hydrocephalus Comments: I certify that I personally led the interdisciplinary team meeting and agree with comments, barriers and goals indicated. Team meeting was held in the patient's room with the patient and the following family members present: Patient alone - Speech Therapy Speech therapy has been working with the patient for cognition and memory training. Today her memory was somewhat better. She is modified independent with expression. However each day fluctuates quite a bit. - Physical Therapy Comments: Safety awareness is very poor. She is able to ambulate 50 feet with standby assistance. - Occupational Therapy Comments: She is maximal assistance for lower body dressing, standby assist for eating and moderate assistance for bathing. - Barriers to Discharge Barriers to Attaining Goals: Comprehension, Other (safety awareness, atrial fibrillation with rapid ventricular response, diastolic heart failure, endurance ) - Care Plan Anticipated DC Destination: Group Home/Facility I have led this team conference and agree with the plan. Anticipated Length of Stay (days): 2 (some mild dependent on medical status.)
[2017-06-15 19:37] VITALS: RESP 16
[2017-06-15] MEDS: SENNOSIDES 8.6 MG TABLET PO SCH (21:03)
[2017-06-15] MEDS: LOSARTAN 50 MG TABLET PO SCH (21:03)
[2017-06-16] MEDS: OMEPRAZOLE 20 MG CAPSULE PO SCH ×2 (04:59→08:45)
[2017-06-16 07:45] VITALS: O2SAT 96
[2017-06-16 09:00] VITALS: BP 116/75; TEMP 98.3
[2017-06-16] MEDS ORDERED: FUROSEMIDE 40 MG TABLET PO SCH ×2 (09:00→17:00)
[2017-06-16] MEDS: DiltiaZEM CD 360 MG CAPSULE PO SCH (09:03)
[2017-06-16] MEDS: ATENOLOL 100 MG TABLET PO SCH (09:03)
[2017-06-16] MEDS: SALINE FLUSH 10ml SYRINGE IV PRN (09:04)
[2017-06-16] MEDS: AMLODIPINE 5 MG TABLET PO SCH (09:04)
[2017-06-16] MEDS: FUROSEMIDE 40 MG TABLET PO SCH ×3 (09:04→09:59)
[2017-06-16] MEDS: CHLORTHALIDONE 25 MG TABLET PO SCH (09:04)
--- NOTE | 2017-06-16 10:26 | Discharge Instructions ---
Discharge Plan - Med Rec/Dispo Additional Instructions: Recheck CBC (for anemia) and BMP (for renal function - on diuretics) on . Fax results to Dr. Hudson and Dr. Siddiqi. Prescriptions: New Apixaban [Eliquis] 2.5 mg PO BID #30 tab DiltiaZEM CD [Cardizem Cd] 360 mg PO DAILY #30 cap Furosemide [Lasix] 40 mg PO DAILY #30 tab Levalbuterol 1.25mg/3ml NEB [XOPENEX 1.25mg/3ml] 1.25 mg AEROSOL RTTID #1 neb Sennosides [Senna Lax] 17.2 mg PO HS tablet Acetaminophen [Tylenol] 650 mg PO Q6H PRN tablet PRN Reason: Pain Continue Atenolol [Tenormin] 1 tab PO DAILY Amlodipine [Norvasc] 5 mg PO DAILY Losartan Potassium [Cozaar] 50 mg PO HS Omeprazole [Prilosec] 1 cap PO ACBID #30 cap Discontinued HydroCHLOROthiazide [Microzide] 1 cap PO WB Apixaban [Eliquis] 5 mg PO BID DiltiaZEM CD [Cardizem Cd] 360 mg PO DAILY
[2017-06-16] MEDS ORDERED: FALL RISK - PHARMACY CONSULT MC PRN (10:59)
[2017-06-16 11:26] VITALS: PULSE 114
--- NOTE | 2017-06-16 11:26 | IRU Progress Note ---
- Subjective/Serverity of Illness Devyn is pleasantly confused. She is very cooperative. She will require continued 24-hour monitoring due to her mental status situation. Arrangements have been made for her to return to [facility] on a skilled level. She denies any chest pain or shortness of breath. She denies any cough or sputum. She is able to ambulate with assistance and with a walker. I have discussed the case with Marielena Santos as well as Monika Martinez. Arrangements have been made for follow-up by Dr. Hudson as well. Exam Vital Signs: Temperature 98.3 F 06/16/17 08:00 Pulse Rate 119 H 06/16/17 08:00 Respiratory Rate 16 06/16/17 08:00 Blood Pressure 116/75 06/16/17 08:00 Pulse Oximetry 96 06/16/17 08:00 Height/Weight/BMI: Height 1.57 m Weight 73.9 kg Body Mass Index 29.2 Comments: The patient is awake, alert but not oriented. She is in no distress. Pupils are equal. The neck is supple. Chest: Clear to auscultation bilaterally. Cor: irregular rhythm with no gallop, click nor murmur Abd: soft with normo-active bowel sounds. There are no masses, no tenderness and no guarding. Extremities: No edema is noted. There are good pulses in both ankles. No cyanosis is present. Sepsis Assessment - Evaluation Sepsis screening result: No Definite Risk IRU A/P (1) Normal pressure hydrocephalus Current visit: Yes Status: Chronic Reduced cognition noted likely related to normal pressure hydrocephalus. She will require 24-hour nursing management. (2) Atrial fibrillation with RVR Current visit: No Status: Acute Continues to have episodes of RVR with regard to rate fibrillation. Medications have been adjusted. Remains on Eliquis for stroke prevention. (3) Essential (primary) hypertension Current visit: No Status: Chronic (4) Diastolic CHF, acute Current visit: Yes Status: Acute She has been changed to oral Lasix. DVT Prophylaxis: Eliquis Resuscitation Status: Full Code - Course Hospital Course: Solomon Walton MD: 06/09/17 11:27 Patient is settling into rehabilitation well. She is cooperative with therapy. She has developed some knee pain. Currently tolerating new medications adequately without lightheadedness. Continues in atrial fibrillation but this is relatively asymptomatic. 06/11/17 10:48 She is cooperative with therapy. Cognition issues limit progress. Able to ambulate better with standby assistance. Continues to have rapid ventricular response from time to time. Cardiology has been consulted. 06/14/17 09:47 She is slowly progressing with therapy. However cognition is a barrier to her progress. She is walking 250 feet. Has an element of diastolic heart failure exacerbated by her atrial fibrillation. Was given Lasix 40 mg 3 days ago. Weight is actually up a bit. However lungs are clear. Diltiazem reduced due to reported 3 second pause. May be in sinus mechanism according to telemetry. However sounded fairly irregular today to me. 06/15/17 10:48 Patient continues to be followed by hospitalists and cardiology. Telemetry strips do reveal occasional episodes of sinus mechanism with PACs. She does have shortness of breath with activity. Does have a few crackles in her lungs today. She is ambulate reasonably well. Requires maximal assistance for lower extremity dressing. 06/16/17 11:25 Patient has plateaued regard to therapy at this level of care. She is being transferred to skilled level and requires 24-hour management due to her cognition deficits. Dr. Hudson we'll plan to see her in a couple of weeks. - Interventions to Obtain Goals PT Treatment Plan: Balance/Proprioception, Functional Activities, Manual Therapy , Patient/Family Education, Therapeutic Exercise OT Treatment Plan: ADL (Basic Care), Balance Training, IADL, Pt./Family Education, Ther. Exercise for ADL
--- NOTE | 2017-06-16 11:44 | Discharge Instructions ---
Discharge Plan - Med Rec/Dispo Referrals/Follow Up: Nilson Hudson MD [Physician] - 2 Weeks Pankaj Arora MD [Family Provider] - 1 Week Additional Instructions: Recheck CBC (for anemia) and BMP (for renal function - on diuretics) on . Fax results to Dr. Hudson and Dr. Siddiqi. Prescriptions: New Apixaban [Eliquis] 2.5 mg PO BID #30 tab DiltiaZEM CD [Cardizem Cd] 360 mg PO DAILY #30 cap Furosemide [Lasix] 40 mg PO DAILY #30 tab Levalbuterol 1.25mg/3ml NEB [XOPENEX 1.25mg/3ml] 1.25 mg AEROSOL RTTID #1 neb Sennosides [Senna Lax] 17.2 mg PO HS tablet Acetaminophen [Tylenol] 650 mg PO Q6H PRN tablet PRN Reason: Pain Continue Atenolol [Tenormin] 1 tab PO DAILY Amlodipine [Norvasc] 5 mg PO DAILY Losartan Potassium [Cozaar] 50 mg PO HS Omeprazole [Prilosec] 1 cap PO ACBID #30 cap Discontinued HydroCHLOROthiazide [Microzide] 1 cap PO WB Apixaban [Eliquis] 5 mg PO BID DiltiaZEM CD [Cardizem Cd] 360 mg PO DAILY Discharge Instructions/Outpatient Orders: Final Provider Discharge Instructions Location: Determined By Patient - Disposition 03 To [facility] Not [facility] ([facility])
--- NOTE | 2017-06-16 11:47 | Extended Care Facility Orders ---
Admission Orders Admit to:: Senior Living Allergies/Adverse Reactions: Allergies No Known Allergies Allergy (Unverified 11/09/16 17:15) Admitting Diagnosis: A-Fib w/RVR Admitting Physician: Solomon Walton MD Attending Physician: Solomon Walton MD Code Status: Full Code Anticiapted Length of Stay: 30 days or less Rehab Potential: fair Rehab Prognosis: fair Diet: 06/08/17 Dinner Regular Diet [DIET] Diet Modifications: No added salt May use Facility Protocol or Standing Orders: Yes May have flu vaccine: Yes Evaluations/Treatment: Speech, PT, OT Senior Living Certification: I certify that SNF services are required to be given on an Inpatient basis because of the patients need for halfway care on a continuing basis for the condition(s) for which he/she received inpatient hospital services prior to his/her transfer to the SNF. SNF inpatient care is necessary for the following reasons: atrial fibrillation with occasional rapid ventricular response, reduced cognition secondary to normal pressure hydrocephalus, generalized debility Indication for Senior Living: Other (Monitor cardiac status, shortness of breath, fluid status) - Additional Information In Event of Arrest: Start CPR,call 911,send patient to the ER Resident is Aware of Diagnosis: Yes Referrals: Nilson Hudson MD [Physician] - 2 Weeks Pankaj Arora MD [Family Provider] - 1 Week
--- NOTE | 2017-06-16 13:57 | Discharge Summary ---
Discharge Information Date of admission: 06/08/17 15:39 Anticipated date of discharge: 06/16/17 Attending Physician: Solomon Walton MD Primary care physician: Pankaj Aroar MD Consults: 06/08/17 16:05 Physician Consult [CONS] Routine Consulting Provider: Gaudencio kAbar Reason For Exam: Medical management Ordering Provider has Notified Linoleum Layer Helper: No 06/10/17 10:40 Physician Consult [CONS] Routine Consulting Provider: Nilson Hudson Reason For Exam: A-fib RVR. Rate control Ordering Provider has Notified Linoleum Layer Helper: Yes Comment: talked with Monika - Discharge Diagnosis (1) Normal pressure hydrocephalus Status: Chronic Discharge Diagnosis: Normal pressure hydrocephalus status post SUPERVISORY INVESTIGATIVE SPECIALIST shunt placement with continued severe cognitive deficits. (2) Atrial fibrillation with RVR Status: Acute Discharge Diagnosis: Paroxysmal atrial fibrillation with rapid ventricular response. (3) Essential (primary) hypertension Status: Chronic Discharge Diagnosis: Benign essential hypertension (4) Diastolic CHF, acute Status: Acute Discharge Diagnosis: Heart failure with preserved ejection fraction, symptomatic with dyspnea. - Procedures Procedures: Electrocardiograms revealed atrial fibrillation with rapid ventricular response but without further acute findings. - Laboratory Labs: 06/14/17 03:37 06/15/17 04:19 - Radiology Radiology: Chest x-rays revealed alveolar and interstitial edema as well as small pleural effusions. No infiltrate. History of Present Illness HPI: 06/16/17 13:59 Mrs. Salguero is a very pleasant 87-year-old female followed by Dr. Pankaj Arora and living in assisted living at [facility]. She apparently awakened with shortness of breath and not feeling well. She was brought to the emergency department by EMS and evaluated and noted to be in atrial fibrillation with rapid ventricular response. She was admitted to the acute care hospital at [facility]. Troponins were measured and were unremarkable. Echocardiogram showed normal ejection fraction but with biatrial enlargement. She was given diltiazem for control of her atrial fibrillation rate. She was stabilized. CT angiogram of the chest was done on acute and this was negative for pulmonary embolus. She was noted to be significantly weak and for that reason it was recommended that she be seen in the inpatient rehabilitation unit for strengthening in order to to return her to her previous level of functioning. 06/16/17 14:12 Hospital Course This is a general summary of the patient's hospital course. For more details refer to the complete medical record. After having been stabilized in the acute care hospital, she was transferred to inpatient rehabilitation for an intensive individualized program of occupational therapy and physical therapy as well as speech therapy. She was seen by speech therapy for cognition and memory training. Her responses were variable. She was moderate assistance for memory tasks and it was felt she was not safe to be in her assisted living apartment. From a physical therapy standpoint, the patient was able to transfer with standby assistance. She was able to ambulate with a front-wheeled walker initially with anywhere from standby assistance to maximal assistance. By the conclusion of therapy she was standby assistance for ambulation at over 240 feet with a front-wheeled walker. She was able to climb 4 steps with contact guard assistance initially and was standby assistance subsequently at the end of therapy. From an occupational therapy standpoint results were variable. Grooming went from standby assistance to minimal assistance. Bathing went from minimal assistance to moderate assistance. Upper extremity and lower extremity dressing were minimal assistance at the initiation of therapy and minimal to moderate assistance at the conclusion of therapy. From a medical standpoint she required significant medical management and 24 rehabilitation nursing monitoring of her cardiac and cognition status. She was on telemetry. She continued to have episodes of atrial fibrillation with rapid ventricular response. She was followed by the hospitalists as well as Dr. Hudson. Her doses of diltiazem were adjusted. There was question as to whether she would need a pacemaker initially but it was subsequently determined that she did not need that. Some of the telemetry strips did reveal sinus mechanism with PACs, but most were atrial fib. In addition she had evidence of heart failure with preserved ejection fraction. This is on the basis of an abnormal chest x-ray, in conjunction with clinical examination and a normal ejection fraction on echo. She required intravenous Lasix. She did have episodes of dyspnea with activity which did improve with the use of Lasix. As noted, her ejection fraction on echocardiogram during the acute hospital stay was normal. Unfortunately, her cognitive deficits were quite profound. She was unable to carry over instructions from one day to the next very well. We attributed this to her known normal pressure hydrocephalus even though a shunt is in place. It was our hope that she could return to her independent living or assisted living location. However it became clear that she was unsafe for that environment and therefore she is transferring to [facility], skilled level of care for continued physical therapy and occupational therapy as well as medical management. She will see Dr. Hudson in a couple of weeks and we recommend she see Dr. Arora in about a week. She is being sent home on Eliquis for stroke prevention. Hospital course: New onset atrial fibrillation with RVR Essential hypertension Hyperlipidemia Normal pressure hydrocephalus - SUPERVISORY INVESTIGATIVE SPECIALIST shunt (Dr. Vides) Benign essential tremor Osteo-arthritis Depression Recurrent cystitis Allergic rhinitis Memory deficits 06/09/17 -Hospitalist consultation Agree with admission to rehabilitation unit under the care of Dr. Walton. Continue current medications and telemetry. Blood pressures have been stable. Since admission to IRU, telemetry shows A. fib mostly running lower 100's with nonsustained rates up to 140s with activity. Consider cardiology consult if patient's rates are not controlled or other concerning findings arise. Bowel motivation with senna. Thank you for the consult. We will continue to follow along with you throughout patient's stay. Patient's care to return to Dr. Pankaj Arora on discharge. 06/10/17 Plan Telemetry reviewed and A-fib rate increased 120-140's this morning. Currently on atenolol 100 milligrams, Cardizem 360 milligrams. Spoke with Cardiology team- Will consult for expertise and recommendations for better rate control Did review morning laboratory studies. Sodium is slightly up at 145, however, this has been chronic. Continues on all across twice a day for chronic anticoagulation. Encourage work with PT and OT for ongoing strengthening 06/10/17 Cardiology Add Cardizem 120mg today to her daily 360mg Cardizem and continue to monitor for bradycardia or pauses. Thank you for allowing us to participate in the care of this patient. 06/11/17 15:11 AFIB: still poor rate control at times. Increased Cardizem to 480mg daily. Gave additional 120mg today. Dyspnea: Reports SOA. weight up 3 pounds, agree with diuresis, Lasix 40mg IV ordered by hospitalist. 06/15/17 improved with diuresis. Change Lasix to 40mg PO BID today Time spent with patient: 25 - 35 minutes Discharge Plan - Med Rec/Dispo Referrals/Follow Up: Nilson Hudson MD [Physician] - 2 Weeks Pankaj Arora MD [Family Provider] - 1 Week [place] Instructions: A-fib (Atrial Fibrillation) (GEN) Additional Instructions: Recheck CBC (for anemia) and BMP (for renal function - on diuretics) on . Fax results to Dr. Hudson and Dr. Siddiqi. Prescriptions: New Apixaban [Eliquis] 2.5 mg PO BID #30 tab DiltiaZEM CD [Cardizem Cd] 360 mg PO DAILY #30 cap Furosemide [Lasix] 40 mg PO DAILY #30 tab Levalbuterol 1.25mg/3ml NEB [XOPENEX 1.25mg/3ml] 1.25 mg AEROSOL RTTID #1 neb Sennosides [Senna Lax] 17.2 mg PO HS tablet Acetaminophen [Tylenol] 650 mg PO Q6H PRN tablet PRN Reason: Pain Continue Atenolol [Tenormin] 1 tab PO DAILY Amlodipine [Norvasc] 5 mg PO DAILY Losartan Potassium [Cozaar] 50 mg PO HS Omeprazole [Prilosec] 1 cap PO ACBID #30 cap Discontinued HydroCHLOROthiazide [Microzide] 1 cap PO WB Apixaban [Eliquis] 5 mg PO BID DiltiaZEM CD [Cardizem Cd] 360 mg PO DAILY Discharge Instructions/Outpatient Orders: Final Provider Discharge Instructions Location: Determined By Patient - Disposition 03 To [facility] Not [facility] ([facility])
== END 2017-06-16 15:27 | DRG 945 ==
PROVIDERS: ADMIT Internal Medicine; ATTEND Internal Medicine

== ENCOUNTER 2017-07-29 16:58 | Inpatient (IN) ==
[2017-07-28 13:50] VITALS: BMI 29.0
--- NOTE | 2017-07-28 14:05 | XRay Report ---
Indication: afib PROCEDURE: XR chest 1V: Encounter: Initial Comparison: June 13, 2017 Findings: Increasing moderate right pleural effusion. Worsening consolidation in the right middle and lower lobes. Left lung appears better aerated with a trace left effusion present. No pneumothorax. Cardiac silhouette remains enlarged. Mediastinal contours are stable. Pulmonary vascularity is less congested than the comparison. Right FIRST MATE shunt. Overlying monitoring leads. Left humeral hardware. Impression: Increasing moderate right effusion. .
[2017-07-28] MEDS: DiltiaZEM Drip 125 MG in NS 125 ML IV SCH (14:10)
[2017-07-28] MEDS: LOSARTAN 50 MG TABLET PO SCH (20:50)
[2017-07-28] MEDS: APIXABAN 5 MG TABLET PO SCH (20:50)
[2017-07-29] MEDS: DiltiaZEM Drip 125 MG in NS 125 ML IV SCH ×3 (01:38→15:24)
[2017-07-29] MEDS: OMEPRAZOLE 20 MG CAPSULE PO SCH ×2 (06:40→18:02)
[2017-07-29] MEDS: ATENOLOL 100 MG TABLET PO SCH (10:04)
[2017-07-29] MEDS: APIXABAN 5 MG TABLET PO SCH (10:04)
--- NOTE | 2017-07-29 16:32 | DC Cardioversion ---
DATE OF PROCEDURE July 29, 2017 HISTORY The patient is an 87-year-old lady who was admitted with atrial fibrillation with rapid ventricular rate on chronic anticoagulation and was referred for DC cardioversion. Informed consent was obtained after explaining the procedure and the potential risks to the patient who agreed to proceed with the procedure. PROCEDURE DC cardioversion. DESCRIPTION OF PROCEDURE Conscious sedation was performed using Versed and fentanyl. Anterior-posterior Zoll pads were applied. 360 joules of energy was delivered in synchronized manner and patient converted from atrial fibrillation to junctional rhythm with ventricular rate of 40s. occasionally she goes into sinus and goes back into junctional. The patient tolerated the procedure well with no complications. IMPRESSION Successful cardioversion of atrial fibrillation to junctional rhythm and with occasional sinus. The patient appears to have sick sinus syndrome with previous hospitalization and current hospitalization with severe bradycardia. Patient may require pacemaker however for now will watch her rate and rhythm. We may consider starting her on antiarrhythmics to maintain sinus if the heart rate and rhythm recovers. VANESSA
[~2017-07-29 16:58] MED LIST: DiltiaZEM 25 MG/5 ML INJECTION IV ONE; DiltiaZEM CD 360 MG CAPSULE PO SCH; FUROSEMIDE 40 MG TABLET PO SCH
[2017-07-29] MEDS ORDERED: ATROPINE 0.4 MG/ML INJECTION IVP ONE ×2 (17:57)
[2017-07-29] MEDS ORDERED: NS 500 ML IV ONE (17:57)
[2017-07-29] MEDS ORDERED: FLUMAZENIL 0.5mg/5ml INJECTION IVP ONE (17:57)
[2017-07-29] MEDS ORDERED: FentaNYL 100 MCG/2 ML INJECTION IVP ONE (17:57)
[2017-07-29] MEDS ORDERED: NALOXONE 0.4 MG/ML INJECTION IVP ONE (17:57)
[2017-07-29] MEDS ORDERED: MIDAZOLAM 2mg/2ml INJECTION IVP ONE (17:57)
[2017-07-29] MEDS ORDERED: SALINE FLUSH 10ml SYRINGE IV ONE (17:57)
[2017-07-29] MEDS ORDERED: FUROSEMIDE 40 MG TABLET PO SCH (21:00)
[2017-07-29] MEDS: NS 1,000 ML IV SCH (22:30)
[2017-07-30] MEDS: LOSARTAN 50 MG TABLET PO SCH ×2 (00:31→20:20)
[2017-07-30] MEDS: OMEPRAZOLE 20 MG CAPSULE PO SCH ×2 (07:15→19:00)
[2017-07-30] MEDS: ATENOLOL 100 MG TABLET PO SCH (10:54)
--- NOTE | 2017-07-30 13:36 | Cardiology Progress Note ---
<Mary Loya - Last Filed: 07/30/17 17:42> Subjective Principal diagnosis: Atrial Fibrillation Interval history: CC: Afib RVR Pt was seen in office with Dr. Hudson on 07/28/17, her ECG at that time showed AFib RVR, rate 120's. She was [place] [facility] and possible DCCV. She was diuresed with a total of 80mg IV lasix. She underwent a DCCV, and cardizem gtt. She converted to a junctional rhythm in the 40's, then eventually into SR, SB with PAC's on Tele. She was difficult to arouse post versed, having difficulty with ADL's, she was made NPO. She became hypotensive with low UO yesterday evening and bolused 500cc, then placed on 75cc/hr of NS. Lasix PO was held today. Per nursing report she roused to oral care by the bedside RN with increased lucidity, baseline mild dementia. Upon exam pt is sleeping soundly in the chair at bedside, nice in place. Exam Vital signs: Temperature 97.2 F 07/30/17 08:00 Pulse Rate 76 07/30/17 13:00 Respiratory Rate 25 H 07/30/17 12:45 Blood Pressure 160/74 H 07/30/17 12:00 Pulse Oximetry 97 07/30/17 12:45 - Constitutional no acute distress - Routine HEENT Exam Head: Present: normocephalic, atraumatic Eye: Present: PERRL, conjunctivae pink - Routine Neck Exam Absent: JVD, carotid bruit - Routine Respiratory Exam Present: CTA bilaterally - Routine Cardiovascular Exam Present: RRR, no murmur - Routine Abdominal Exam Present: soft, normoactive bowel sounds - Routine Extremities Exam Present: edema (1+ bilateral LE), normal capillary refill - Routine Skin Exam Present: intact. Absent: cyanosis, rash - Routine Neurological Exam Present: alert - Routine Psychiatric Exam Present: normal affect - Urinary Catheter Management Urethral Cath placed during this visit: yes Urethral indwelling: Yes Insertion date: 07/29/17 Results 07/30/17 13:54 07/30/17 13:54 Intake and Output 07/29/17 07/30/17 07/30/17 22:59 06:59 14:59 Intake Total 0 / 0 1000.0 / 1000.0 Output Total 200 / 200 635 / 635 383 / 383 Balance -200 / -200 -635 / -635 617.0 / 617.0 Intake: IV 0 / 0 1000.0 / 1000.0 DiltiaZEM Drip 125 mg In 0 / 0 Ns 125 ml @ 5 mls/hr IV . Q24H [place] Rx#:[id number] Ns 1,000 ml @ 75 mls/hr 1000.0 / 1000.0 IV .[id number] [place] Rx#: [id number] Output: Urine Amount (Catheter) 200 / 200 635 / 635 383 / 383 Other: Urine Appearance Clear Cloudy Sediment Hematuria Urine Color Pale Dark Yellow Yellow Urine Odor Strong # Voids 20 Weight 73.1 kg Patient Weight 07/31/17 06:59 Weight 73.1 kg Laboratory Results - last 24 hr 07/30/17 07/30/17 13:54 13:54 WBC 8.9 RBC 4.02 Hgb 11.9 L Hct 36.1 MCV 89.8 MCH 29.6 MCHC 33.0 RDW Std Deviation 48.7 Plt Count 87 L D MPV 9.3 L Immature Gran % (Auto) 0.4 Neut % (Auto) 83.9 H Lymph % (Auto) 10.1 L [place] % (Auto) 4.3 Eos % (Auto) 1.1 Baso % (Auto) 0.2 Neut # (Auto) 7.5 Lymph # (Auto) 0.9 L [place] # (Auto) 0.4 Eos # (Auto) 0.1 Baso # (Auto) 0.0 Abs Immat Gran (auto) 0.04 H Turbidity < 20 Sodium 144 Potassium 4.0 Chloride 105 Carbon Dioxide 28 Anion Gap 11 BUN 25.0 H GFR Calculation 28 BUN/Creatinine Ratio 15 Glucose 130 H Calculated Osmolality 283 H Calcium 8.8 Total Bilirubin 1.30 Icterus Index < 2 Alkaline Phosphatase 102 B-Natriuretic Peptide 4180 H Total Protein 6.6 Albumin 3.9 Globulin 2.7 Albumin/Globulin Ratio 1.4 Specimen Hemolysis < 15 - Imaging and Cardiology EKG results: image reviewed - EKG Interpretation EKG: sinus rhythm Assessment and Plan - Assessment and Plan (1) Atrial fibrillation with RVR Current visit: No Status: Acute (2) Diastolic CHF, acute Current visit: No Status: Acute (3) Mixed hyperlipidemia Current visit: No Status: Acute (4) Essential (primary) hypertension Current visit: No Status: Chronic - Assessment and Plan AFIB Diastolic HF HTN HLD Somnolent s/p DCCV 07/29/17, episode of hypotension, 500cc bolus and fluids 75cc/ hr started. Pt aroused easily but continues to be sleepy. Diltiazem 240mg daily, hold atenolol. Monitor BP, if hypertensive increase diltiazem. ECG today Sinus Arrhythmia w/PAC's, rate 78bpm Restart ELiquis 2.5mg bid Monitor Cr, fluid volume status for lasix need. Continue to hold for now due to hypotensive episode. Recheck lab this PM, LFT's high, will consult hospitalist. Thank you Dr. Doll. Hospital Course Summary Disclaimer: The visit summary below is not to be considered part of the above Progress Note. <Nilson Hudson - Last Filed: 08/03/17 12:23> Exam Vital signs: Temperature 96.8 F 08/03/17 10:56 Pulse Rate 112 H 08/03/17 10:56 Respiratory Rate 18 08/03/17 10:56 Blood Pressure 139/79 08/03/17 10:56 Pulse Oximetry 97 08/03/17 10:56 - Urinary Catheter Management Urethral Cath placed during this visit: no Results 08/03/17 04:48 08/03/17 04:48 Cardiac Enzymes 08/03/17 Range/Units 04:48 AST 109 H D (14-36) U/L CBC 08/03/17 Range/Units 04:48 WBC 5.6 (4.5-11.0) T/MM3 RBC 4.38 (4.00-5.20) M/MM3 Hgb 12.9 (12-16) GM/DL Hct 38.3 (36-46) % Plt Count 118 L (130-400) T/MM3 Comprehensive Metabolic Panel 08/03/17 Range/Units 04:48 Sodium 139 (134-144) MEQ/L Potassium 3.7 (3.6-5) MEQ/L Chloride 104 (98-107) MEQ/L Carbon Dioxide 26 (22-30) MEQ/L BUN 14.0 (7-17) MG/DL Creatinine 1.0 (0.7-1.2) MG/DL Glucose 118 H (65-110) MG/DL Calcium 8.6 (8.4-10.2) MG/DL Unconjugated Bilirubin 1.40 H (0.00-1.1) MG/DL AST 109 H D (14-36) U/L ALT 551 H (9-52) U/L Alkaline Phosphatase 143 H (38-126) U/L Total Protein 6.4 (6.3-8.2) G/DL Albumin 3.6 (3.5-5.0) G/DL Intake and Output 08/02/17 08/03/17 08/03/17 22:59 06:59 14:59 Intake Total 300 / 300 120 / 120 Output Total 100 / 100 700 / 700 40 / 40 Balance -100 / -100 -400 / -400 80 / 80 Intake: Oral 300 / 300 120 / 120 Output: Urine 100 / 100 700 / 700 40 / 40 Other: Urine Appearance Clear Clear Clear Urine Color Light Nallely Yellow Straw Urine Odor Normal # Voids 1 # Incontinent Voids 1 Weight 67.5 kg Patient Weight 08/04/17 06:59 Weight 67.5 kg Assessment and Plan - Assessment and Plan (1) Atrial fibrillation with RVR Current visit: No Status: Chronic (2) Essential (primary) hypertension Current visit: No Status: Chronic (3) Mixed hyperlipidemia Current visit: No Status: Chronic (4) Diastolic CHF, acute Current visit: No Status: Chronic (5) Elevated transaminase level Current visit: Yes Status: Acute - Attestation Attestation Narrative: 08/03/17 12:22 Recommendation After examining the patient I agree with the above assessment. I am involved in the formulation of the patient's plan of care. Hospital Course Summary Disclaimer: The visit summary below is not to be considered part of the above Progress Note. Addendum entered and electronically signed by Mary Loya APRN 07/30/17 17:50: Eliquis restarted at 2.5mg bid due to Cr >1.5 and age >88 Lasix restart 40mg daily PO in AM, BNP elevated on check today, consider gentle diureses tomorrow Troponin check today negative Discussion with Dr. Doll, he recommend a CT of liver w/contrast if LFT's trend down
[2017-07-30] MEDS: NS 1,000 ML IV SCH (15:59)
[2017-07-30] MEDS ORDERED: PHARMACY CONSULT - OTHER MEDS MC ONE (16:54)
[2017-07-30] MEDS: APIXABAN 5 MG TABLET PO SCH (20:21)
--- NOTE | 2017-07-30 21:32 | Consult Note ---
Consult Information - Data of Consult Consult date: 07/30/17 Requesting Physician: Nilson Hudson MD Primary Care Provider: Pankaj Arora MD Family Provider: Pankaj Arora MD - Consult Narrative Reason for consult: acutely climbing liver enzymes History of present illness: This an 87-year-old woman who underwent emergent cardioversion secondary to atrial fibrillation with the rapid ventricular rate under sedation. She had a period of hypotension secondary to output from IV diuretics. Today her AST ALT enzymes have increased approximately tenfold. We are uncertain of the etiology for this and some background investigation was requested [facility] Patient Stated Medical History Hypertension Yes Sleep Apnea No Constipation No Hx Incontinence No Hx Renal Disease No Depression Yes Clinic Medical History Atrial fibrillation with RVR (Acute Medical) Essential (primary) hypertension (Chronic Medical) Mixed hyperlipidemia (Acute Medical) Normal pressure hydrocephalus (Chronic Medical) Dyspnea (Acute Medical) Diastolic CHF, acute (Acute Medical) Medical History Updates: 1. Normal pressure hydrocephalus status post HOT KETTLE TENDER shunt. 2. Atrial fibrillation with rapid ventricular response. 3. Benign essential hypertension. 4. Left ventricular hypertrophy Surgical History: Appendectomy, tonsillectomy, cataract extraction, HOT KETTLE TENDER shunt- 2001, open reduction with internal fixation of left humerus-2010, perineal tear repair, colonoscopy-2001 Family History: Inquired in noncontributory - Social History Smoking status: Never smoker Substance use type: does not use Alcohol intake frequency: does not drink Current residence: [place] Review of Systems Review of systems: Patient was moderately drowsy throughout and unreliable to complete appropriately. 10 systems attempted Medications Home Medications Medication Instructions Recorded Confirmed Type Amlodipine [Norvasc] 5 mg PO DAILY 06/08/17 06/08/17 History Atenolol [Tenormin] 1 tab PO DAILY 06/08/17 06/08/17 History Losartan Potassium [Cozaar] 50 mg PO HS 06/08/17 06/08/17 History Allergies Allergy/AdvReac Type Severity Reaction Status Date / Time No Known Allergies Allergy Unverified 11/09/16 17:15 Exam Vital Signs: Temperature 97.3 F 07/30/17 19:45 Pulse Rate 65 07/30/17 20:30 Respiratory Rate 36 H 07/30/17 20:30 Blood Pressure 148/77 H 07/30/17 20:00 Pulse Oximetry 95 07/30/17 20:30 Telemetry Rhythm: Sinus Rhythm Height/Weight/BMI: Height 5 ft 2 in Weight 73.1 kg Body Mass Index 29.0 - Constitutional Present: no acute distress, well nourished, cooperative, somnolent - Routine HEENT Exam Eye: Present: EOMI ENT: Present: mucous membranes moist, dentition normal - Routine Respiratory Exam Present: CTA bilaterally. Absent: wheezes - Routine Cardiovascular Exam Present: RRR. Absent: murmur - Routine Abdominal Exam Present: soft, normoactive bowel sounds, tenderness, non distended Comments: No organomegaly is appreciated. Oddly she is more tender in the lower quadrants and suprapubic then she is in the right upper or epigastric - Routine Extremities Exam Present: normal capillary refill - Routine Skin Exam Present: dry, warm - Routine Neurological Exam Present: alert, oriented X3, CN II-XII intact - Routine Psychiatric Exam Present: normal affect Results - Labs CBC & Chem 7: 07/30/17 13:54 07/30/17 13:54 Assessment and Plan (1) Acute and subacute hepatic failure without coma Current visit: Yes Status: Acute (2) Acute kidney injury (nontraumatic) Current visit: Yes Status: Acute Assessment and Plan: This an 87-year-old woman was had a significant bump in transaminases yet her abdominal exam is relatively benign clinically. She had at this time has no icteric symptoms. Most likely this is acute liver injury secondary to transient ischemia however it is unusual that the ischemia is seen more profoundly in the liver than in the kidneys and so workup at this time will include: Lipase bilirubin hepatitis panel AST and ALT tomorrow ultrasound of the liver (I recommend a CT with contrast when renal function recovers) I consider the transient ischemia most likely cause, however portal vein thrombosis and underlying viral injury may be contributory. It is of interest that this is the 2nd unexpected acute kidney failure to have happened recently (with patient in the ICU initials [place]). Because of this I am requesting consult from pharmacology to cross compare anesthesia and medications including the lot numbers of the medications. Their time on this is greatly appreciated in advance Hospital Course Summary Disclaimer: The visit summary below is not to be considered part of the above Progress Note.
[2017-07-31] MEDS ORDERED: DIGOXIN 500 MCG/2 ML INJECTION IVP ONE ×2 (03:22→09:45)
[2017-07-31] MEDS: OMEPRAZOLE 20 MG CAPSULE PO SCH ×2 (06:02→17:40)
[2017-07-31] MEDS: FUROSEMIDE 40 MG TABLET PO SCH (09:08)
[2017-07-31] MEDS: APIXABAN 5 MG TABLET PO SCH ×2 (09:08→20:34)
--- NOTE | 2017-07-31 09:50 | Progress Note ---
- Date 07/31/17 Subjective: Brief history: This an 87-year-old woman who underwent emergent cardioversion secondary to atrial fibrillation with the rapid ventricular rate under sedation. She had a period of hypotension secondary to output from IV diuretics. Her liver enzymes increased approximately tenfold. Unclear etiology. Today, she is awake but "sleepy". She denies any pain of any kind, specifically no abdominal pain. She is back in afib and denies palpitations. She denies SOA. Her pulse is a bit tachycardic today. She does not know timing of her last BM. Voiding okay Objective Vital signs: Temperature 98.9 F 07/31/17 07:00 Pulse Rate 118 H 07/31/17 07:00 Respiratory Rate 24 07/31/17 07:00 Blood Pressure 163/80 H 07/31/17 07:00 Pulse Oximetry 96 07/31/17 07:00 Height/Weight/BMI: Height 1.57 m Weight 72.2 kg Body Mass Index 29.0 Comments: Gen: awake and alert, somnolent. NAD. Skin: warm and dry HEENT: NC/AT PERRL, EOMI, Sclera non icteric. MMM, OP clear Neck: supple, No JVD, Carotids 2+ without bruits. Lungs: diminished at the bases. clear, No wheezes, rhonchi CV: irregular. Tachy, Tele shows afib 110-120s. Soft murmur. Abd: NT/ND +BS. MS: No edema. Neuro: no focal deficit. Results - Labs CBC & Chem 7: 07/31/17 04:51 07/31/17 04:51 Assessment and Plan (1) Acute kidney injury (nontraumatic) Current visit: Yes Status: Acute (2) Acute and subacute hepatic failure without coma Current visit: Yes Status: Acute Assessment and Plan: Impression: 1. Elevated transaminases - Unclear etiology Possible causes include medication, embolic phenomena, acute hepatitis, transient ischemia - Hepatitis panel pending - Abd U/S pending read - Continue to follow labs, clinically - May need to do CT with contrast 2. Afib - S/P DCCV - Back in afib. - Will add back a beta eleni as she was on one at home, for better rate control - On Eliquis low dose - Increase Cardizem to home dose 3. Elevated Lipase - Awaiting U/S read - Repeat lab in am - May need to do CT with contrast 4. HTN - BP elevated, start lopressor for BP as well as HR control. - Increase Cardizem to home dose 5. Normal Pressure Hydrocephalus - H/O [employer] shunt 6. Eliquis for DVT prophylaxis, Omeprazole for GI Hospital Course Summary Disclaimer: The visit summary below is not to be considered part of the above Progress Note.
--- NOTE | 2017-07-31 11:46 | Pharmacy Consult ---
Pharmacy Consult-Other Meds - Consult Information PHARMACY CONSULT: For review of medications that might contribute to the acute liver injury. And comparison to another recent patient case. EU underwent successful cardioversion for tx of A. Fib with RVR. On day 2 post procedure her LFT's increased significantly as follows: 07/28 07/30 07/31 AST 38 1803 1767 ALT 58 1633 2070 Pt two underwent surgery for tx of SBO. Subsequently placed on vent. LFT's increased post procedure as well. First compared both medication profiles looking for common medications given. Both pts received appropriate doses of Midazolam, Fentanyl. Both also received Diltiazem bolus, then placed on Diltiazem drip. EU received dose of Naloxone and Flumazenil. Pt two did not. None of the medications mentioned above have reports in the literature for causing acute hepatic injury. Also reviewed pt home medications for meds that might contribute to acute hepatic injury. Could not find any reports of such for medications taken. At this point can not find medication causality for the acute hepatic injury.
[2017-07-31] MEDS: LOSARTAN 50 MG TABLET PO SCH (20:34)
--- NOTE | 2017-07-31 21:01 | Cardiology Progress Note ---
<No Mo - Last Filed: 07/31/17 21:36> Subjective Principal diagnosis: Atrial Fibrillation Interval history: CC: Afib RVR Pt was seen in office with Dr. Hudson on 07/28/17, her ECG at that time showed AFib RVR, rate 120's. She was [place] [facility] and possible DCCV. She was diuresed with a total of 80mg IV lasix. On 07/29/2017 She underwent a DCCV, and cardizem gtt. She converted to a junctional rhythm in the 40's, then eventually into SR, SB with PAC's on Tele. She was difficult to arouse post versed, having difficulty with ADL's, she was made NPO. She became hypotensive with low UO yesterday evening and bolused 500cc, then placed on 75cc /hr of NS. Lasix PO was held today. Per nursing report she roused to oral care by the bedside RN with increased lucidity, baseline mild dementia. 07/31/2017 she is awake, alert and oriented. She has been up to chair and walked down the vargas and bck with walker. BP is 130 -170. In A-fib HR 110's to 130. She denies palpitations, chest pain, SOB or any pain. Exam Vital signs: Temperature 97.8 F 07/31/17 16:30 Pulse Rate 132 H 07/31/17 20:00 Respiratory Rate 24 07/31/17 18:00 Blood Pressure 156/98 H 07/31/17 18:00 Pulse Oximetry 95 07/31/17 18:00 - Constitutional no acute distress, well nourished, cooperative - Routine HEENT Exam ENT: Present: mucous membranes moist - Routine Neck Exam Absent: JVD - Routine Respiratory Exam Present: decreased breath sounds (in RLL), CTA bilaterally - Routine Cardiovascular Exam Present: tachycardia, irregular rhythm - Routine Abdominal Exam Present: soft, normoactive bowel sounds - Routine Extremities Exam Present: edema (+2 - [t has been sitting in chair.), pulses intact, normal capillary refill - Routine Skin Exam Present: intact, dry - Routine Neurological Exam Present: alert, oriented X3 (yet some confusion. ), moving all extremities, vision grossly intact, hearing grossly intact, normal speech - Routine Psychiatric Exam Present: normal affect, cooperative - Urinary Catheter Management Urethral Cath placed during this visit: yes Urethral indwelling: No Insertion date: 07/29/17 Results 07/31/17 10:30 07/31/17 04:51 Cardiac Enzymes 07/31/17 Range/Units 04:51 AST 1767 H (14-36) U/L CBC 07/31/17 07/31/17 Range/Units 04:51 10:30 WBC 8.3 8.1 (4.5-11.0) T/MM3 RBC 3.96 L 4.05 (4.00-5.20) M/MM3 Hgb 11.7 L 12.0 (12-16) GM/DL Hct 35.4 L 36.3 (36-46) % Plt Count 77 L 73 L (130-400) T/MM3 Neut # (Auto) 6.8 (1.8-7.7) T/MM3 Lymph # (Auto) 0.9 L (1-4.8) T/MM3 Nelson # (Auto) 0.5 (0-0.8) T/MM3 Eos # (Auto) 0.1 (0-0.5) T/MM3 Baso # (Auto) 0.0 (0-0.2) T/MM3 Comprehensive Metabolic Panel 07/31/17 Range/Units 04:51 Sodium 143 (134-144) MEQ/L Potassium 3.5 L (3.6-5) MEQ/L Chloride 107 (98-107) MEQ/L Carbon Dioxide 25 (22-30) MEQ/L BUN 26.0 H (7-17) MG/DL Creatinine 1.3 H D (0.7-1.2) MG/DL Glucose 119 H (65-110) MG/DL Calcium 8.4 (8.4-10.2) MG/DL Unconjugated Bilirubin 0.80 (0.00-1.1) MG/DL AST 1767 H (14-36) U/L ALT 2070 H (9-52) U/L Alkaline Phosphatase 123 (38-126) U/L Total Protein 6.3 (6.3-8.2) G/DL Albumin 3.5 (3.5-5.0) G/DL Intake and Output 07/31/17 07/31/17 07/31/17 06:59 14:59 22:59 Intake Total 120 / 120 50 / 50 Output Total 1550 / 1550 850 / 850 Balance -1430 / -1430 -800 / -800 Intake: Oral 120 / 120 50 / 50 Output: Urine 1550 / 1550 850 / 850 Other: Urine Appearance Clear Clear Clear Urine Color Yellow Yellow Yellow Urine Odor Normal Strong Strong # Voids 1 1 1 # Incontinent Voids 1 1 Weight 159 lb 2.78 oz Patient Weight 08/01/17 05:59 Weight 159 lb 2.78 oz Assessment and Plan - Assessment and Plan (1) Atrial fibrillation with RVR Current visit: No Status: Acute (2) Essential (primary) hypertension Current visit: No Status: Chronic (3) Mixed hyperlipidemia Current visit: No Status: Acute (4) Diastolic CHF, acute Current visit: No Status: Acute (5) Elevated transaminase level Current visit: Yes Status: Acute - Assessment and Plan 07/29/2017 Somnolent s/p DCCV 07/29/17, episode of hypotension, 500cc bolus and fluids 75cc/ hr started. Pt aroused easily but continues to be sleepy. Diltiazem 240mg daily, hold atenolol. Monitor BP, if hypertensive increase diltiazem. ECG today Sinus Arrhythmia w/PAC's, rate 78bpm Restart ELiquis 2.5mg bid Monitor Cr, fluid volume status for lasix need. Continue to hold for now due to hypotensive episode. Recheck lab this PM, LFT's high, will consult hospitalist. Thank you Dr. Rivera 07/30/2017 Eliquis restarted at 2.5mg bid due to Cr >1.5 and age >88 Lasix restart 40mg daily PO in AM, BNP elevated on check today, consider gentle diureses tomorrow Troponin check today negative Discussion with Dr. Doll, he recommend a CT of liver w/contrast if LFT's trend down 07/31/2017 A-fib: - s/p DCCV into SR then returned to A-fib w RVR - Remains in A-fib, HR 1102's to 130. BP 130 - 170. - Last night received Dig 0.5mg and dig 0.25 4hrs later - for HR 130's - no significant effect. with Cr slightly elevated - no more Dig - Received Cardizem 240mg today. Increased Cardizem 360mg daily starting tomorrow by Dr. Rivera. - Started on metoprolol for better HR control - BP will tolerate. - cont Eliquis 2.5mg BID for anticoagulation for stroke prevention. DHF +2 edema in legs and diminished breath sounds. - cont lasix. - Monitor wts, lytes and renal function. HTN - on BB and Cardizem as above. Elevated transaminase / and lipase - per Dr. Rivera - U/S pending, may need CT. Hospital Course Summary Disclaimer: The visit summary below is not to be considered part of the above Progress Note. <Nilson Hudson - Last Filed: 08/03/17 12:28> Exam Vital signs: Temperature 96.8 F 08/03/17 10:56 Pulse Rate 112 H 08/03/17 10:56 Respiratory Rate 18 08/03/17 10:56 Blood Pressure 139/79 08/03/17 10:56 Pulse Oximetry 97 08/03/17 10:56 - Urinary Catheter Management Urethral Cath placed during this visit: no Results 08/03/17 04:48 08/03/17 04:48 Cardiac Enzymes 08/03/17 Range/Units 04:48 AST 109 H D (14-36) U/L CBC 08/03/17 Range/Units 04:48 WBC 5.6 (4.5-11.0) T/MM3 RBC 4.38 (4.00-5.20) M/MM3 Hgb 12.9 (12-16) GM/DL Hct 38.3 (36-46) % Plt Count 118 L (130-400) T/MM3 Comprehensive Metabolic Panel 08/03/17 Range/Units 04:48 Sodium 139 (134-144) MEQ/L Potassium 3.7 (3.6-5) MEQ/L Chloride 104 (98-107) MEQ/L Carbon Dioxide 26 (22-30) MEQ/L BUN 14.0 (7-17) MG/DL Creatinine 1.0 (0.7-1.2) MG/DL Glucose 118 H (65-110) MG/DL Calcium 8.6 (8.4-10.2) MG/DL Unconjugated Bilirubin 1.40 H (0.00-1.1) MG/DL AST 109 H D (14-36) U/L ALT 551 H (9-52) U/L Alkaline Phosphatase 143 H (38-126) U/L Total Protein 6.4 (6.3-8.2) G/DL Albumin 3.6 (3.5-5.0) G/DL Intake and Output 08/02/17 08/03/17 08/03/17 22:59 06:59 14:59 Intake Total 300 / 300 120 / 120 Output Total 100 / 100 700 / 700 40 / 40 Balance -100 / -100 -400 / -400 80 / 80 Intake: Oral 300 / 300 120 / 120 Output: Urine 100 / 100 700 / 700 40 / 40 Other: Urine Appearance Clear Clear Clear Urine Color Light Nallely Yellow Straw Urine Odor Normal # Voids 1 # Incontinent Voids 1 Weight 67.5 kg Patient Weight 08/04/17 06:59 Weight 67.5 kg Assessment and Plan - Assessment and Plan (1) Atrial fibrillation with RVR Current visit: No Status: Chronic (2) Essential (primary) hypertension Current visit: No Status: Chronic (3) Mixed hyperlipidemia Current visit: No Status: Chronic (4) Diastolic CHF, acute Current visit: No Status: Chronic (5) Elevated transaminase level Current visit: Yes Status: Acute - Attestation Attestation Narrative: 08/03/17 12:28 Recommendation After examining the patient I agree with the above assessment. I am involved in the formulation of the patient's plan of care. Hospital Course Summary Disclaimer: The visit summary below is not to be considered part of the above Progress Note. Addendum entered and electronically signed by No Mo APRN 08/01/17 18:01: Dr. Hudson did not see pt on this date, but agrees with plan of care.
[2017-08-01] MEDS: OMEPRAZOLE 20 MG CAPSULE PO SCH ×2 (06:37→17:47)
[2017-08-01] MEDS ORDERED: DIGOXIN 500 MCG/2 ML INJECTION IVP ONE (07:10)
--- NOTE | 2017-08-01 08:01 | Progress Note ---
- Date 08/01/17 Subjective: This an 87-year-old woman who underwent emergent cardioversion secondary to atrial fibrillation with the rapid ventricular rate under sedation. She had a period of hypotension secondary to output from IV diuretics. Her liver enzymes increased approximately tenfold. Unclear etiology. Today, she continues to be somnolent. BP and HR elevated and medications adjusted. She denies any pain of any kind, specifically no abdominal pain. She denies palpitations. She denies SOA. Voiding fine. Objective Vital signs: Temperature 97.2 F 08/01/17 03:01 Pulse Rate 129 H 08/01/17 07:00 Respiratory Rate 22 08/01/17 07:00 Blood Pressure 150/95 H 08/01/17 07:00 Pulse Oximetry 90 08/01/17 07:00 Height/Weight/BMI: Height 1.57 m Weight 72.2 kg Body Mass Index 29.0 Comments: Gen: Very somnolent. Only awakens briefly, follows commans. NAD. Skin: warm and dry HEENT: NC/AT PERRL, EOMI, Sclera non icteric. MMM, OP clear Neck: supple, No JVD, Carotids 2+ without bruits. Lungs: diminished at the bases. clear, No wheezes, rhonchi CV: irregular. Tachy, Tele shows afib 110-130s. Soft murmur. Abd: NT/ND +BS. MS: No edema. Neuro: no focal deficit. Results - Labs CBC & Chem 7: 08/01/17 04:15 08/01/17 04:15 Assessment and Plan (1) Acute kidney injury (nontraumatic) Current visit: Yes Status: Acute (2) Acute and subacute hepatic failure without coma Current visit: Yes Status: Acute Assessment and Plan: Impression: 1. Elevated transaminases - Unclear etiology Possible causes include medication, embolic phenomena, acute hepatitis, transient ischemia - Trending down - Hepatitis panel pending - Abd U/S pending read - Continue to follow labs, clinically - May need to do CT with contrast 2. Afib - S/P DCCV - Back in afib. - Increase BBL, daily digoxin. - On Eliquis low dose -- consider normal dose as her creatinine is okay. Defer to cardiology - Cardizem back to 360mg 3. Elevated Lipase - Awaiting U/S read - Trending down - May need to do CT with contrast 4. HTN - BP elevated, start lopressor for BP as well as HR control. - Increase Cardizem to home dose 5. Normal Pressure Hydrocephalus - H/O [employer] shunt 6. Eliquis for DVT prophylaxis, Omeprazole for GI 7. Needs to be OOB more. Encourage ambulation, Up to chair for meals Hospital Course Summary Disclaimer: The visit summary below is not to be considered part of the above Progress Note.
[2017-08-01] MEDS: FUROSEMIDE 40 MG TABLET PO SCH (08:04)
[2017-08-01] MEDS: APIXABAN 5 MG TABLET PO SCH ×2 (08:04→20:50)
[2017-08-01] MEDS: DiltiaZEM CD 360 MG CAPSULE PO SCH (08:04)
[2017-08-01] MEDS: SALINE FLUSH 10ml SYRINGE IV PRN ×2 (08:06→23:15)
[2017-08-01] MEDS: MAGNESIUM SULFATE 1gm PREMIX 1 GM/100 ML BAG IV SCH ×2 (09:15→10:00)
--- NOTE | 2017-08-01 09:48 | Ultrasound Report ---
Indication: Acute liver injury PROCEDURE: US liver: Encounter: Initial Comparison: None Technique: Grayscale and color Doppler sonographic imaging of the right upper quadrant of the abdomen was performed. Findings: Hepatic parenchyma is homogeneous without evidence for focal mass. The gallbladder is normal. There is no wall thickening, pericholecystic fluid, sonographic Moreno's sign or cholelithiasis. Both the intra and extrahepatic biliary system are of normal caliber with the common duct measuring 4 mm in dimension. Visualized portions of the head and body of the pancreas are unremarkable. The right kidney is present without collecting system dilatation. The right kidney measures 8.8 cm in length. Impression: Normal right upper quadrant sonogram. There is a preliminary report by [facility]. .
--- NOTE | 2017-08-01 09:52 | XRay Report ---
INDICATION: pleural effusion PROCEDURE: CHEST 2-VIEWS UPRIGHT (PA & LAT) Encounter: Initial COMPARISON: July 28, 2017 FINDINGS: Moderate right pleural effusion is stable. Left lung remains clear. No pneumothorax. Heart size and mediastinal contours are unchanged. Pulmonary vascular congestion has improved. Impression: Improving pulmonary vascular congestion with a stable moderate right effusion. .
--- NOTE | 2017-08-01 14:52 | Cardiology Progress Note ---
<No Mo - Last Filed: 08/01/17 18:01> Subjective Principal diagnosis: Atrial Fibrillation Interval history: CC: Afib RVR Pt was seen in office with Dr. Hudson on 07/28/17, her ECG at that time showed AFib RVR, rate 120's. She was admitted to [facility] for rate control and possible DCCV. She was diuresed with a total of 80mg IV lasix. On 07/29/2017 She underwent a DCCV, and cardizem gtt. She converted to a junctional rhythm in the 40's, then eventually into SR, SB with PAC's on Tele. She was difficult to arouse post versed, having difficulty with ADL's, she was made NPO. She became hypotensive with low UO yesterday evening and bolused 500cc, then placed on 75cc /hr of NS. Lasix PO was held today. Per nursing report she roused to oral care by the bedside RN with increased lucidity, baseline mild dementia. 07/31/2017 she is awake, alert and oriented. She has been up to chair and walked down the vargas and back with walker. BP is 130 -170. In A-fib HR 110's to 130. She denies palpitations, chest pain, SOB or any pain. Meds adjusted for better HR control - see under diagnosis. 08/01/2017 she is A,A, and Ox3. She has walked in vargas. She states she is tired and not much appetite today. She has had a BM today but feels constipated. HR much better controlled with med adjusted. She denies CP, SOB, or palpitations but not up to par today. She lives in independent living at [facility] in [facility] and wants to walk to keep her strength up. Exam Vital signs: Temperature 96.6 F L 08/01/17 13:56 Pulse Rate 64 08/01/17 13:56 Respiratory Rate 16 08/01/17 13:56 Blood Pressure 148/68 H 08/01/17 13:56 Pulse Oximetry 96 08/01/17 13:56 HR 60 to 110's. in A-fib. - Constitutional no acute distress, well nourished, cooperative - Routine HEENT Exam ENT: Present: mucous membranes moist - Routine Respiratory Exam Present: CTA bilaterally (in all lobes except RLL), diminished air movement (in RLL ) - Routine Cardiovascular Exam Present: irregular rhythm - Routine Abdominal Exam Present: soft, distended - Routine Extremities Exam Present: edema (mild ), normal capillary refill - Routine Skin Exam Present: intact, dry - Routine Neurological Exam Present: alert, oriented X3, vision grossly intact, hearing grossly intact, normal speech - Routine Psychiatric Exam Present: normal affect, normal thought process, cooperative - Urinary Catheter Management Urethral Cath placed during this visit: yes Urethral indwelling: No Insertion date: 07/29/17 Results 08/01/17 04:15 08/01/17 04:15 Cardiac Enzymes 08/01/17 Range/Units 04:15 AST 627 H D (14-36) U/L CBC 08/01/17 Range/Units 04:15 WBC 6.5 (4.5-11.0) T/MM3 RBC 4.10 (4.00-5.20) M/MM3 Hgb 12.1 (12-16) GM/DL Hct 36.2 (36-46) % Plt Count 88 L (130-400) T/MM3 Neut # (Auto) 4.7 (1.8-7.7) T/MM3 Lymph # (Auto) 1.1 (1-4.8) T/MM3 [place] # (Auto) 0.5 (0-0.8) T/MM3 Eos # (Auto) 0.2 (0-0.5) T/MM3 Baso # (Auto) 0.0 (0-0.2) T/MM3 Comprehensive Metabolic Panel 08/01/17 Range/Units 04:15 Sodium 141 (134-144) MEQ/L Potassium 3.1 L (3.6-5) MEQ/L Chloride 105 (98-107) MEQ/L Carbon Dioxide 27 (22-30) MEQ/L BUN 17.0 (7-17) MG/DL Creatinine 0.9 D (0.7-1.2) MG/DL Glucose 106 (65-110) MG/DL Calcium 8.4 (8.4-10.2) MG/DL Unconjugated Bilirubin 1.20 H (0.00-1.1) MG/DL AST 627 H D (14-36) U/L ALT 1220 H (9-52) U/L Alkaline Phosphatase 127 H (38-126) U/L Total Protein 5.9 L (6.3-8.2) G/DL Albumin 3.2 L (3.5-5.0) G/DL Intake and Output Intake & Output 07/30/17 07/31/17 08/01/17 08/02/17 07:59 07:59 06:59 06:59 Intake Total 415 / 415 Output Total 100 / 100 Balance 315 / 315 Weight 155 lb 13.869 oz Intake & Output Actually had u/o > 3000 ml on 08/01/2017 per I/O. - Imaging and Cardiology Imaging & Cardiology Narrative: Active Medications Generic Name Dose Route Start Last Admin Trade Name Freq PRN Reason Stop Dose Admin Apixaban 2.5 mg 07/30/17 21:00 08/01/17 08:04 Eliquis PO 2.5 mg BID ISRAEL Administration Digoxin 125 mcg 08/02/17 09:00 Lanoxin PO DAILY ISRAEL Diltiazem HCl 360 mg 08/01/17 09:00 08/01/17 08:04 Cardizem Cd PO 360 mg DAILY ISRA[place] Administration Furosemide 40 mg 07/31/17 09:00 08/01/17 08:04 Lasix PO 40 mg DAILY IS[place] Administration Losartan Potassium 50 mg 07/28/17 21:00 07/31/17 20:34 Cozaar PO 50 mg HS IS[place] Administration Metoprolol Tartrate 50 mg 08/01/17 08:00 08/01/17 08:03 Lopressor PO 50 mg BIDWM ISRA[place] Administration Omeprazole 20 mg 07/29/17 06:30 08/01/17 06:37 Prilosec PO 20 mg ACBID ISRA[place] Administration Potassium Chloride 20 meq 08/02/17 08:00 K-Dur PO WB ISRAEL Sodium Chloride 10 ml 08/01/17 08:06 08/01/17 08:06 Iv Flush IV 10 ml PRN PRN Administration Flushing On 08/01/2017 she received in addition to above: KCL 40mEq po x1 this am Digoxin 0.5 mg IVP x1 this am Mag sulfate 1 gm IV x1 this am and Cardizem 240mg stopped and increased Cardizem 360mg - 1st dose today Metoprolol 25mg BID stopped and increased metoprolol 50mg BID - 1st dose today. - EKG Interpretation EKG shows: atrial fibrillation Assessment and Plan - Assessment and Plan (1) Atrial fibrillation with RVR Current visit: No Status: Acute (2) Essential (primary) hypertension Current visit: No Status: Chronic (3) Mixed hyperlipidemia Current visit: No Status: Acute (4) Diastolic CHF, acute Current visit: No Status: Acute (5) Elevated transaminase level Current visit: Yes Status: Acute - Assessment and Plan 07/29/2017 Somnolent s/p DCCV 07/29/17, episode of hypotension, 500cc bolus and fluids 75cc/ hr started. Pt aroused easily but continues to be sleepy. Diltiazem 240mg daily, hold atenolol. Monitor BP, if hypertensive increase diltiazem. ECG today Sinus Arrhythmia w/PAC's, rate 78bpm Restart ELiquis 2.5mg bid Monitor Cr, fluid volume status for lasix need. Continue to hold for now due to hypotensive episode. Recheck lab this PM, LFT's high, will consult hospitalist. Thank you Dr. Rivera 07/30/2017 Eliquis restarted at 2.5mg bid due to Cr >1.5 and age >88 Lasix restart 40mg daily PO in AM, BNP elevated on check today, consider gentle diureses tomorrow Troponin check today negative Discussion with Dr. Doll, he recommend a CT of liver w/contrast if LFT's trend down 07/31/2017 A-fib: - s/p DCCV into SR then returned to A-fib w RVR - Remains in A-fib, HR 1102's to 130. BP 130 - 170. - Last night received Dig 0.5mg and dig 0.25 4hrs later - for HR 130's - no significant effect. with Cr slightly elevated - no more Dig - Received Cardizem 240mg today. Increased Cardizem 360mg daily starting tomorrow by Dr. Rivera. - Started on metoprolol for better HR control - BP will tolerate. - cont Eliquis 2.5mg BID for anticoagulation for stroke prevention. DHF +2 edema in legs and diminished breath sounds. - cont lasix. - Monitor wts, lytes and renal function. HTN - on BB and Cardizem as above. Elevated transaminase / and lipase - per Dr. Rivera - U/S pending, may need CT. 08/01/2017 A-fib: - s/p DCCV into SR then returned to A-fib w RVR - Remains in A-fib, By 1100 HR down to 60's - 110's. HR better controlled. - Received Dig 0.5mg IVP x1 this am. and cont Dig 0.125 mg po daily - Received Cardizem 360mg - first dose of increased cardizem this am. - Received metoprolol 25mg BID first dose yest. Increased metoprolol 50mg BID today per Dr. Rivera (stop home atenolol.). - cont Eliquis 2.5mg BID for anticoagulation for stroke prevention. - consider increasing Eliquis since Cr normalized. CDHF - BNP 4180. She is not SOB while sitting. Mild edema. but has pleural effusion. - 08/01 U/O > 3000 - large diuresis. CXR effusion is improved. +1 edema in legs and diminished breath sounds. - cont lasix. - Monitor wts, lytes and renal function. Pleural effusion on right - decreased per CXR - cont lasix. - encourage OOB, IS, deep breathing, walking TID. HTN - on BB and Cardizem as above. - on losartan - home dose. Elevated transaminase / and lipase - LFT's and Lipase improved. Lipase 368 -> 325 - per Dr. Rivera - U/S pending, may need CT. Hep panel pending. Hypokalemia - Replaced KCL 40mEq po x1 and KCL 20 mEq po daily. cont to monitor. Hypomag - Replaced Mag Sul 1gm this am. Normal Pressure Hydrocephalus - H/O VOLCANOLOGIST shunt - THANK you Dr. Rivera for the consult and assistance. - Dr. Hudson did not see pt on this day, but agrees with plan of care. Hospital Course Summary Disclaimer: The visit summary below is not to be considered part of the above Progress Note. <Nilson Hudson - Last Filed: 08/03/17 12:27> Exam Vital signs: Temperature 96.8 F 08/03/17 10:56 Pulse Rate 112 H 08/03/17 10:56 Respiratory Rate 18 08/03/17 10:56 Blood Pressure 139/79 08/03/17 10:56 Pulse Oximetry 97 08/03/17 10:56 - Urinary Catheter Management Urethral Cath placed during this visit: no Results 08/03/17 04:48 08/03/17 04:48 Cardiac Enzymes 08/03/17 Range/Units 04:48 AST 109 H D (14-36) U/L CBC 08/03/17 Range/Units 04:48 WBC 5.6 (4.5-11.0) T/MM3 RBC 4.38 (4.00-5.20) M/MM3 Hgb 12.9 (12-16) GM/DL Hct 38.3 (36-46) % Plt Count 118 L (130-400) T/MM3 Comprehensive Metabolic Panel 08/03/17 Range/Units 04:48 Sodium 139 (134-144) MEQ/L Potassium 3.7 (3.6-5) MEQ/L Chloride 104 (98-107) MEQ/L Carbon Dioxide 26 (22-30) MEQ/L BUN 14.0 (7-17) MG/DL Creatinine 1.0 (0.7-1.2) MG/DL Glucose 118 H (65-110) MG/DL Calcium 8.6 (8.4-10.2) MG/DL Unconjugated Bilirubin 1.40 H (0.00-1.1) MG/DL AST 109 H D (14-36) U/L ALT 551 H (9-52) U/L Alkaline Phosphatase 143 H (38-126) U/L Total Protein 6.4 (6.3-8.2) G/DL Albumin 3.6 (3.5-5.0) G/DL Intake and Output 08/02/17 08/03/17 08/03/17 22:59 06:59 14:59 Intake Total 300 / 300 120 / 120 Output Total 100 / 100 700 / 700 40 / 40 Balance -100 / -100 -400 / -400 80 / 80 Intake: Oral 300 / 300 120 / 120 Output: Urine 100 / 100 700 / 700 40 / 40 Other: Urine Appearance Clear Clear Clear Urine Color Light Nallely Yellow Straw Urine Odor Normal # Voids 1 # Incontinent Voids 1 Weight 67.5 kg Patient Weight 08/04/17 06:59 Weight 67.5 kg Assessment and Plan - Assessment and Plan (1) Atrial fibrillation with RVR Current visit: No Status: Chronic (2) Essential (primary) hypertension Current visit: No Status: Chronic (3) Mixed hyperlipidemia Current visit: No Status: Chronic (4) Diastolic CHF, acute Current visit: No Status: Chronic (5) Elevated transaminase level Current visit: Yes Status: Acute - Attestation Attestation Narrative: 08/03/17 12:27 Recommendation After examining the patient I agree with the above assessment. I am involved in the formulation of the patient's plan of care. Hospital Course Summary Disclaimer: The visit summary below is not to be considered part of the above Progress Note.
[2017-08-01] MEDS ORDERED: POLYETHYL GLYCOL 3350 17gm PACKET PO PRN (17:51)
[2017-08-01] MEDS ORDERED: ACETAMINOPHEN 500 MG TABLET PO PRN (17:51)
[2017-08-01] MEDS ORDERED: Bisacodyl EC TAB 5 MG TABLET PO PRN (17:53)
[2017-08-01] MEDS ORDERED: FALL RISK - PHARMACY CONSULT XX ONE (18:09)
[2017-08-01] MEDS: DOCUSATE SODIUM 100 MG CAPSULE PO SCH (20:50)
[2017-08-01] MEDS: LOSARTAN 50 MG TABLET PO SCH (20:50)
[2017-08-02] MEDS: OMEPRAZOLE 20 MG CAPSULE PO SCH ×2 (05:31→17:29)
[2017-08-02] MEDS: FUROSEMIDE 40 MG TABLET PO SCH (08:02)
[2017-08-02] MEDS: APIXABAN 5 MG TABLET PO SCH (08:02)
[2017-08-02] MEDS: DiltiaZEM CD 360 MG CAPSULE PO SCH (08:02)
[2017-08-02] MEDS: DIGOXIN 125 MCG TABLET PO SCH (08:03)
[2017-08-02] MEDS: DOCUSATE SODIUM 100 MG CAPSULE PO SCH ×2 (08:03→21:24)
--- NOTE | 2017-08-02 13:25 | Progress Note ---
<Amarilis St L - Last Filed: 08/02/17 13:21> - Date 08/02/17 Subjective: Patient is seen sitting in her chair watching TV. She answers questions appropriately. Does not know what day it is but knows she is at [facility] and had a procedure done recently. She denies CP, SOA, abdominal pain and swelling in the extremities. Objective Vital signs: Temperature 96.8 F 08/02/17 11:47 Pulse Rate 88 08/02/17 11:47 Respiratory Rate 16 08/02/17 11:47 Blood Pressure 149/69 H 08/02/17 11:47 Pulse Oximetry 95 08/02/17 11:47 Height/Weight/BMI: Height 1.57 m Weight 68.8 kg Body Mass Index 29.0 - Constitutional Present: no acute distress, well nourished, well developed - Routine Respiratory Exam Present: CTA bilaterally (diminished to no breath sounds to R base). Absent: wheezes - Routine Cardiovascular Exam Present: irregular rhythm, irregularly irregular. Absent: murmur - Routine Abdominal Exam Present: soft, normoactive bowel sounds, non distended. Absent: tenderness - Routine Extremities Exam Present: no edema, normal capillary refill - Routine Skin Exam Present: dry, warm - Routine Neurological Exam Present: alert, normal speech - Routine Lymphatic Exam Lymphatic: Absent: adenopathy - Routine Psychiatric Exam Present: normal affect, cooperative Results - Labs CBC & Chem 7: 08/02/17 04:27 08/02/17 04:27 Assessment and Plan (1) Acute kidney injury (nontraumatic) Current visit: Yes Status: Acute (2) Acute and subacute hepatic failure without coma Current visit: Yes Status: Acute Assessment and Plan: Impression Atrial fibrillation Essential (primary) hypertension Acute hepatic injury - improving Acute kidney injury - resolved Mixed hyperlipidemia Normal pressure hydrocephalus Diastolic CHF Plan Liver enzymes continue to improve. Abdominal sono was unremarkable. Continue to monitor. BP's have been elevated - several med changes made yesterday. Will monitor. Hospital Course Summary Disclaimer: The visit summary below is not to be considered part of the above Progress Note. <Loren Garzon L - Last Filed: 08/02/17 17:02> - Date 08/02/17 Objective Vital signs: Temperature 96.5 F L 08/02/17 15:55 Pulse Rate 108 H 08/02/17 15:55 Respiratory Rate 18 08/02/17 15:55 Blood Pressure 136/91 H 08/02/17 15:55 Pulse Oximetry 98 08/02/17 15:55 Height/Weight/BMI: Height 1.57 m Weight 68.8 kg Body Mass Index 29.0 Results - Labs CBC & Chem 7: 08/02/17 04:27 08/02/17 04:27 Assessment and Plan (1) Acute kidney injury (nontraumatic) Current visit: Yes Status: Acute (2) Acute and subacute hepatic failure without coma Current visit: Yes Status: Acute (3) Subdural hematoma Current visit: Yes Status: Acute Assessment and Plan: 08/02/2017-I reviewed this chart, the patient history, and the STEAM SHOVEL OPERATOR's/PA's documented findings as above. We discussed and formulated the assessment and plan as above with the additions below.-Dr. Garzon The patient was seen earlier this afternoon after she had a fall. I was notified by the nurse that the patient got up out of her chair and the chair alarm went off and the nurse went quickly into the room but the patient fell before she could get to her. The nurse did see the patient fall and hit her head into the wall. She then slid down the wall. She did not lose consciousness. Vital signs were okay. They were able to get her back up into her bed without difficulties. After her fall, she denied any headache or neck pain. Neurologic check was normal. I believe she has some chronic memory deficits. A CT head was ordered due to the fall and the patient being on anticoagulation. Results below do show appear to be 2 subdural hematomas. HISTORY: s/p fall with contusion to head, on Eliquis COMPARISON: No prior studies available for comparison. TECHNIQUE: Axial CT images through the head were performed without contrast. Iterative Reconstruction dose reducing technique was utilized. FINDINGS: The ventricles are of normal size, shape, and contour for the patient's age. There are scattered areas of low attenuation in the white matter which most likely represent changes from chronic microvascular ischemia. Right ventriculoperitoneal shunt is in place from a parietal approach extending to the right lateral ventricle with the tip near the midline. There is no hydrocephalus. Subtle increased extra-axial linear density involving the left cerebral convexity predominantly in the region of the left frontal and parietal lobes suspicious for subdural hemorrhage. There is also subtle increased density within the right frontal lobe which also may reflect subdural hemorrhage. Close interval follow-up is recommended. The visualized portions of the skull base, midface, and calvarium demonstrate no abnormality. The paranasal sinuses are well aerated and free of significant disease. The tympanic and mastoid cavities appear normal. IMPRESSION: 1. There is subtle increased density about the left cerebral convexity predominantly involving the left frontal/parietal lobes and subtle increased density demonstrated in the right frontal lobe. The findings may reflect extra-axial/subdural hemorrhage and close interval follow-up is recommended. 2. Age-related atrophy and moderate deep/subcortical white matter disease. 3. Right-sided ventriculoperitoneal shunt catheter in place the tip overlying the right lateral ventricle without hydrocephalus. . I did discuss the results with Dr. Don. On my exam later after CT head was obtained, the patient still denies any headache or neck pain. She has good range of motion of her neck. She denies any pain anywhere. She denies any shortness of breath. She has no other complaints. On exam she is alert and oriented to [facility]. She is not oriented to date. Neurologic exam reveals cranial nerves II through XII to be grossly intact. Motor strength is 5 over 5 and equal in the upper and lower extremities. Level of alertness is normal. She is in no acute distress. Neck is supple. Chest is clear to auscultation. Cardio vascular reveals an irregularly irregular rhythm with borderline tachycardia. Abdomen is soft and nontender. Extremities are free of edema. Impression Probable acute subdural hematomas in the patient on anticoagulation. Currently no neurologic deficits. Recent anticoagulation for A. fib History of BELT CHANGER shunt for normal pressure hydrocephalus. The patient does not remember her neurosurgeons name Elevated liver enzymes, transaminases are markedly improved. Bilirubin is up slightly. Alk phosphatase is up slightly. The cause of her elevated liver enzymes is unknown. She did have some hypotension. Hypertension Plan I did discuss the patient's fall and the finding of likely acute subdural hematomas with Dr. Hudson. Will discontinue anticoagulation now. We'll order neurochecks every [address] head without contrast tomorrow. The patient may require transfer for neurosurgical evaluation if subdurals are enlarging or if neurologic changes. Would recommend repeat stat CT head sooner if the patient should have any neurologic changes overnight. I did attempt to call the patient's twice to notify him of the patient's fall and CT head findings, but there was no answer. Repeat liver enzymes tomorrow. Hospital Course Summary Disclaimer: The visit summary below is not to be considered part of the above Progress Note.
--- NOTE | 2017-08-02 14:38 | Cardiology Progress Note ---
<Monika Martinez - Last Filed: 08/02/17 16:46> Subjective Principal diagnosis: Atrial Fibrillation Interval history: CC: Afib RVR Devyn is seen today in follow up for AFib RVR, and DCHF. She is sitting up in her recliner and is alert and oriented to person and place. She states she is "old, tired, and forgetful" when asked how she is? She denies chest pain or dyspnea. Exam Vital signs: Temperature 96.8 F 08/02/17 11:47 Pulse Rate 88 08/02/17 11:47 Respiratory Rate 16 08/02/17 11:47 Blood Pressure 149/69 H 08/02/17 11:47 Pulse Oximetry 95 08/02/17 11:47 - Constitutional no acute distress, well nourished, cooperative - Routine HEENT Exam Head: Present: normocephalic ENT: Present: mucous membranes moist - Routine Neck Exam Absent: JVD, carotid bruit - Routine Chest/Breast/Axilla Exam Chest wall: Absent: tenderness - Routine Respiratory Exam Present: diminished air movement (right lower lung). Absent: CTA bilaterally, rales, wheezes - Routine Cardiovascular Exam Present: no murmur, irregular rhythm. Absent: JVD - Routine Abdominal Exam Present: soft, normoactive bowel sounds - Routine Extremities Exam Present: no edema - Routine Skin Exam Present: intact, dry, warm - Routine Neurological Exam Present: alert (oriented to person and place) - Routine Psychiatric Exam Present: normal affect - Additional findings Additional findings: Laboratory Results - last 48 hr 08/01/17 08/01/17 08/02/17 04:15 04:15 04:27 WBC 6.5 RBC 4.10 Hgb 12.1 Hct 36.2 MCV 88.3 MCH 29.5 MCHC 33.4 RDW Std Deviation 46.3 Plt Count 88 L MPV 9.7 Immature Gran % (Auto) 0.3 Neut % (Auto) 72.1 H Lymph % (Auto) 16.8 L [place] % (Auto) 7.9 Eos % (Auto) 2.6 Baso % (Auto) 0.3 Neut # (Auto) 4.7 Lymph # (Auto) 1.1 [place] # (Auto) 0.5 Eos # (Auto) 0.2 Baso # (Auto) 0.0 Abs Immat Gran (auto) 0.02 Turbidity < 20 < 20 Sodium 141 138 Potassium 3.1 L 3.6 Chloride 105 105 Carbon Dioxide 27 26 Anion Gap 9 7 BUN 17.0 14.0 Creatinine 0.9 D 0.9 GFR Calculation 59 59 BUN/Creatinine Ratio 19 16 Glucose 106 110 Calculated Osmolality 273 268 Calcium 8.4 8.5 Magnesium 1.6 2.0 D Total Bilirubin 1.90 H 2.50 H Conjugated Bilirubin 0.00 Unconjugated Bilirubin 1.20 H Icterus Index < 2 < 2 AST 627 H D 208 H D ALT 1220 H 769 H Alkaline Phosphatase 127 H 136 H Total Protein 5.9 L 6.1 L Albumin 3.2 L 3.4 L Globulin 2.7 2.7 Albumin/Globulin Ratio 1.2 1.3 Lipase 325 H Free T4 Free T3 Specimen Hemolysis < 15 < 15 08/02/17 08/02/17 04:27 04:27 WBC 5.6 RBC 4.15 Hgb 12.4 Hct 36.5 MCV 88.0 MCH 29.9 MCHC 34.0 RDW Std Deviation 47.1 Plt Count 101 L MPV 9.7 Immature Gran % (Auto) Neut % (Auto) Lymph % (Auto) [place] % (Auto) Eos % (Auto) Baso % (Auto) Neut # (Auto) Lymph # (Auto) [place] # (Auto) Eos # (Auto) Baso # (Auto) Abs Immat Gran (auto) Turbidity Sodium Potassium Chloride Carbon Dioxide Anion Gap BUN Creatinine GFR Calculation BUN/Creatinine Ratio Glucose Calculated Osmolality Calcium Magnesium Total Bilirubin Conjugated Bilirubin Unconjugated Bilirubin Icterus Index AST ALT Alkaline Phosphatase Total Protein Albumin Globulin Albumin/Globulin Ratio Lipase Free T4 1.78 Free T3 3.17 Specimen Hemolysis Acetaminophen (Tylenol) 500 mg PO Q5H PRN PRN Reason: Discomfort Apixaban (Eliquis) 2.5 mg PO BID [facility] Last Admin: 08/02/17 08:02 Dose: 2.5 mg Bisacodyl (Dulcolax) 10 mg PO DAILY PRN PRN Reason: Constipation Digoxin (Lanoxin) 125 mcg PO DAILY [facility] Last Admin: 08/02/17 08:03 Dose: 125 mcg Diltiazem HCl (Cardizem Cd) 360 mg PO DAILY [facility] Last Admin: 08/02/17 08:02 Dose: 360 mg Docusate Sodium (Colace) 100 mg PO BID [facility] Last Admin: 08/02/17 08:03 Dose: 100 mg Furosemide (Lasix) 40 mg PO DAILY [facility] Last Admin: 08/02/17 08:02 Dose: 40 mg Losartan Potassium (Cozaar) 50 mg PO HS [facility] Last Admin: 08/01/17 20:50 Dose: 50 mg Metoprolol Tartrate (Lopressor) 50 mg PO BIDWM [facility] Last Admin: 08/02/17 08:01 Dose: 50 mg Omeprazole (Prilosec) 20 mg PO ACBID [facility] Last Admin: 08/02/17 05:31 Dose: 20 mg Polyethylene Glycol (Miralax) 17 gm PO DAILY PRN Potassium Chloride (K-Dur) 20 meq PO WB [facility] Last Admin: 08/02/17 08:04 Dose: 20 meq Sodium Chloride (Iv Flush) 10 ml IV PRN PRN PRN Reason: Flushing Last Admin: 08/01/17 23:15 Dose: 10 ml - Urinary Catheter Management Urethral Cath placed during this visit: yes Urethral indwelling: No Insertion date: 07/29/17 Results 08/02/17 04:27 08/02/17 04:27 Cardiac Enzymes 08/02/17 Range/Units 04:27 AST 208 H D (14-36) U/L CBC 08/02/17 Range/Units 04:27 WBC 5.6 (4.5-11.0) T/MM3 RBC 4.15 (4.00-5.20) M/MM3 Hgb 12.4 (12-16) GM/DL Hct 36.5 (36-46) % Plt Count 101 L (130-400) T/MM3 Comprehensive Metabolic Panel 08/02/17 Range/Units 04:27 Sodium 138 (134-144) MEQ/L Potassium 3.6 (3.6-5) MEQ/L Chloride 105 (98-107) MEQ/L Carbon Dioxide 26 (22-30) MEQ/L BUN 14.0 (7-17) MG/DL Creatinine 0.9 (0.7-1.2) MG/DL Glucose 110 (65-110) MG/DL Calcium 8.5 (8.4-10.2) MG/DL AST 208 H D (14-36) U/L ALT 769 H (9-52) U/L Alkaline Phosphatase 136 H (38-126) U/L Total Protein 6.1 L (6.3-8.2) G/DL Albumin 3.4 L (3.5-5.0) G/DL Intake and Output 08/01/17 08/02/17 08/02/17 22:59 06:59 14:59 Intake Total 0 / 0 600 / 600 Output Total 750 / 750 1225 / 1225 Balance 0 / 0 -750 / -750 -625 / -625 Intake: Oral 0 / 0 600 / 600 Output: Urine 750 / 750 1225 / 1225 Other: Urine Appearance Clear Clear Clear Urine Color Yellow Yellow Yellow Urine Odor Normal Normal Normal Stool Characteristics Pasty Stool Color Brown Yellow Stool Consistency Watery Size of Bowel Movement Moderate # Voids 1 1 # Bowel Movements 1 Weight 151 lb 10.848 oz Patient Weight 08/03/17 06:59 Weight 151 lb 10.848 oz - Imaging and Cardiology Imaging & Cardiology Narrative: Date of Exam: 08/01/17 Ordering Provider: Flor Rivera MD Type of Exam(s): XR chest 2V Reason for Exam(s): pleural effusion INDICATION: pleural effusion PROCEDURE: CHEST 2-VIEWS UPRIGHT (PA & LAT) Encounter: Initial COMPARISON: July 28, 2017 FINDINGS: Moderate right pleural effusion is stable. Left lung remains clear. No pneumothorax. Heart size and mediastinal contours are unchanged. Pulmonary vascular congestion has improved. Impression: Improving pulmonary vascular congestion with a stable moderate right effusion. 08/02/17 14:40 Assessment and Plan - Assessment and Plan (1) Atrial fibrillation with RVR Current visit: No Status: Acute (2) Essential (primary) hypertension Current visit: No Status: Chronic (3) Mixed hyperlipidemia Current visit: No Status: Acute (4) Diastolic CHF, acute Current visit: No Status: Acute (5) Elevated transaminase level Current visit: Yes Status: Acute - Assessment and Plan 07/29/2017 Somnolent s/p DCCV 07/29/17, episode of hypotension, 500cc bolus and fluids 75cc/ hr started. Pt aroused easily but continues to be sleepy. Diltiazem 240mg daily, hold atenolol. Monitor BP, if hypertensive increase diltiazem. ECG today Sinus Arrhythmia w/PAC's, rate 78bpm Restart ELiquis 2.5mg bid Monitor Cr, fluid volume status for lasix need. Continue to hold for now due to hypotensive episode. Recheck lab this PM, LFT's high, will consult hospitalist. Thank you Dr. Rivera 07/30/2017 Eliquis restarted at 2.5mg bid due to Cr >1.5 and age >88 Lasix restart 40mg daily PO in AM, BNP elevated on check today, consider gentle diureses tomorrow Troponin check today negative Discussion with Dr. Doll, he recommend a CT of liver w/contrast if LFT's trend down 07/31/2017 A-fib: - s/p DCCV into SR then returned to A-fib w RVR - Remains in A-fib, HR 1102's to 130. BP 130 - 170. - Last night received Dig 0.5mg and dig 0.25 4hrs later - for HR 130's - no significant effect. with Cr slightly elevated - no more Dig - Received Cardizem 240mg today. Increased Cardizem 360mg daily starting tomorrow by Dr. Rivera. - Started on metoprolol for better HR control - BP will tolerate. - cont Eliquis 2.5mg BID for anticoagulation for stroke prevention. DHF +2 edema in legs and diminished breath sounds. - cont lasix. - Monitor wts, lytes and renal function. HTN - on BB and Cardizem as above. Elevated transaminase / and lipase - per Dr. Rivera - U/S pending, may need CT. 08/01/2017 A-fib: - s/p DCCV into SR then returned to A-fib w RVR - Remains in A-fib, By 1100 HR down to 60's - 110's. HR better controlled. - Received Dig 0.5mg IVP x1 this am. and cont Dig 0.125 mg po daily - Received Cardizem 360mg - first dose of increased cardizem this am. - Received metoprolol 25mg BID first dose yest. Increased metoprolol 50mg BID today per Dr. Rivera (stop home atenolol.). - cont Eliquis 2.5mg BID for anticoagulation for stroke prevention. - consider increasing Eliquis since Cr normalized. CDHF - BNP 4180. She is not SOB while sitting. Mild edema. but has pleural effusion. - 08/01 U/O > 3000 - large diuresis. CXR effusion is improved. +1 edema in legs and diminished breath sounds. - cont lasix. - Monitor wts, lytes and renal function. Pleural effusion on right - decreased per CXR - cont lasix. - encourage OOB, IS, deep breathing, walking TID. HTN - on BB and Cardizem as above. - on losartan - home dose. Elevated transaminase / and lipase - LFT's and Lipase improved. Lipase 368 -> 325 - per Dr. Rivera - U/S pending, may need CT. Hep panel pending. Hypokalemia - Replaced KCL 40mEq po x1 and KCL 20 mEq po daily. cont to monitor. Hypomag - Replaced Mag Sul 1gm this am. Normal Pressure Hydrocephalus - H/O [employer] shunt - THANK you Dr. Rviera for the consult and assistance. - Dr. Hudson did not see pt on this day, but agrees with plan of care. 08/02/17 AFib: Remains in Afib, rate controlled with Cardizem, Metoprolol and the addition of Digoxin. - Dig level in am - Continue Eliquis 2.5mg for anticoagulation CHF: Lungs sounds clear but diminished right base. No pedal edema today. - Continue home Lasix 40mg po daily HTN: Suboptimal control, Increase Losartan to 100mg daily. Hospital Course Summary Disclaimer: The visit summary below is not to be considered part of the above Progress Note. <Nilson Hudson - Last Filed: 08/03/17 12:28> Exam Vital signs: Temperature 96.8 F 08/03/17 10:56 Pulse Rate 112 H 08/03/17 10:56 Respiratory Rate 18 08/03/17 10:56 Blood Pressure 139/79 08/03/17 10:56 Pulse Oximetry 97 08/03/17 10:56 - Urinary Catheter Management Urethral Cath placed during this visit: no Results 08/03/17 04:48 08/03/17 04:48 Cardiac Enzymes 08/03/17 Range/Units 04:48 AST 109 H D (14-36) U/L CBC 08/03/17 Range/Units 04:48 WBC 5.6 (4.5-11.0) T/MM3 RBC 4.38 (4.00-5.20) M/MM3 Hgb 12.9 (12-16) GM/DL Hct 38.3 (36-46) % Plt Count 118 L (130-400) T/MM3 Comprehensive Metabolic Panel 08/03/17 Range/Units 04:48 Sodium 139 (134-144) MEQ/L Potassium 3.7 (3.6-5) MEQ/L Chloride 104 (98-107) MEQ/L Carbon Dioxide 26 (22-30) MEQ/L BUN 14.0 (7-17) MG/DL Creatinine 1.0 (0.7-1.2) MG/DL Glucose 118 H (65-110) MG/DL Calcium 8.6 (8.4-10.2) MG/DL Unconjugated Bilirubin 1.40 H (0.00-1.1) MG/DL AST 109 H D (14-36) U/L ALT 551 H (9-52) U/L Alkaline Phosphatase 143 H (38-126) U/L Total Protein 6.4 (6.3-8.2) G/DL Albumin 3.6 (3.5-5.0) G/DL Intake and Output 08/02/17 08/03/17 08/03/17 22:59 06:59 14:59 Intake Total 300 / 300 120 / 120 Output Total 100 / 100 700 / 700 40 / 40 Balance -100 / -100 -400 / -400 80 / 80 Intake: Oral 300 / 300 120 / 120 Output: Urine 100 / 100 700 / 700 40 / 40 Other: Urine Appearance Clear Clear Clear Urine Color Light Nallely Yellow Straw Urine Odor Normal # Voids 1 # Incontinent Voids 1 Weight 67.5 kg Patient Weight 08/04/17 06:59 Weight 67.5 kg Assessment and Plan - Assessment and Plan (1) Atrial fibrillation with RVR Current visit: No Status: Chronic (2) Essential (primary) hypertension Current visit: No Status: Chronic (3) Mixed hyperlipidemia Current visit: No Status: Chronic (4) Diastolic CHF, acute Current visit: No Status: Chronic (5) Elevated transaminase level Current visit: Yes Status: Acute - Attestation Attestation Narrative: 08/03/17 12:28 Recommendation After examining the patient I agree with the above assessment. I am involved in the formulation of the patient's plan of care. Hospital Course Summary Disclaimer: The visit summary below is not to be considered part of the above Progress Note.
--- NOTE | 2017-08-02 16:15 | CT Scan Report ---
EXAM: CT head/brain wo con LOCATION OF DICTATION: [facility] HISTORY: s/p fall with contusion to head, on Eliquis COMPARISON: No prior studies available for comparison. TECHNIQUE: Axial CT images through the head were performed without contrast. Iterative Reconstruction dose reducing technique was utilized. FINDINGS: The ventricles are of normal size, shape, and contour for the patient's age. There are scattered areas of low attenuation in the white matter which most likely represent changes from chronic microvascular ischemia. Right ventriculoperitoneal shunt is in place from a parietal approach extending to the right lateral ventricle with the tip near the midline. There is no hydrocephalus. Subtle increased extra-axial linear density involving the left cerebral convexity predominantly in the region of the left frontal and parietal lobes suspicious for subdural hemorrhage. There is also subtle increased density within the right frontal lobe which also may reflect subdural hemorrhage. Close interval follow-up is recommended. The visualized portions of the skull base, midface, and calvarium demonstrate no abnormality. The paranasal sinuses are well aerated and free of significant disease. The tympanic and mastoid cavities appear normal. IMPRESSION: 1. There is subtle increased density about the left cerebral convexity predominantly involving the left frontal/parietal lobes and subtle increased density demonstrated in the right frontal lobe. The findings may reflect extra-axial/subdural hemorrhage and close interval follow-up is recommended. 2. Age-related atrophy and moderate deep/subcortical white matter disease. 3. Right-sided ventriculoperitoneal shunt catheter in place the tip overlying the right lateral ventricle without hydrocephalus. .
[2017-08-02] MEDS ORDERED: LOSARTAN 100 MG TABLET PO SCH (16:49)
[2017-08-02] MEDS: SALINE FLUSH 10ml SYRINGE IV PRN (21:24)
[2017-08-03] MEDS: OMEPRAZOLE 20 MG CAPSULE PO SCH (06:25)
[2017-08-03] MEDS: FUROSEMIDE 40 MG TABLET PO SCH (08:16)
[2017-08-03] MEDS: DiltiaZEM CD 360 MG CAPSULE PO SCH (08:16)
[2017-08-03] MEDS: DOCUSATE SODIUM 100 MG CAPSULE PO SCH (08:16)
[2017-08-03] MEDS: SALINE FLUSH 10ml SYRINGE IV PRN (08:16)
[2017-08-03] MEDS: DIGOXIN 125 MCG TABLET PO SCH (08:16)
--- NOTE | 2017-08-03 08:30 | CT Scan Report ---
Indication: recheck subdurals, fall and CT done 08/02 PROCEDURE: CT head/brain wo con: Encounter: Initial Comparison: August 02, 2017 and November 28, 2015. Technique: Axial CT images through the head were performed without contrast. Iterative Reconstruction dose reducing technique was utilized. FINDINGS: Chronic high attenuation crescentic extra-axial collection overlying the left frontal lobe, stable dating back to November 2015. There is a more nodular 1 cm area at the inferior aspect of the collection that could represent a small meningioma. Right parietal approach ventriculostomy catheter in stable position. The ventricles are stable. There are scattered areas of low attenuation in the white matter which most likely represent changes from chronic microvascular ischemia. The brainstem, cerebellum, and cerebral hemispheres otherwise have a normal morphology and CT attenuation. There is no evidence of midline displacement. No acute hemorrhage, signs of acute territorial stroke or edema is evident. The visualized portions of the skull base, midface, and calvarium demonstrate no abnormality. The paranasal sinuses are well aerated and free of significant disease. The tympanic and mastoid cavities appear normal. IMPRESSION: 1. No acute intracranial abnormality or hemorrhage. Unchanged appearance of the chronic left frontal extra-axial mixed attenuation collection. 2. Possible 1 cm small left frontal meningioma. .
[2017-08-03] MEDS ORDERED: APIXABAN 5 MG TABLET PO SCH (09:00)
--- NOTE | 2017-08-03 09:45 | Discharge Summary ---
<Monika Martinez - Last Filed: 08/03/17 10:07> Discharge Information Date of admission: 07/29/17 16:58 Anticipated date of discharge: 08/03/17 Attending Physician: Nilson Hudson MD Primary care physician: Pankaj Aroar MD Consults: 07/28/17 15:19 Doctor [Physician Consult] [CONS] Routine Consulting Provider: Beteda Greenfield Reason For Exam: continued care Ordering Provider has Notified Environmental Scientists: Yes 07/29/17 15:29 Doctor [Physician Consult] [CONS] Routine Consulting Provider: Beteda Greenfield Reason For Exam: CONTINUITY OF CARE Ordering Provider has Notified Environmental Scientists: Yes 07/30/17 21:54 Physician Consult [CONS] Routine Consulting Provider: Nick Doll Reason For Exam: DO Ordering Provider has Notified Environmental Scientists: Yes - Discharge Diagnosis (1) Atrial fibrillation with RVR Status: Chronic (2) Essential (primary) hypertension Status: Chronic (3) Mixed hyperlipidemia Status: Chronic (4) Diastolic CHF, acute Status: Chronic (5) Elevated transaminase level Status: Acute - Procedures Procedures: DATE OF PROCEDURE July 29, 2017 HISTORY The patient is an 87-year-old lady who was admitted with atrial fibrillation with rapid ventricular rate on chronic anticoagulation and was referred for DC cardioversion. Informed consent was obtained after explaining the procedure and the potential risks to the patient who agreed to proceed with the procedure. PROCEDURE DC cardioversion. DESCRIPTION OF PROCEDURE Conscious sedation was performed using Versed and fentanyl. Anterior-posterior Zoll pads were applied. 360 joules of energy was delivered in synchronized manner and patient converted from atrial fibrillation to junctional rhythm with ventricular rate of 40s. occasionally she goes into sinus and goes back into junctional. The patient tolerated the procedure well with no complications. IMPRESSION Successful cardioversion of atrial fibrillation to junctional rhythm and with occasional sinus. The patient appears to have sick sinus syndrome with previous hospitalization and current hospitalization with severe bradycardia. Patient may require pacemaker however for now will watch her rate and rhythm. We may consider starting her on antiarrhythmics to maintain sinus if the heart rate and rhythm recovers. - Laboratory Labs: 08/03/17 04:48 08/03/17 04:48 Hospital Course This is a general summary of the patient's hospital course. For more details refer to the complete medical record. Hospital course: Pt was seen in office with Dr. Hudson on 07/28/17, her ECG at that time showed AFib RVR, rate 120's. She was admitted to [facility] for rate control and possible DCCV. She was diuresed with a total of 80mg IV lasix. On 07/29/2017 She underwent a DCCV, and cardizem gtt. She converted to a junctional rhythm in the 40's, then eventually into SR, SB with PAC's on Tele. She was difficult to arouse post versed, having difficulty with ADL's, she was made NPO. She became hypotensive with low UO yesterday evening and bolused 500cc, then placed on 75cc /hr of NS. Lasix PO was held today. Per nursing report she roused to oral care by the bedside RN with increased lucidity, baseline mild dementia. 07/31/2017 she is awake, alert and oriented. She has been up to chair and walked down the vargas and back with walker. BP is 130 -170. In A-fib HR 110's to 130. She denies palpitations, chest pain, SOB or any pain. Meds adjusted for better HR control - see under diagnosis. 08/01/2017 she is A,A, and Ox3. She has walked in vargas. She states she is tired and not much appetite today. She has had a BM today but feels constipated. HR much better controlled with med adjusted. She denies CP, SOB, or palpitations but not up to par today. She lives in independent living at [facility] in [facility] and wants to walk to keep her strength up. 07/29/2017 Somnolent s/p DCCV 07/29/17, episode of hypotension, 500cc bolus and fluids 75cc/ hr started. Pt aroused easily but continues to be sleepy. Diltiazem 240mg daily, hold atenolol. Monitor BP, if hypertensive increase diltiazem. ECG today Sinus Arrhythmia w/PAC's, rate 78bpm Restart ELiquis 2.5mg bid Monitor Cr, fluid volume status for lasix need. Continue to hold for now due to hypotensive episode. Recheck lab this PM, LFT's high, will consult hospitalist. Thank you Dr. Rivera 07/30/2017 Eliquis restarted at 2.5mg bid due to Cr >1.5 and age >88 Lasix restart 40mg daily PO in AM, BNP elevated on check today, consider gentle diureses tomorrow Troponin check today negative Discussion with Dr. Doll, he recommend a CT of liver w/contrast if LFT's trend down 07/31/2017 A-fib: - s/p DCCV into SR then returned to A-fib w RVR - Remains in A-fib, HR 1102's to 130. BP 130 - 170. - Last night received Dig 0.5mg and dig 0.25 4hrs later - for HR 130's - no significant effect. with Cr slightly elevated - no more Dig - Received Cardizem 240mg today. Increased Cardizem 360mg daily starting tomorrow by Dr. Rivera. - Started on metoprolol for better HR control - BP will tolerate. - cont Eliquis 2.5mg BID for anticoagulation for stroke prevention. DHF +2 edema in legs and diminished breath sounds. - cont lasix. - Monitor wts, lytes and renal function. HTN - on BB and Cardizem as above. Elevated transaminase / and lipase - per Dr. Rivera - U/S pending, may need CT. 08/01/2017 A-fib: - s/p DCCV into SR then returned to A-fib w RVR - Remains in A-fib, By 1100 HR down to 60's - 110's. HR better controlled. - Received Dig 0.5mg IVP x1 this am. and cont Dig 0.125 mg po daily - Received Cardizem 360mg - first dose of increased cardizem this am. - Received metoprolol 25mg BID first dose yest. Increased metoprolol 50mg BID today per Dr. Rivera (stop home atenolol.). - cont Eliquis 2.5mg BID for anticoagulation for stroke prevention. - consider increasing Eliquis since Cr normalized. CDHF - BNP 4180. She is not SOB while sitting. Mild edema. but has pleural effusion. - 08/01 U/O > 3000 - large diuresis. CXR effusion is improved. +1 edema in legs and diminished breath sounds. - cont lasix. - Monitor wts, lytes and renal function. Pleural effusion on right - decreased per CXR - cont lasix. - encourage OOB, IS, deep breathing, walking TID. HTN - on BB and Cardizem as above. - on losartan - home dose. Elevated transaminase / and lipase - LFT's and Lipase improved. Lipase 368 -> 325 - per Dr. Rivera - U/S pending, may need CT. Hep panel pending. Hypokalemia - Replaced KCL 40mEq po x1 and KCL 20 mEq po daily. cont to monitor. Hypomag - Replaced Mag Sul 1gm this am. 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 Rivera for the consult and assistance. - Dr. Hudson did not see pt on this day, but agrees with plan of care. 08/02/17 AFib: Remains in Afib, rate controlled with Cardizem, Metoprolol and the addition of Digoxin. - Dig level in am - Continue Eliquis 2.5mg for anticoagulation CHF: Lungs sounds clear but diminished right base. No pedal edema today. - Continue home Lasix 40mg po daily HTN: Suboptimal control, Increase Losartan to 100mg daily. Exam Vital signs: Temperature 97.8 F 08/03/17 07:18 Pulse Rate 100 08/03/17 08:16 Respiratory Rate 17 08/03/17 07:18 Blood Pressure 136/94 H 08/03/17 07:18 Pulse Oximetry 96 08/03/17 07:18 Results 08/03/17 04:48 08/03/17 04:48 Cardiac Enzymes 08/03/17 Range/Units 04:48 AST 109 H D (14-36) U/L CBC 08/03/17 Range/Units 04:48 WBC 5.6 (4.5-11.0) T/MM3 RBC 4.38 (4.00-5.20) M/MM3 Hgb 12.9 (12-16) GM/DL Hct 38.3 (36-46) % Plt Count 118 L (130-400) T/MM3 Comprehensive Metabolic Panel 08/03/17 Range/Units 04:48 Sodium 139 (134-144) MEQ/L Potassium 3.7 (3.6-5) MEQ/L Chloride 104 (98-107) MEQ/L Carbon Dioxide 26 (22-30) MEQ/L BUN 14.0 (7-17) MG/DL Creatinine 1.0 (0.7-1.2) MG/DL Glucose 118 H (65-110) MG/DL Calcium 8.6 (8.4-10.2) MG/DL Unconjugated Bilirubin 1.40 H (0.00-1.1) MG/DL AST 109 H D (14-36) U/L ALT 551 H (9-52) U/L Alkaline Phosphatase 143 H (38-126) U/L Total Protein 6.4 (6.3-8.2) G/DL Albumin 3.6 (3.5-5.0) G/DL Intake and Output 08/02/17 08/03/17 08/03/17 22:59 06:59 14:59 Intake Total 300 / 300 120 / 120 Output Total 100 / 100 700 / 700 Balance -100 / -100 -400 / -400 120 / 120 Intake: Oral 300 / 300 120 / 120 Output: Urine 100 / 100 700 / 700 Other: Urine Appearance Clear Clear Urine Color Light Nallely Yellow Urine Odor Normal # Incontinent Voids 1 Weight 148 lb 12.992 oz Patient Weight 08/04/17 06:59 Weight 148 lb 12.992 oz - Imaging and Cardiology Imaging & Cardiology Narrative: Date of Exam: 07/28/17 Ordering Provider: Monika Martinez APRN Type of Exam(s): XR chest 1V Reason for Exam(s): afib Indication: afib PROCEDURE: XR chest 1V: Encounter: Initial Comparison: June 13, 2017 Findings: Increasing moderate right pleural effusion. Worsening consolidation in the right middle and lower lobes. Left lung appears better aerated with a trace left effusion present. No pneumothorax. Cardiac silhouette remains enlarged. Mediastinal contours are stable. Pulmonary vascularity is less congested than the comparison. Right PARTS INSPECTOR shunt. Overlying monitoring leads. Left humeral hardware. Impression: Increasing moderate right effusion. Date of Exam: 07/30/17 Ordering Provider: Nick Doll MD Type of Exam(s): US liver Reason for Exam(s): Acute liver injury Indication: Acute liver injury PROCEDURE: US liver: Encounter: Initial Comparison: None Technique: Grayscale and color Doppler sonographic imaging of the right upper quadrant of the abdomen was performed. Findings: Hepatic parenchyma is homogeneous without evidence for focal mass. The gallbladder is normal. There is no wall thickening, pericholecystic fluid, sonographic Moreno's sign or cholelithiasis. Both the intra and extrahepatic biliary system are of normal caliber with the common duct measuring 4 mm in dimension. Visualized portions of the head and body of the pancreas are unremarkable. The right kidney is present without collecting system dilatation. The right kidney measures 8.8 cm in length. Impression: Normal right upper quadrant sonogram. Date of Exam: 08/01/17 Ordering Provider: Flor Rivera MD Type of Exam(s): XR chest 2V Reason for Exam(s): pleural effusion INDICATION: pleural effusion PROCEDURE: CHEST 2-VIEWS UPRIGHT (PA & LAT) Encounter: Initial COMPARISON: July 28, 2017 FINDINGS: Moderate right pleural effusion is stable. Left lung remains clear. No pneumothorax. Heart size and mediastinal contours are unchanged. Pulmonary vascular congestion has improved. Impression: Improving pulmonary vascular congestion with a stable moderate right effusion. Date of Exam: 08/02/17 Ordering Provider: Amarilis St Type of Exam(s): CT head/brain wo con Reason for Exam(s): s/p fall with contusion to head, on Eliquis EXAM: CT head/brain wo con LOCATION OF DICTATION: [facility] HISTORY: s/p fall with contusion to head, on Eliquis COMPARISON: No prior studies available for comparison. TECHNIQUE: Axial CT images through the head were performed without contrast. Iterative Reconstruction dose reducing technique was utilized. FINDINGS: The ventricles are of normal size, shape, and contour for the patient's age. There are scattered areas of low attenuation in the white matter which most likely represent changes from chronic microvascular ischemia. Right ventriculoperitoneal shunt is in place from a parietal approach extending to the right lateral ventricle with the tip near the midline. There is no hydrocephalus. Subtle increased extra-axial linear density involving the left cerebral convexity predominantly in the region of the left frontal and parietal lobes suspicious for subdural hemorrhage. There is also subtle increased density within the right frontal lobe which also may reflect subdural hemorrhage. Close interval follow-up is recommended. The visualized portions of the skull base, midface, and calvarium demonstrate no abnormality. The paranasal sinuses are well aerated and free of significant disease. The tympanic and mastoid cavities appear normal. IMPRESSION: 1. There is subtle increased density about the left cerebral convexity predominantly involving the left frontal/parietal lobes and subtle increased density demonstrated in the right frontal lobe. The findings may reflect extra-axial/subdural hemorrhage and close interval follow-up is recommended. 2. Age-related atrophy and moderate deep/subcortical white matter disease. 3. Right-sided ventriculoperitoneal shunt catheter in place the tip overlying the right lateral ventricle without hydrocephalus. . Date of Exam: 08/03/17 Ordering Provider: Loren Garzon MD Type of Exam(s): CT head/brain wo con Reason for Exam(s): recheck subdurals, fall and CT done 08/02 Indication: recheck subdurals, fall and CT done 08/02 PROCEDURE: CT head/brain wo con: Encounter: Initial Comparison: August 02, 2017 and November 28, 2015. Technique: Axial CT images through the head were performed without contrast. Iterative Reconstruction dose reducing technique was utilized. FINDINGS: Chronic high attenuation crescentic extra-axial collection overlying the left frontal lobe, stable dating back to November 2015. There is a more nodular 1 cm area at the inferior aspect of the collection that could represent a small meningioma. Right parietal approach ventriculostomy catheter in stable position. The ventricles are stable. There are scattered areas of low attenuation in the white matter which most likely represent changes from chronic microvascular ischemia. The brainstem, cerebellum, and cerebral hemispheres otherwise have a normal morphology and CT attenuation. There is no evidence of midline displacement. No acute hemorrhage, signs of acute territorial stroke or edema is evident. The visualized portions of the skull base, midface, and calvarium demonstrate no abnormality. The paranasal sinuses are well aerated and free of significant disease. The tympanic and mastoid cavities appear normal. IMPRESSION: 1. No acute intracranial abnormality or hemorrhage. Unchanged appearance of the chronic left frontal extra-axial mixed attenuation collection. 2. Possible 1 cm small left frontal meningioma. - EKG Interpretation EKG shows: atrial fibrillation Discharge Plan - Med Rec/Dispo Referrals/Follow Up: Nilson Hudson MD [Physician] - 08/17/17 2:30 pm Marie Instructions: [facility] Congestive Heart Failure, A-fib (Atrial Fibrillation) (DC), Cardioversion (DC) Prescriptions: New Metoprolol Tartrate [Lopressor] 75 mg PO BIDWM #90 tab Potassium Chloride [K-Dur] 20 meq PO WB #30 tab Digoxin [Lanoxin] 125 mcg PO DAILY #30 tab Losartan [Cozaar] 100 mg PO HS #30 tab Continue Apixaban [Eliquis] 2.5 mg PO BID #30 tab DiltiaZEM CD [Cardizem Cd] 360 mg PO DAILY #30 cap Furosemide [Lasix] 40 mg PO DAILY #30 tab Levalbuterol 1.25mg/3ml NEB [XOPENEX 1.25mg/3ml] 1.25 mg AEROSOL RTTID #1 neb Sennosides [Senna Lax] 17.2 mg PO HS tablet Acetaminophen [Tylenol] 650 mg PO Q6H PRN tablet PRN Reason: Pain Omeprazole [Prilosec] 1 cap PO ACBID #30 cap Discontinued Atenolol [Tenormin] 1 tab PO DAILY Amlodipine [Norvasc] 5 mg PO DAILY Losartan Potassium [Cozaar] 50 mg PO HS - Disposition 03 To U Not [facility] (SNF) - Dismissal Complete Discharge Instructions are:: Complete <Nilson Hudson - Last Filed: 08/06/17 14:47> Discharge Information Date of admission: 07/29/17 16:58 Attending Physician: Nilson Hudson MD Primary care physician: Pankaj Arora MD Consults: 07/28/17 15:19 Doctor [Physician Consult] [CONS] Routine Consulting Provider: [facility] Reason For Exam: continued care Ordering Provider has Notified Environmental Scientists: Yes 07/29/17 15:29 Doctor [Physician Consult] [CONS] Routine Consulting Provider: [facility] Reason For Exam: CONTINUITY OF CARE Ordering Provider has Notified Environmental Scientists: Yes 07/30/17 21:54 Physician Consult [CONS] Routine Consulting Provider: Nick Doll Reason For Exam: DO Ordering Provider has Notified Environmental Scientists: Yes - Discharge Diagnosis (1) Atrial fibrillation with RVR Status: Chronic (2) Essential (primary) hypertension Status: Chronic (3) Mixed hyperlipidemia Status: Chronic (4) Diastolic CHF, acute Status: Chronic (5) Elevated transaminase level Status: Acute - Laboratory Labs: 08/03/17 04:48 08/03/17 04:48 Hospital Course This is a general summary of the patient's hospital course. For more details refer to the complete medical record. Exam Vital signs: Temperature 96.8 F 08/03/17 10:56 Pulse Rate 112 H 08/03/17 10:56 Respiratory Rate 18 08/03/17 10:56 Blood Pressure 139/79 08/03/17 10:56 Pulse Oximetry 97 08/03/17 10:56 Results 08/03/17 04:48 08/03/17 04:48 Attestation Narriative - Attestation Attestation Narrative: Recommendation After examining the patient I agree with the above assessment. I am involved in the formulation of the patient's plan of care.
--- NOTE | 2017-08-03 09:51 | Extended Care Facility Orders ---
<Monika Martinez - Last Filed: 08/03/17 09:50> Admission Orders Allergies/Adverse Reactions: Allergies No Known Allergies Allergy (Unverified 11/09/16 17:15) Admitting Diagnosis: starting antiarrhythmic Admitting Physician: Nilson Hudson MD Attending Physician: Nilson Hudson MD Anticiapted Length of Stay: 30 days or less Rehab Potential: fair Rehab Prognosis: fair Diet: 07/30/17 Dinner Cardiac Diet [DIET] Sodium Restriction: 2GRAM Fat Content: LOW Comment: CHOPPED MEAT May use Facility Protocol or Standing Orders: Yes May have flu vaccine: Yes Evaluations/Treatment: PT, OT [facility] Certification: I certify that SNF services are required to be given on an Inpatient basis because of the patients need for retirement care on a continuing basis for the condition(s) for which he/she received inpatient hospital services prior to his/her transfer to the SNF. SNF inpatient care is necessary for the following reasons Indication for [facility]: Assess Anticoagulation Therapy - Additional Information In Event of Arrest: Start CPR,call 911,send patient to the ER Resident is Aware of Diagnosis: Yes Referrals: Nilson Hudson MD [Physician] - 08/17/17 2:30 pm <Nilson Hudson - Last Filed: 08/06/17 14:48> Admission Orders Admitting Diagnosis: starting antiarrhythmic Admitting Physician: Nilson Hudson MD Attending Physician: Nilson Hudson MD [facility] Certification: I certify that SNF services are required to be given on an Inpatient basis because of the patients need for retirement care on a continuing basis for the condition(s) for which he/she received inpatient hospital services prior to his/her transfer to the SNF. SNF inpatient care is necessary for the following reasons
[2017-08-03 10:56] VITALS: BP 139/79; PULSE 112; RESP 18; TEMP 96.8; O2SAT 97
--- NOTE | 2017-08-03 18:21 | Progress Note ---
- Date 08/03/17 Subjective: The patient was seen earlier today in her room. She stated she was feeling well. She denied any complaints. She has been eating and drinking well. I did receive a call from Dr. Siddiqi, radiologist this morning and he stated that there was no acute intracranial abnormality or hemorrhage. There is unchanged appearance of the chronic left frontal extra-axial mixed attenuation collection dating back to November 2015. There is a more nodular 1 cm area in the inferior aspect of the collection that could represent a small meningioma. Objective Vital signs: Temperature 96.8 F 08/03/17 10:56 Pulse Rate 112 H 08/03/17 10:56 Respiratory Rate 18 08/03/17 10:56 Blood Pressure 139/79 08/03/17 10:56 Pulse Oximetry 97 08/03/17 10:56 Height/Weight/BMI: Height 1.57 m Weight 67.5 kg Body Mass Index 29.0 Comments: GEN-alert, mildly confused-appears at baseline, pleasant, no acute distress HEENT-pupils are equal, sclera anicteric, oropharynx is moist NECK-supple CV-regular rate and rhythm CHEST-clear to auscultation bilaterally ABD-soft, nontender with positive bowel sounds -no Larose EXT-no edema NEURO-no focal deficits Results - Labs CBC & Chem 7: 08/03/17 04:48 08/03/17 04:48 Labs: Laboratory Tests 08/02/17 08/03/17 04:27 04:48 Total Bilirubin 2.00 H Unconjugated Bilirubin 1.40 H AST 109 H D ALT 551 H Alkaline Phosphatase 143 H Total Protein 6.4 Albumin 3.6 Globulin 2.8 Albumin/Globulin Ratio 1.3 Free T4 1.78 Free T3 3.17 - Impressions CT head without contrast FINDINGS: Chronic high attenuation crescentic extra-axial collection overlying the left frontal lobe, stable dating back to November 2015. There is a more nodular 1 cm area at the inferior aspect of the collection that could represent a small meningioma. Right parietal approach ventriculostomy catheter in stable position. The ventricles are stable. There are scattered areas of low attenuation in the white matter which most likely represent changes from chronic microvascular ischemia. The brainstem, cerebellum, and cerebral hemispheres otherwise have a normal morphology and CT attenuation. There is no evidence of midline displacement. No acute hemorrhage, signs of acute territorial stroke or edema is evident. The visualized portions of the skull base, midface, and calvarium demonstrate no abnormality. The paranasal sinuses are well aerated and free of significant disease. The tympanic and mastoid cavities appear normal. IMPRESSION: 1. No acute intracranial abnormality or hemorrhage. Unchanged appearance of the chronic left frontal extra-axial mixed attenuation collection. 2. Possible 1 cm small left frontal meningioma. Assessment and Plan (1) Acute kidney injury (nontraumatic) Status: Acute (2) Acute and subacute hepatic failure without coma Status: Acute (3) Subdural hematoma Status: Acute Assessment and Plan: 08/03/2017 Impression Fall yesterday. Patient did hit her head. Initial read of CT was that there could be to acute subdural hematomas. Repeat CT head today with review of old CTs including November 2015 show these findings were present then and patient does not have an acute subdural hematoma. Recent anticoagulation for A. 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 Elevated liver enzymes, transaminases are markedly improved. Bilirubin improved today. Alk phosphatase is up slightly. The cause of her elevated liver enzymes is unknown. She did have some hypotension. Hypertension Probable 1 cm small left frontal meningioma seen on CT head Plan Overall, the patient is doing quite well. I did call and notify Dr. Hudson that on review of current CT scans and previous CT scans, it was not felt that she has an acute subdural hematoma and anticoagulation can be restarted. Liver enzymes are markedly improved. From my standpoint, the patient could be discharged back to the [facility]. She was having frequent urination and I did check a urinalysis which was normal. Hospital Course Summary Disclaimer: The visit summary below is not to be considered part of the above Progress Note. Hospital Course: Pt was seen in office with Dr. Hudson on 07/28/17, her ECG at that time showed AFib RVR, rate 120's. She was admitted to [facility] [place] for rate control and possible DCCV. She was diuresed with a total of 80mg IV lasix. On 07/29/2017 She underwent a DCCV, and cardizem gtt. She converted to a junctional rhythm in the 40's, then eventually into SR, SB with PAC's on Tele. She was difficult to arouse post versed, having difficulty with ADL's, she was made NPO. She became hypotensive with low UO yesterday evening and bolused 500cc, then placed on 75cc /hr of NS. Lasix PO was held today. Per nursing report she roused to oral care by the bedside RN with increased lucidity, baseline mild dementia. 07/31/2017 she is awake, alert and oriented. She has been up to chair and walked down the siddiqi and back with walker. BP is 130 -170. In A-fib HR 110's to 130. She denies palpitations, chest pain, SOB or any pain. Meds adjusted for better HR control - see under diagnosis. 08/01/2017 she is A,A, and Ox3. She has walked in siddiqi. She states she is tired and not much appetite today. She has had a BM today but feels constipated. HR much better controlled with med adjusted. She denies CP, SOB, or palpitations but not up to par today. She lives in independent living at [facility] and wants to walk to keep her strength up. 07/29/2017 Somnolent s/p DCCV 07/29/17, episode of hypotension, 500cc bolus and fluids 75cc/ hr started. Pt aroused easily but continues to be sleepy. Diltiazem 240mg daily, hold atenolol. Monitor BP, if hypertensive increase diltiazem. ECG today Sinus Arrhythmia w/PAC's, rate 78bpm Restart ELiquis 2.5mg bid Monitor Cr, fluid volume status for lasix need. Continue to hold for now due to hypotensive episode. Recheck lab this PM, LFT's high, will consult hospitalist. Thank you Dr. Rivera 07/30/2017 Eliquis restarted at 2.5mg bid due to Cr >1.5 and age >88 Lasix restart 40mg daily PO in AM, BNP elevated on check today, consider gentle diureses tomorrow Troponin check today negative Discussion with Dr. Doll, he recommend a CT of liver w/contrast if LFT's trend down 07/31/2017 A-fib: - s/p DCCV into SR then returned to A-fib w RVR - Remains in A-fib, HR 1102's to 130. BP 130 - 170. - Last night received Dig 0.5mg and dig 0.25 4hrs later - for HR 130's - no significant effect. with Cr slightly elevated - no more Dig - Received Cardizem 240mg today. Increased Cardizem 360mg daily starting tomorrow by Dr. Rivera. - Started on metoprolol for better HR control - BP will tolerate. - cont Eliquis 2.5mg BID for anticoagulation for stroke prevention. DHF +2 edema in legs and diminished breath sounds. - cont lasix. - Monitor wts, lytes and renal function. HTN - on BB and Cardizem as above. Elevated transaminase / and lipase - per Dr. Rivera - U/S pending, may need CT. 08/01/2017 A-fib: - s/p DCCV into SR then returned to A-fib w RVR - Remains in A-fib, By 1100 HR down to 60's - 110's. HR better controlled. - Received Dig 0.5mg IVP x1 this am. and cont Dig 0.125 mg po daily - Received Cardizem 360mg - first dose of increased cardizem this am. - Received metoprolol 25mg BID first dose yest. Increased metoprolol 50mg BID today per Dr. Rievra (stop home atenolol.). - cont Eliquis 2.5mg BID for anticoagulation for stroke prevention. - consider increasing Eliquis since Cr normalized. CDHF - BNP 4180. She is not SOB while sitting. Mild edema. but has pleural effusion. - 08/01 U/O > 3000 - large diuresis. CXR effusion is improved. +1 edema in legs and diminished breath sounds. - cont lasix. - Monitor wts, lytes and renal function. Pleural effusion on right - decreased per CXR - cont lasix. - encourage OOB, IS, deep breathing, walking TID. HTN - on BB and Cardizem as above. - on losartan - home dose. Elevated transaminase / and lipase - LFT's and Lipase improved. Lipase 368 -> 325 - per Dr. Rivera - U/S pending, may need CT. Hep panel pending. Hypokalemia - Replaced KCL 40mEq po x1 and KCL 20 mEq po daily. cont to monitor. Hypomag - Replaced Mag Sul 1gm this am. Normal Pressure Hydrocephalus - H/O [employer] shunt - THANK you Dr. Rivera for the consult and assistance. - Dr. Hudson did not see pt on this day, but agrees with plan of care. 08/02/17 AFib: Remains in Afib, rate controlled with Cardizem, Metoprolol and the addition of Digoxin. - Dig level in am - Continue Eliquis 2.5mg for anticoagulation CHF: Lungs sounds clear but diminished right base. No pedal edema today. - Continue home Lasix 40mg po daily HTN: Suboptimal control, Increase Losartan to 100mg daily.
== END 2017-08-03 13:50 | DRG 308 ==
LOC: CCU → MED 08-01 13:50
PROVIDERS: ADMIT Internal Medicine Cardiovascular Disease; ATTEND Internal Medicine Cardiovascular Disease